=== PATIENT | female | born 1965 | race Caucasian/White ===

== ENCOUNTER 2022-04-09 09:48 | Outpatient (REF) | payer OTHER, SELFPAY ==
--- NOTE | ~2022-04-09 | US_ITS ---
EXAMINATION: US PELVIS CLINICAL INFORMATION: Postmenopausal bleeding. COMPARISON: None TECHNIQUE: Ultrasound of the pelvis was performed using both transabdominal and transvaginal transducers along with Doppler. Transvaginal imaging was performed due to inadequate visualization transabdominally. FINDINGS: UTERUS: The uterus is anteverted and measures 16.5 x 8.7 x 9.6 cm. The double wall endometrial thickness is 1.21 cm. The uterus is smooth in contour and has normal myometrial echogenicity. There are several hypoechoic lesions seen. 1. Lesion in the fundus measures 3.7 x 3.2 x 4.5 cm. 2. Lesion in the mid body of the uterus posteriorly measures 2.9 x 2.7 x 2.7 cm. 3. Posterior lesion in the body of the uterus measures 3.4 x 3.4 x 4.0 cm. 4. Lesion in body of the uterus mid segment measures 3.4 x 2.2 x 3.8 cm. 5. Lesion in the right fundus posteriorly measures 2.8 x 2.3 x 3.4 cm. ADNEXA: Both ovaries are visualized. There is normal color flow to the adnexa. There is no ovarian torsion. There is no pelvic ascites or fluid collection. The right ovary measures 2.2 x 1.8 x 1.5 cm and volume 2.9 mL. The left ovary is not visualized. US/US pelvic and transvaginal IMPRESSION: Slightly bulky, enlarged uterus with multiple fibroids. Mild endometrial thickness measuring 1.2 cm on the limited views. Unremarkable right ovary. The left ovary is not seen.
== END 2022-04-09 09:49 | disposition home or self-care (01) ==
LOC: HO.HMGCX 09:48
PROVIDERS: Visit Provider Student in an Organized Health Care Education/Training Program
DX: N95.0 Postmenopausal bleeding (principal); Z78.0 Asymptomatic menopausal state
CPT/HCPCS: 76830; 76856

== ENCOUNTER 2022-10-02 17:30 | Outpatient (REF) | payer OTHER, SELFPAY | END 2022-10-02 17:31 | disposition home or self-care (01) | LOC: HO.LNP 17:30 | DX: R30.0 Dysuria (principal) | CPT/HCPCS: 87086 ==

== ENCOUNTER 2023-11-06 10:12 | Emergency (ER) | payer OTHER, SELFPAY ==
--- NOTE | ~2023-11-06 | CT_ITS ---
EXAMINATION: CT ABDOMEN AND PELVIS WITHOUT CONTRAST CLINICAL INFORMATION: Constipation for 2 weeks COMPARISON: None available. TECHNIQUE: Multidetector volumetric imaging was performed from the superior aspect of the liver through the pubic symphysis. Sagittal and coronal reformatted images were obtained on the technologist's workstation. This CT examination was performed using dose optimization techniques as appropriate, variously including the following: *Automated exposure control *Adjustment of mA and/or kV according to patient size (this includes techniques or standardized protocols for targeted exams where dose is matched to indication/reason for exam; i.e. extremities or head) *Use of iterative reconstruction technique DLP: 865 mGy-cm FINDINGS: Evaluation of solid organs, vascular structures, and bowel wall limited in the absence of intravenous contrast. LUNG BASES: Coronary artery calcification present, incompletely visualized. Visualized lung bases otherwise unremarkable. LIVER AND BILIARY TREE: Hepatomegaly with liver spanning 20.7 cm in craniocaudal dimension. No focal hepatic lesions identified. GALLBLADDER: Unremarkable. PANCREAS: Unremarkable. SPLEEN: Unremarkable. ADRENAL GLANDS: Unremarkable. KIDNEYS AND URETERS: Unremarkable. GASTROINTESTINAL TRACT: Mild scattered colonic diverticulosis without evidence for acute diverticulitis. Minimal colonic stool burden. Normal appendix. VASCULAR: Mild aortoiliac calcific atherosclerosis. LYMPH NODES: No lymphadenopathy. PERITONEUM: No ascites. BLADDER: Unremarkable. PELVIC VISCERA: Globular enlargement of the uterus with scattered calcifications, suboptimally visualized though likely represents myomas. ABDOMINAL AND PELVIC WALL: Unremarkable. OSSEOUS STRUCTURES: Mild multilevel degenerative spondylosis of the visualized lower thoracic spine. Lower lumbar facet arthropathy. CT/CT abdomen pelvis wo IV con IMPRESSION: 1. No acute abnormality of the abdomen or pelvis within the limitations of noncontrast technique. Minimal colonic stool burden, as clinically queried. 2. Hepatomegaly. 3. Probable coronary artery calcifications. Correlate with cardiac risk factors.
--- NOTE | ~2023-11-06 | XR_ITS ---
EXAMINATION: XR ABDOMEN KUB CLINICAL INDICATION: Constipation COMPARISON: None available. TECHNIQUE: AP view of the abdomen. FINDINGS: The bowel gas pattern is normal with no evidence of ileus or obstruction. No unusual soft tissue calcifications are noted. The bones are unremarkable. XR/XR KUB IMPRESSION: Unremarkable examination.
[2023-11-06 10:20] VITALS: BP 143/63; PULSE 87; RESP 18; TEMP 36.7; O2SAT 97; BMI 47.5
[2023-11-06 11:12] VITALS: BP 149/83; RESP 18; TEMP 36.5; O2SAT 96
--- NOTE | 2023-11-06 11:16 | ED_ITS ---
HPI - General Adult General Chief complaint: Abdominal Pain Stated complaint: constipation 2weeks Time Seen by Provider: 11/06/23 10:54 Source: patient Mode of arrival: ambulatory Limitations: physical limitation (vision impairment) History of Present Illness HPI narrative: 58 year old female with a history of legally blind, IBS, HTN, HLD, anemia on supplemental iron, hemorrhoids, uterine fibroids, heavy menses, urine incontinence, tooth abscess presenting with constipation for 2 weeks. Patient reports her last bowel movement was 2-3 days ago up until yesterday when she took laxatives at home. She reports she had a bowel movement last night following the laxatives that required straining, but it was not the bowel movement I was looking for . Patient denies abdominal pain, but reports discomfort. Patient reports she was taking Metamusal daily, but stopped because it upset her stomach. Patient reports her stools are typically loose and occur 1-2 times per day. Patient denies fever, chills, recent sick contacts, nausea, vomiting, diarrhea or hematochezia. Patient reports pain with defecation, and a history of blood. Patient reports stools last night were dark. Of note, patient was on supplemental iron for anemia caused by heavy menses, but states that she has not had her period in over 1 year. Related Data Home Medications Medication Instructions Recorded Confirmed ferrous sulfate 325 mg (65 mg 325 mg PO DAILY 10/02/22 10/02/22 iron) tablet (FeroSul) lisinopril 10 mg tablet 10 mg PO DAILY 10/02/22 10/02/22 pravastatin 40 mg tablet 40 mg PO DAILY 10/02/22 10/02/22 Previous Rx's Medication Instructions Recorded docusate sodium 100 mg capsule 100 mg PO BID #20 caps 11/06/23 (Colace) sennosides 8.6 mg tablet (senna) 8.6 mg PO BEDTIME #14 tabs 11/06/23 Allergies Allergy/AdvReac Type Severity Reaction Status Date / Time seafood Allergy Itching Verified 11/06/23 10:20 Review of Systems 2 Review of Systems: Constitutional : No Weight loss, No Fever, No Chills, No Fatigue, No Malaise ENT/Mouth : No sore throat, No Rhinorrhea Eyes: No Eye Pain, No Swelling, No Redness Cardiovascular : No Chest Pain, No SOB, No Dyspnea on Exertion, No Orthopnea, No Edema, No Palpitations Respiratory : No Cough, No Sputum, No Wheezing Gastrointestinal :+ Constipation. No Nausea, No Vomiting, No Diarrhea, + abdominal Pain, No Hematochezia, No Melena Genitourinary : No Dysuria, No Urinary Frequency, No Hematuria, Musculoskeletal : No joint pain, No Myalgias, No Joint Swelling Skin : No Skin Lesions, No rash Neuro : No Weakness, No Numbness, No Dizziness, No Headache Psych : No Anxiety/Panic, No Depression Heme/Lymph: No Bruising, No Bleeding,No Lymphadenopathy Endocrine : No Polyuria, No Polydipsia All other systems reviewed and are negative Yes all other systems are reviewed and are negative [facility] Past Medical History Attestation statement: The following information was validated with the patient. Source: old records reviewed and nursing notes reviewed Onset Date is defined in the Problem List Problems that require an onset date and time if occurred within 24 hrs of arrival to the ED Aortic Dissection and Rupture; Neurologic impairment; Cardiopulmonary Arrest; Endotracheal Intubation; Insertion or Replacement of Mechanical Circulatory Assist Device Medical History Dysuria Social History Social History Alcohol intake: former Smoked in Last 30 Days: No Use of substances other than those prescribed or required for medical reasons: No Advance Directives: No Advance Directives Information Provided: Yes Physical Exam ED Vital Signs: Vital Signs - 24 hr 11/06/23 10:20 11/06/23 11:12 11/06/23 15:31 Temperature 98.0 F 97.7 F 97.7 F Pulse Rate 87 81 Respiratory Rate 18 18 18 Blood Pressure 143/63 H 149/83 H 131/64 Pulse Oximetry 97 96 100 Oxygen Delivery Method Room Air Room Air Room Air BMI result Body Mass Index 47.5 Vital signs significant for hypertension Appearance: Alert.? Oriented X3.?Anxious, tapping foot while sitting on the edge of the bed. No acute distress.? Head: Normocephalic, atraumatic, no step-offs or deformities Eyes: Pupils equal, round and reactive to light.? ENT: Pharynx normal.??External ears normal, TMs normal bilaterally and EAC's normal. No pain with manipulation of external ears bilaterally. No mastoid tenderness. Neck: Normal inspection.? Neck supple.? CVS: Normal heart rate and rhythm.? Pulses normal.? Respiratory: No respiratory distress.? Breath sounds normal.? Abdomen: Soft, nondistended with mild discomfort to palpation in the later right and lower quadrants. Bowel sounds present throughout. Skin: Skin warm and dry.? Normal skin color.? Normal skin turgor.? Extremities: No lower extremity edema.? No calf ttp. 5/5 strength to bilateral upper and lower extremities Back: No midline tenderness, no C-spine tenderness, full range of motion, no CVA tenderness bilaterally Neuro: Oriented X 3.? No motor deficit.? No sensory deficit. CN 2-12 intact Course Reevaluation(s) Reevaluation #1: CBC unremarkable. Chemistry unremarkable. UA contaminated no UTI sx. CT no acute abnormality. Hepatomegaly. Coranary artery calcifications. Patient without pain. Will discharge home on senna and Colace. Feeling well. Ambulating without difficulty. Time: 16:18 Medical Decision Making Medical Decision Making [facility] Narrative: 58 year old female presenting with constipation for 2 weeks, last BM yesterday PE significant for LLQ and RLQ abdominal discomfort. Negative McBurneys. Most likely constipation secondary to iron supplementation vs slow transit. Unlikely obstruction, appendicitis, dehydration, IBS, diverticulosis, acute abdomen. Will obtain KUB to rule out obstruction although unlikely Plan labs, imaging. Differential Diagnosis Differential Diagnoses: The differential diagnosis associated with the presentation includes Most likely constipation secondary to iron supplementation vs slow transit. Unlikely obstruction, appendicitis, dehydration, IBS, diverticulosis, acute abdomen. Will obtain KUB to rule out obstruction although unlikely Admission/Observation Consideration of admission/observation: Escalation of care including admission/observation considered Lab Data [facility] Lab Attestation statement: I reviewed the patient's lab results. CBC WNL CMP WNL UA significant for 1+ leukocytes and 2+ bacteria 11/06/23 12:23 11/06/23 12:23 Labs: Lab Results 11/06/23 11/06/23 Range/Units 12:23 12:46 WBC 8.2 (4.8-10.8) X10*3/uL RBC 4.44 (4.20-5.50) X10*6/uL Hgb 13.6 (12.0-16.0) g/dl Hct 41.0 (37.0-47.0) % MCV 92.3 (80.0-98.0) fL MCH 30.6 (27.0-33.0) pg MCHC 33.2 (31.0-35.0) g/dl RDW 12.8 (11.0-16.0) % Plt Count 297 (160-400) X10*3/uL MPV 9.9 (9.4-12.3) fL Immature Gran % (Auto) 0.4 (0.0-0.4) % Neut % (Auto) 57.6 (45-73) % Lymph % (Auto) 31.0 (20-40) % [place] % (Auto) 8.7 (2-11) % Eos % (Auto) 1.8 (0-4) % Baso % (Auto) 0.5 (0-2) % Lymph # (Auto) 2.5 (1.2-4.9) X10*3/uL [place] # (Auto) 0.7 (0.1-1.2) X10*3/uL Eos # (Auto) 0.2 (0.0-0.4) X10*3/uL Baso # (Auto) 0.0 (0.0-0.2) X10*3/uL Abs Immat Gran (auto) 0.03 (0.00-0.03) X10*3/uL Absolute Neuts (auto) 4.7 (2.0-8.3) x10*3/uL Absolute Nucleated RBC 0.000 (0.0-0.012) X10*3/uL Nucleated RBC % (auto) 0.0 (0.0-0.2) /100WBC Sodium 137 (135-145) mmol/L Potassium 4.3 (3.3-5.1) mmol/L Chloride 106 (96-108) mmol/L Carbon Dioxide 21 L (22-29) mmol/L Anion Gap 14 (12-20) BUN 13 (9-16) mg/dL Creatinine 0.74 (0.5-1.4) mg/dL Estim Creat Clear Calc 119.2 Estimated GFR > 60 Random Glucose 105 (60-115) mg/dL Calcium 9.5 (8.4-10.2) mg/dL Total Bilirubin 0.3 (0.0-1.0) mg/dL AST 14 (5-31) U/L ALT 16 (0-31) U/L Alkaline Phosphatase 91 (39-117) U/L Total Protein 7.2 (6.5-8.0) g/dL Albumin 4.1 (3.5-5.0) g/dL Urine Color Yellow Urine Appearance Clear Urine pH 6.5 (5.0-9.0) Ur Specific [place] 1.025 (1.005-1.025) Urine Protein Negative (Neg-Trace) mg/dL Urine Glucose (UA) Negative (Negative) mg/dL Urine Ketones Negative (Negative) mg/dL Urine Blood Negative (Negative) Urine Nitrite Negative (Negative) Ur Leukocyte Esterase Small (1+) H (Negative) Urine RBC 0-2 (0-2) /HPF Urine WBC 0-5 (0-5) /HPF Ur Squamous Epith Cells 11-20 (0-2) /HPF Urine Bacteria 2+ (None Seen) Hyaline Casts 0-2 (0-2) /LPF Independent Interpretation I performed an independent interpretation of an: Plain X-Ray (XR/XR KUB IMPRESSION: Unremarkable examination.) and CT Scan (CT/CT abdomen pelvis wo IV con IMPRESSION: 1. No acute abnormality of the abdomen or pelvis within the limitations of noncontrast technique. Minimal colonic stool burden, as clinically queried. 2. Hepatomegaly. 3. Probable coronary artery calcifications. Correlate with cardiac risk factors) Interpretation: XR/XR KUB IMPRESSION: Unremarkable examination. Radiology Impression Discussion of test interpretation with radiology: I have reviewed the radiologist's reading. Radiologist Impression: XR/XR KUB IMPRESSION: Unremarkable examination. External Record Review External record reviewed: Inpatient record and Outpatient record Critical Care Time Critical Care Time Critical Care Time: No Discharge Plan Discharge Clinical Impression: Constipation, Abdominal pain Patient Disposition: Home, Self-Care Instructions: Constipation (ED) Additional Instructions: Take your medications as prescribed. If you were prescribed antibiotics today, it is important that you take your medication to their entirety, do not skip any doses, do not finish them early. Follow-up with your primary care provider this week. Return to the emergency department with new or worsening symptoms. Such as fevers, chills, chest pain, shortness of breath, nausea, vomiting, dizziness, headache, vision changes, lethargy In case of emergency call 911 Prescriptions: New sennosides [senna] 8.6 mg tablet 8.6 mg PO BEDTIME Qty: 14 0RF docusate sodium [Colace] 100 mg capsule 100 mg PO BID Qty: 20 0RF No Action pravastatin 40 mg tablet 40 mg PO DAILY lisinopril 10 mg tablet 10 mg PO DAILY ferrous sulfate [FeroSul] 325 mg (65 mg iron) tablet 325 mg PO DAILY Referrals: [facility] [place] [facility] [Provider Group] - 3 days Karina Minor MD [Primary Care Provider] - 2 days Stand Alone Forms: Work/School Release
--- NOTE | 2023-11-06 11:16 | PC.NURSE ---
Patient reports has had trouble going to the bathroom lately. Reports gave herself 2 laxatives last night and had diarrhea but still feels as though she has something in her rectum. Reports feeling anxious like she is going to have a panic attack. Reports 01/01 left sided lower abdominal and back pain
[2023-11-06 12:28] LABS: MANUAL DIFF FLAG NO
[2023-11-06 12:30] LABS: Basophils Percent Auto 0.5 % (0-2); Eosinophils Absolute Auto 0.2 X10*3/uL (0.0-0.4); Eosinophils Percent Auto 1.8 % (0-4); Hemoglobin 13.6 g/dl (12.0-16.0); Imm Gran Abs Auto 0.03 X10*3/uL (0.00-0.03); Imm Gran Pct Auto 0.4 % (0.0-0.4); Lymphocytes Absolute Auto 2.5 X10*3/uL (1.2-4.9); Mean Corpuscular HGB Conc 33.2 g/dl (31.0-35.0); Mean Corpuscular Hemoglobin 30.6 pg (27.0-33.0); Mean Corpuscular Volume 92.3 fL (80.0-98.0); Mean Platelet Volume 9.9 fL (9.4-12.3); Monocytes Absolute Auto 0.7 X10*3/uL (0.1-1.2); Monocytes Percent Auto 8.7 % (2-11); Neutrophils Absolute Auto 4.7 x10*3/uL (2.0-8.3); Neutrophils Percent Auto 57.6 % (45-73); Platelet Count 297 X10*3/uL (160-400); Red Blood Count 4.44 X10*6/uL (4.20-5.50); Red Cell Distribution Width 12.8 % (11.0-16.0); White Blood Count 8.2 X10*3/uL (4.8-10.8)
[2023-11-06 12:47] LABS: Alanine Aminotransferase 16 U/L (0-31); Albumin Level 4.1 g/dL (3.5-5.0); Alkaline Phosphatase 91 U/L (39-117); Anion Gap 14 (12-20); Aspartate Amino Transferase 14 U/L (5-31); Bilirubin Total 0.3 mg/dL (0.0-1.0); Blood Urea Nitrogen 13 mg/dL (9-16); Calcium 9.5 mg/dL (8.4-10.2); Carbon Dioxide 21 mmol/L (22-29); Chloride 106 mmol/L (96-108); Creatinine Clr Calc Pharmacy 119.2; Estimated Glomerular Filt Rate > 60; Glucose Random 105 mg/dL (60-115); Potassium 4.3 mmol/L (3.3-5.1); Sodium 137 mmol/L (135-145); Total Protein 7.2 g/dL (6.5-8.0)
[2023-11-06 12:53] LABS: Appearance Urine Clear; Color Urine Yellow; Glucose Urine UA Negative (Negative); Leukocyte Esterase Urine Small (1+) (Negative); Nitrite Urine Negative (Negative); PH 6.5 (5.0-9.0); Specific Gravity - Urine 1.025 (1.005-1.025); UMIC TRIGGER UACC YES; Urine Blood Negative (Negative); Urine Ketones Negative (Negative); Urine Protein Negative (Neg-Trace)
[2023-11-06 13:04] LABS: Bacteria Urine 2+ (None Seen); Hyaline Casts Urine 0-2 /LPF (0-2); RBC Urine 0-2 /HPF (0-2); UACC Culture Trigger YES; WBC Urine 0-5 /HPF (0-5)
[2023-11-06 15:31] VITALS: BP 131/64; PULSE 81; RESP 18; TEMP 36.5; O2SAT 100
--- NOTE | 2023-11-06 17:15 | PC.NURSE ---
Patient with multiple large bms, reports feeling better and ready for discharge
== END 2023-11-06 17:33 | disposition home or self-care (01) ==
PROVIDERS: Physician Assistant; Emergency Provider Emergency Medicine; PCP Student in an Organized Health Care Education/Training Program
DX: K59.00 Constipation, unspecified (principal); R10.31 Right lower quadrant pain; R10.32 Left lower quadrant pain
CPT/HCPCS: 36415; 74018; 74176; 80053; 81001; 85025; 87086; 99284

== ENCOUNTER 2024-01-19 10:47 | Outpatient (AMB) | payer OTHER, SELFPAY ==
[2024-01-19 11:09] VITALS: BP 140/80; PULSE 90; TEMP 36.6; O2SAT 97; BMI 45.8
--- NOTE | 2024-01-19 11:09 | MHC.OFFWIV ---
Intake Vital Signs 01/19/24 11:09 Height 5 ft 6 in Weight 284 lb BMI 45.8 BP 140/80 H Blood Pressure Location Lt brachial Position Sitting Pulse 90 Pulse Source Pulse Oximeter Temp 97.8 F Temp Source Temporal Artery Scan Pulse Oximetry (%) 97 Oxygen Delivery Method Room Air Intake Visit Reasons: EP Cough, mucus Intake Note: pt is here today for cough mucus started 1 week ago Patient Tobacco Use Status: Never used Tobacco Allergies seafood Allergy (Verified 01/19/24 11:37) Itching Do you need a note to return to daycare/school/sports/work: No HPI HPI Comments History of Present Illness Details 58-year-old female comes in today complaining of increasing mucus and cough. She states she has no fever chills sweats or chest pain she is having just excessive mucus. She states she was using [place] cold and flu that was clearing up the symptoms but she has run out PFSH Medical History Dysuria Social History Alcohol intake: former Patient Tobacco Use Status: Never used Tobacco Review of Systems Const All systems reviewed & are unremarkable except as noted in HPI and below Physical Exam Vital Signs: Last Vital Signs Temp 97.8 F 01/19/24 11:09 Pulse 90 01/19/24 11:09 BP 140/80 H 01/19/24 11:09 Pulse Ox 97 01/19/24 11:09 Oxygen Delivery Method Room Air 01/19/24 11:09 BMI result Body Mass Index 45.8 HEENT Head: Yes normal to inspection, Yes normocephalic and Yes atraumatic Ears: hearing grossly normal bilaterally and TM's normal bilaterally General nose exam: Normal external nose present Face and sinus: Yes normal facial exam Throat: Yes posterior oropharynx normal Resp Auscultation: clear to auscultation bilaterally Cardio Rate: regular rate Rhythm: regular rhythm Assessment & Plan Assessment & Plan (1) Cough: Code(s): R05.9 - Cough, unspecified Plan: Push fluids follow up with PCP Plan See plan Orders: Orders SARS-CoV2/FLU/RSV Today R05.9 - Cough, unspecified Medications: New benzonatate 100 mg PO Q4H PRN 14 caps 0RF cough Coding Level of Care Code Est Pt Level 3 (73173) Diagnoses Cough R05.9
== END 2024-01-19 12:41 | disposition home or self-care (01) ==
PROVIDERS: PCP Student in an Organized Health Care Education/Training Program; Visit Provider Physician Assistant Medical
DX: R05.9 Cough, unspecified (principal)
CPT/HCPCS: 99213

== ENCOUNTER 2024-01-19 12:07 | Outpatient (REF) | payer OTHER, SELFPAY ==
[2024-01-19 14:40] LABS: Influenza A PCR NEGATIVE (Negative); Influenza B PCR NEGATIVE (Negative); Resp Syncy Virus RNA Qual PCR NEGATIVE (Negative); SARS COV2 PCR INHOUSE NEGATIVE (Negative)
== END 2024-01-19 12:08 | disposition home or self-care (01) ==
LOC: HO.LAB 12:07
PROVIDERS: Physician Assistant Medical
DX: R05.9 Cough, unspecified (principal)
CPT/HCPCS: 0241U

== ENCOUNTER 2024-02-15 10:56 | Outpatient (AMB) | payer OTHER, SELFPAY ==
--- NOTE | 2024-02-15 10:57 | MHC.OFFVIS ---
Vital Signs 02/15/24 11:06 Height 5 ft 6 in Weight 286 lb 9.615 oz BMI 46.3 BP 144/64 H Blood Pressure Location Lt radial Position Sitting Pulse 101 H Intake Visit Reasons: Constipation Intake Note: Radha presents in the office as a new patient for constipation. CC: She states that she is hard of seeing and states she did have anemia - she was taking iron but was cured of her anemia so that was causing some constipation. Constipation off and on. She states she had to go to Urgent Care and they had to put a saline enema. Allergies seafood Allergy (Verified 02/15/24 11:03) Itching HPI Comments Details: This is a 58y.o F with PMH of HTN, IBS, cone-hayes dystrophy who is here for worsening constipation. Reports that used to go to have BMs that were regular and soft but for the past few months has been noticing BMs are now hard and only goes 3 times a week. Has to take stool softener or suppositories to help which does help very well. Diet is poor in fiber (pop tart, mcdonalds) - fluid intake is around 30-40oz per day. Lifestyle is sedentary. Had a colo when she turned 52 - done at [facility]. Recall 10 years per pt's report. PFSH Medical History Dysuria Surgical History Hx of colonoscopy Social History Alcohol intake: former Patient Tobacco Use Status: Never used Tobacco Review of Systems Const All systems reviewed & are unremarkable except as noted in HPI and below Physical Exam Vital Signs: Last Vital Signs Pulse 101 H 02/15/24 11:06 BP 144/64 H 02/15/24 11:06 BMI result Body Mass Index 46.3 No acute distress, with obesity Nonicteric No overt respiratory effort Abdomen soft, nondistended Const General: comfortable and no acute distress HEENT Head: Yes normocephalic and Yes atraumatic Resp Effort & Inspection: normal respiratory effort and able to speak in complete sentences Assessment & Plan Assessment & Plan (1) Chronic idiopathic constipation: Code(s): K59.04 - Chronic idiopathic constipation Category: Medical Plan Overall assessment consistent with CIC, likely due to lack of dietary fiber, hydration and activity. Plan: -fiber, patient advised to take 25-30 g per day. Can take psyllium/Metamucil supplement -increase fluid intake -increase activity -elevated legs while having bowel movement -add senna 2 tablets at bedtime or in the morning 30-40 minutes before breakfast -if still no response to above, can add MiraLax if needed -up-to-date on colorectal cancer screening -follow-up in 6 weeks to review response Medications: Changed From sennosides (senna) 8.6 mg PO BEDTIME 14 tabs 0RF To sennosides (senna) 17.2 mg (2 x 8.6 mg) PO BEDTIME PRN 60 tabs 0RF constipation 30 days Discontinued docusate sodium (Colace) Discontinued Reason: Doctor's Order 100 mg PO BID 20 caps 0RF Coding Level of Care Code New Pt Level 4 (90194) Diagnoses Chronic idiopathic constipation K59.04
[2024-02-15 11:06] VITALS: BP 144/64; PULSE 101; BMI 46.3
== END 2024-02-15 12:05 | disposition home or self-care (01) ==
PROVIDERS: PCP Student in an Organized Health Care Education/Training Program; Visit Provider Internal Medicine
DX: K59.04 Chronic idiopathic constipation (principal)
CPT/HCPCS: 99204

== ENCOUNTER → 2024-02-15 10:56 | Outpatient (BNVA) | payer OTHER, SELFPAY | PROVIDERS: PCP Student in an Organized Health Care Education/Training Program; Visit Provider Internal Medicine | DX: K59.04 Chronic idiopathic constipation (principal) | CPT/HCPCS: 99202 ==

== ENCOUNTER 2024-07-03 09:33 | Outpatient (AMB) | payer OTHER, SELFPAY ==
--- NOTE | 2024-07-03 11:16 | MHC.OFFWIV ---
Intake Vital Signs 07/03/24 11:18 Height 5 ft 6 in Weight 280 lb BMI 45.2 BP 130/80 Blood Pressure Location Lt brachial Position Sitting Pulse 70 Pulse Source Pulse Oximeter Pulse Oximetry (%) 99 Oxygen Delivery Method Room Air Intake Visit Reasons: EP-rt eye swollen/sore throat Intake Note: pt c/o sore throat and RT eye swollen which has been present for a couple of days. Patient Tobacco Use Status: Never used Tobacco Allergies seafood Allergy (Verified 07/03/24 11:21) Itching Do you need a note to return to daycare/school/sports/work: No HPI HPI Comments History of Present Illness Details Patient is a 59-year-old female complaining of 2 days of eye crusting, she states she is legally blind in that eye so it is difficult to tell what color the crust is. She denies any pain in her eye, she denies any changes to her baseline blurry vision, legal blindness. She states she is not black blind in that eye but she can see stuff that is fuzzy and this has remained unchanged since her symptoms started. She denies any fevers, cough but does endorse a sore throat. She denies any shortness of breath, fevers, ear pain or sinus pain. PFSH Medical History Dysuria Surgical History Hx of colonoscopy Social History Alcohol intake: former Patient Tobacco Use Status: Never used Tobacco Review of Systems Const All systems reviewed & are unremarkable except as noted in HPI and below Physical Exam Vital Signs: Last Vital Signs Pulse 70 07/03/24 11:18 BP 130/80 07/03/24 11:18 Pulse Ox 99 07/03/24 11:18 Oxygen Delivery Method Room Air 07/03/24 11:18 BMI result Body Mass Index 45.2 Const General: cooperative, healthy appearing, comfortable and no acute distress Orientation/consciousness: patient oriented x3 Limitations: no limitations HEENT Head: Yes normal to inspection Ears: hearing grossly normal bilaterally, external ears normal and TM's normal bilaterally General nose exam: Normal external nose present, Normal nares present and No nasal discharge present Face and sinus: Yes normal facial exam Mouth: Normal oral and palatal mucosa present and moist mucous membranes Throat: Yes tonsils normal, Yes uvula midline and Yes posterior oropharynx abnormal (Erythema) Eyes Alignment and Position: alignment normal Periorbital: periorbital findings normal Eyelids: Yes eyelid abnormality (right swelling upper and lower) Conjunctivae: conjunctival abnormal right conjunctival injection and discharge (yellow crusting) Sclerae: sclerae normal Neck Neck: Yes normal visual inspection Resp Effort & Inspection: normal respiratory effort and able to speak in complete sentences Skin General skin exam: no rashes or lesions noted Neuro General: patient oriented x3 Extrem General: Yes normal to inspection and Yes no clubbing, cyanosis or edema Results AMB Rapid Strep AMB Rapid Strep Negative Last Edit by HETAL Carrasco on 07/03/24 11:46 Assessment & Plan Assessment & Plan (1) Bacterial conjunctivitis of right eye: Code(s): H10.9 - Unspecified conjunctivitis Plan: As patient is legally blind, we discussed erythromycin ointment versus eyedrops and we decided eyedrops will be easier for her to administer 2 herself. Recommended if she has any pain in the right eye or has any visual changes from her baseline that she go to the emergency department. Plan see above Orders: Orders AMB Rapid Strep Screen Today Z13.9 - Encounter for screening, unspecified Medications: New polymyxin B sulf-trimethoprim 10,000 unit- 1 mg/mL while awake; do not exceed 5 doses in 24 hours 1 drp ophthalmic (eye) Q4H 5 days 10 mL 0RF Coding Level of Care Code New Pt Level 3 (12949) Diagnoses Bacterial conjunctivitis of right eye H10.9
[2024-07-03 11:18] VITALS: BP 130/80; PULSE 70; O2SAT 99; BMI 45.2
== END 2024-07-03 12:03 | disposition home or self-care (01) ==
PROVIDERS: PCP Student in an Organized Health Care Education/Training Program; Visit Provider Physician Assistant
DX: H10.9 Unspecified conjunctivitis (principal); Z13.9 Encounter for screening, unspecified
CPT/HCPCS: 87880; 99203

== ENCOUNTER 2024-07-03 13:12 | Outpatient (REF) | payer OTHER, SELFPAY ==
[2024-07-03 17:40] LABS: Influenza A PCR NEGATIVE (Negative); Influenza B PCR NEGATIVE (Negative); Resp Syncy Virus RNA Qual PCR NEGATIVE (Negative); SARS COV2 PCR INHOUSE NEGATIVE (Negative)
== END 2024-07-03 13:13 | disposition home or self-care (01) ==
LOC: HO.LAB 13:12
PROVIDERS: Visit Provider Physician Assistant
DX: J06.9 Acute upper respiratory infection, unspecified (principal)
CPT/HCPCS: 0241U

== ENCOUNTER 2024-10-19 09:48 | Outpatient (AMB) | payer OTHER, SELFPAY ==
--- NOTE | 2024-10-19 10:56 | AM.OFFWIN_ITS ---
Intake Vital Signs 10/19/24 10:57 Height 5 ft 6 in Weight 284 lb BMI 45.8 BP 122/84 Blood Pressure Location Lt brachial Position Sitting Pulse 88 Pulse Source Pulse Oximeter Temp 98.1 F Temp Source Oral Pulse Oximetry (%) 97 Oxygen Delivery Method Room Air Intake Visit Reasons: EP-sinus, cough, b/l ears block Intake Note: Patient here for cough and bilat ear pain that has been present for about 1 week. Patient Tobacco Use Status: Never used Tobacco Allergies seafood Allergy (Verified 10/19/24 10:58) Itching Do you need a note to return to daycare/school/sports/work: No HPI EP-sinus, cough, b/l ears block HPI Details This note is constructed using voice recognition software. While every effort has been made to ensure accuracy, charger operator errors may have been included. The patient is a 59 year old female who presents to the clinic today with cough, congestion, bilateral ear offered for the past week. She reports that she has chronic allergies and takes Claritin. She denies fever, chills, dyspnea. She has tried [id number] cold medicine containing antihistamines which seemed to symptoms. She reports the cough is worse in the morning or when she lays down night. [facility] Medical History Dysuria Surgical History Hx of colonoscopy Social History Alcohol intake: former Patient Tobacco Use Status: Never used Tobacco Review of Systems Const All systems reviewed & are unremarkable except as noted in HPI and below Physical Exam Vital Signs: Last Vital Signs Temp 98.1 F 10/19/24 10:57 Pulse 88 10/19/24 10:57 BP 122/84 10/19/24 10:57 Pulse Ox 97 10/19/24 10:57 Oxygen Delivery Method Room Air 10/19/24 10:57 BMI result Body Mass Index 45.8 Const General: cooperative, healthy appearing, comfortable and no acute distress Orientation/consciousness: patient oriented x3 Limitations: no limitations HEENT Head: Yes normal to inspection Ears: hearing grossly normal bilaterally, external ears normal and TM abnormal retracted General nose exam: Normal external nose present, No nasal discharge present and Abnormal mucous membranes and turbinates present boggy and pale Face and sinus: Yes normal facial exam and Yes sinuses nontender Mouth: Normal oral and palatal mucosa present and moist mucous membranes Throat: Yes tonsils normal, Yes uvula midline, Yes posterior oropharynx abnormal (Erythema), Yes postnasal drainage and Yes cobblestoning Eyes General: appearance normal, both eyes and all related structures Neck Neck: Yes normal visual inspection Resp Effort & Inspection: normal respiratory effort, able to speak in complete sentences, Actively coughing, no respiratory distress, not tachypneic, no tripod positioning and no use of accessory muscles Auscultation: clear to auscultation bilaterally Cardio Rate: regular rate Rhythm: regular rhythm Heart sounds: normal S1 and S2 Skin General skin exam: no rashes or lesions noted Neuro General: patient oriented x3 Extrem General: Yes normal to inspection and Yes no clubbing, cyanosis or edema Assessment & Plan Assessment & Plan (1) Allergic rhinitis: Code(s): J30.9 - Allergic rhinitis, unspecified Qualifiers: Allergic rhinitis trigger: unspecified Allergic rhinitis seasonality: unspecified Qualified Code(s): J30.9 - Allergic rhinitis, unspecified Plan: Supportive measures encouraged and reviewed. Advised patient to try a Flonase nasal spray and second-generation antihistamine such as Zyrtec, Claritin, Shannon or similar. Advised consideration of sinus rinse if needed. Advised patient to follow up with primary care provider with worsening or failure to resolve. Viral swab obtained to rule out Covid, Influenza, and RSV based on symptoms. Advised mask wearing while symptomatic and quarantine per current CDC guidelines. Reviewed at home support methods including hydration, humidification, vix vapor rub, sinus rinse, and otc treatment options. Discussed treatment with antiviral therapy for covid with paxlovid and with Tamiflu for influenza, including appropriate use and side effects, and need to start medication within 5 day of symptom onset, preferably within 48 hours of symptom onset. Patient is outside of treatment window with antiviral therapy. Advised follow up with worsening symptoms such as dyspnea at rest, which would require emergent evaluation. Plan See above for full details and plan. Orders: Orders SARS-CoV2/FLU/RSV Today J06.9 - Acute upper respiratory infection, unspecified Medications: New fluticasone propionate 50 mcg/actuation administer into each nostril 1 spray intranasal BID 16 grams 0RF Coding Level of Care Code Est Pt Level 3 (13833) Diagnoses Allergic rhinitis, unspecified seasonality, unspecified trigger J30.9 Allergic rhinitis trigger: unspecified Allergic rhinitis seasonality: unspecified
[2024-10-19 10:57] VITALS: BP 122/84; PULSE 88; TEMP 36.7; O2SAT 97; BMI 45.8
== END 2024-10-19 12:01 | disposition home or self-care (01) ==
PROVIDERS: PCP Student in an Organized Health Care Education/Training Program; Visit Provider Registered Nurse
DX: J30.9 Allergic rhinitis, unspecified (principal)

== ENCOUNTER 2024-10-24 10:47 | Emergency (ER) | payer OTHER, SELFPAY ==
--- NOTE | ~2024-10-24 | XR_ITS ---
EXAMINATION: XR CHEST CLINICAL INFORMATION: cough 1 week COMPARISON: None available. TECHNIQUE: 2 views of the chest were obtained. FINDINGS: No significant abnormality is noted involving the heart, lungs, mediastinum, bony thorax or soft tissues. XR/XR chest 2V IMPRESSION: Unremarkable chest examination. Electronically signed by: Waldemar Kidd MD 10/24/2024 11:56 AM [facility]
--- NOTE | 2024-10-24 11:05 | ED.GENADULT ---
HPI - General Adult General Chief complaint: Upper Respiratory Symptoms Stated complaint: Cough, wheezing Time Seen by Provider: 10/24/24 11:39 Source: patient Mode of arrival: ambulatory Limitations: no limitations History of Present Illness ED Provider: QUANG LANDRY PA-C HPI narrative: 59 year old female presents to the ED today for evaluation of productive cough and nasal congestion x1 week. Reports yellow sputum. symptoms are primarily when she lies down for bed at night. She was evaluated at walk-in clinic a few days ago where she tested negative for covid/flu/rsv and was prescribed flonase. She has been taking this without much improvement. denies fever, chills, sore throat, chest pain, hemoptysis. No recent travel/ long car rides. She does occasionally go out for [employer] and is unsure if she was around anyone who was ill there. No hx asthma/ COPD. Related Data Home Medications ?Medication ?Instructions ?Recorded ?Confirmed lisinopril 10 mg tablet 10 mg PO DAILY 10/02/22 10/02/22 pravastatin 40 mg tablet 40 mg PO DAILY 10/02/22 10/02/22 lisinopril 20 mg tablet 20 mg PO DAILY 07/03/24 Previous Rx's ?Medication ?Instructions ?Recorded sennosides 8.6 mg tablet (senna) 17.2 mg (2 x 8.6 mg) PO BEDTIME 02/15/24 PRN constipation 30 days #60 tabs polymyxin B sulfate 10,000 1 drp ophthalmic (eye) Q4H 5 days 07/03/24 unit-trimethoprim 1 mg/mL eye drops #10 mL fluticasone propionate 50 1 spray intranasal BID #16 grams 10/19/24 mcg/actuation nasal spray,suspension azithromycin 250 mg tablet See Rx Instructions PO .COMPLEX #6 10/24/24 tabs guaifenesin 200 mg tablet 200 mg PO TID PRN cough #10 tabs 10/24/24 prednisone 20 mg tablet 40 mg (2 x 20 mg) PO DAILY 3 days 10/24/24 #6 tabs Allergies Allergy/AdvReac Type Severity Reaction Status Date / Time seafood Allergy Itching Verified 10/24/24 11:09 Review of Systems Review of Systems: Yes all other systems are reviewed and are negative PMFSH Past Medical History Attestation statement: The following information was validated with the patient. Source: old records reviewed and nursing notes reviewed Medical History Dysuria Surgical History Hx of colonoscopy Social History Social History Alcohol intake: former Patient Tobacco Use Status: Never used Tobacco Advance Directives: No Physical Exam ED Vital Signs: Vital Signs - 24 hr 10/24/24 11:06 10/24/24 12:42 10/24/24 14:04 Temperature 98.6 F 98.3 F Pulse Rate 100 92 98 Respiratory Rate 18 19 18 Blood Pressure 157/70 H 142/73 H Pulse Oximetry 96 95 Oxygen Delivery Method Room Air Room Air 10/24/24 14:07 Temperature 98.3 F Pulse Rate 98 Respiratory Rate 18 Blood Pressure 142/73 H Pulse Oximetry 95 Oxygen Delivery Method Room Air BMI result Body Mass Index 44.9 hypertensive, vitals otherwise wnl General: Well appearing, in no acute distress. Skin: Warm, dry, intact. No rashes or lesions. Head: Normocephalic, atraumatic. EENT: Hearing is intact b/l. Conjunctiva clear. PERRLA. EOM intact. Moist mucous membranes.? Neck: Supple without LAD Cardiac: Chest wall symmetric. RRR Lungs: Normal respiratory effort without accessory muscle use. mild inspiratory wheeze Ext: Upper and lower extremities atraumatic, without tenderness, deformity, swelling or erythema Neuro: AOx3. Normal speech. Ambulating with steady gait. Psych: Appropriate mood and affect. Responds appropriately to questions. Course Course Course Narrative: This is a rapid medical exam performed by Maximilian Li NP: Additional HPI, ROS, PE not included below will be deferred to primary provider. Patient is a 59-year-old female presenting with complaint of cough and wheezing since Wednesday night. Seen at urgent care, tested negative for flu/Covid/RSV. Mild inspiratory wheezing. Plan: viral serology, CXR, basic labs Reevaluation(s) Reevaluation #1: CBC without leukocytosis or left shift. no anemia. h&h stable. chemistry without acute electrolyte abnormality requiring intervention. no jennie. liver function at baseline. bnp wnl - chf unlikely. she tested negative for covid/flu/rsv. cxr does not demonstrate pneumonia. treated w/ updraft in ED w/ improvement. > zpak, prednisone and guafenisen sent to pharmacy for suspected bronchitis. Patient has remained stable throughout ED visit today. Discussed worrisome signs and symptoms and when to return to the ED. All questions answered at this time. Patient is agreeable with disposition and stable for discharge. Medications Administered Discontinued Medications Generic Name Dose Route Start Last Admin Trade Name Freq PRN Reason Stop Dose Admin Albuterol Sulfate 2.5 mg 10/24/24 12:33 10/24/24 12:42 Albuterol Sulfate (0.083%) 2.5 Mg/3 Ml Vial.Neb INHALE 10/24/24 12:34 2.5 mg ONCE ONE Administration Medical Decision Making Medical Decision Making [facility] Narrative: 59 year old female presents to the ED today for evaluation of productive cough and nasal congestion x1 week. Patient is hypertensive, her vitals are otherwise wnl. afebrile. she is nontoxic appearing and in NAD. no respiratory distress, minimal inspiratory wheeze. Differential diagnosis includes viral syndrome, bronchitis, pneumonia, chf. unlikely ACS, arrhythmia, PE. Plan for viral testing, CXR, labs, re-evaluation. Differential Diagnosis Differential Diagnoses: The differential diagnosis associated with the presentation includes as above Admission/Observation Not indicated Lab Data [facility] Lab Attestation statement: I reviewed the patient's lab results. as above 10/24/24 11:20 10/24/24 11:20 Labs: Lab Results 10/24/24 Range/Units 11:20 WBC 8.2 (4.8-10.8) X10*3/uL RBC 4.36 (4.20-5.50) X10*6/uL Hgb 13.2 (12.0-16.0) g/dl Hct 40.4 (37.0-47.0) % MCV 92.7 (80.0-98.0) fL MCH 30.3 (27.0-33.0) pg MCHC 32.7 (31.0-35.0) g/dl RDW 13.3 (11.0-16.0) % Plt Count 300 (160-400) X10*3/uL MPV 9.7 (9.4-12.3) fL Immature Gran % (Auto) 0.2 (0.0-0.4) % Neut % (Auto) 57.1 (45-73) % Lymph % (Auto) 29.6 (20-40) % [place] % (Auto) 11.1 H (2-11) % Eos % (Auto) 1.5 (0-4) % Baso % (Auto) 0.5 (0-2) % Lymph # (Auto) 2.4 (1.2-4.9) X10*3/uL [place] # (Auto) 0.9 (0.1-1.2) X10*3/uL Eos # (Auto) 0.1 (0.0-0.4) X10*3/uL Baso # (Auto) 0.0 (0.0-0.2) X10*3/uL Abs Immat Gran (auto) 0.02 (0.00-0.03) X10*3/uL Absolute Neuts (auto) 4.7 (2.0-8.3) x10*3/uL Absolute Nucleated RBC 0.000 (0.0-0.012) X10*3/uL Nucleated RBC % (auto) 0.0 (0.0-0.2) /100WBC Sodium 137 (135-145) mmol/L Potassium 4.1 (3.3-5.1) mmol/L Chloride 107 (96-108) mmol/L Carbon Dioxide 21 L (22-29) mmol/L Anion Gap 13 (12-20) BUN 16 (9-16) mg/dL Creatinine 0.69 (0.5-1.4) mg/dL Estim Creat Clear Calc 118.1 Estimated GFR > 60 Random Glucose 100 (60-115) mg/dL Calcium 9.2 (8.4-10.2) mg/dL Total Bilirubin 0.3 (0.0-1.0) mg/dL AST 27 (5-31) U/L ALT 41 H (0-31) U/L Alkaline Phosphatase 90 (39-117) U/L B-Natriuretic Peptide < 10 (<100) pg/mL Total Protein 7.3 (6.5-8.0) g/dL Albumin 4.0 (3.5-5.0) g/dL Influenza Type A (PCR) NEGATIVE (Negative) Influenza Type B (PCR) NEGATIVE (Negative) RSV RNA Qual (PCR) NEGATIVE (Negative) SARS-CoV-2 RNA (RT-PCR) NEGATIVE (Negative) Independent Interpretation I performed an independent interpretation of an: Plain X-Ray Interpretation: CXR without infiltrate or consolidation Radiology Impression Discussion of test interpretation with radiology: I have reviewed the radiologist's reading. Radiologist Impression: EXAMINATION: XR CHEST CLINICAL INFORMATION: cough 1 week COMPARISON: None available. TECHNIQUE: 2 views of the chest were obtained. FINDINGS: No significant abnormality is noted involving the heart, lungs, mediastinum, bony thorax or soft tissues. XR/XR chest 2V IMPRESSION: Unremarkable chest examination. Electronically signed by: Waldemar Kidd MD 10/24/2024 11:56 AM [facility] External Record Review External record reviewed: Inpatient record Prescription Management I considered prescription management with: Antibiotic (zpak) and Other (prednisone) Social Determinants Patient?s care significantly limited by Social Determinants of Health including: Other Social Determinant of Health Critical Care Time Critical Care Time Critical Care Time: No Discharge Plan Discharge Clinical Impression: Bronchitis, Upper respiratory infection Patient Disposition: Home, Self-Care Instructions: Upper Respiratory Infection (ED), Acute Bronchitis (ED) Additional Instructions: Your blood work today is reassuring. You tested negative for covid, flu, rsv. Your chest xray does not demonstrate pneumonia. Your presentation is consistent with bronchitis. Azithromycin as an antibiotic that has been sent to your pharmacy for treatment. Take this as prescribed over the next 5 days. Guaifenesin cough medicine has been sent to your pharmacy for you to take as needed for cough. This will help expel any phlegm. Prednisone has been sent to your pharmacy for you to take over the next few days to help with your breathing. If you have diabetes, please monitor your blood sugar closely at home as prednisone can elevate blood sugar. Follow up with your primary care provider this week. Return with new or worsening symptoms. In the case of an emergency call 911. Prescriptions: New azithromycin 250 mg tablet See Rx Instructions .ROUTE .COMPLEX Qty: 6 0RF Rx Instructions: For 250 mg dose pack: take 500 mg today (day 1), then 250 mg for 4 days (days 2-5) guaifenesin 200 mg tablet 200 mg PO TID PRN (Reason: cough) Qty: 10 0RF prednisone 20 mg tablet 40 mg PO DAILY 3 Days Qty: 6 0RF No Action lisinopril 20 mg tablet 20 mg PO DAILY polymyxin B sulf-trimethoprim 10,000 unit- 1 mg/mL drops 1 drp ophthalmic (eye) Q4H 5 Days Qty: 10 0RF Rx Instructions: while awake; do not exceed 5 doses in 24 hours pravastatin 40 mg tablet 40 mg PO DAILY lisinopril 10 mg tablet 10 mg PO DAILY fluticasone propionate 50 mcg/actuation spray,suspension 1 spray intranasal BID Qty: 16 0RF Rx Instructions: administer into each nostril sennosides [senna] 8.6 mg tablet 17.2 mg PO BEDTIME PRN (Reason: constipation) 30 Days Qty: 60 0RF Referrals: Karina Minor MD [Primary Care Provider] - Interventions: ED Discharge Assessment Last Done: 10/24/24 14:07 Discharge Date/Time: 10/24/24 14:10 Print Language: Hungarian
[2024-10-24 11:06] VITALS: BP 157/70; PULSE 100; RESP 18; TEMP 37; O2SAT 96; BMI 44.9
[2024-10-24 11:27] LABS: MANUAL DIFF FLAG NO
[2024-10-24 11:33] LABS: Basophils Percent Auto 0.5 % (0-2); Eosinophils Absolute Auto 0.1 X10*3/uL (0.0-0.4); Eosinophils Percent Auto 1.5 % (0-4); Hematocrit 40.4 % (37.0-47.0); Hemoglobin 13.2 g/dl (12.0-16.0); Imm Gran Abs Auto 0.02 X10*3/uL (0.00-0.03); Imm Gran Pct Auto 0.2 % (0.0-0.4); Lymphocytes Absolute Auto 2.4 X10*3/uL (1.2-4.9); Lymphocytes Percent Auto 29.6 % (20-40); Mean Corpuscular HGB Conc 32.7 g/dl (31.0-35.0); Mean Corpuscular Hemoglobin 30.3 pg (27.0-33.0); Mean Corpuscular Volume 92.7 fL (80.0-98.0); Mean Platelet Volume 9.7 fL (9.4-12.3); Monocytes Absolute Auto 0.9 X10*3/uL (0.1-1.2); Monocytes Percent Auto 11.1 % (2-11); Neutrophils Absolute Auto 4.7 x10*3/uL (2.0-8.3); Neutrophils Percent Auto 57.1 % (45-73); Platelet Count 300 X10*3/uL (160-400); Red Blood Count 4.36 X10*6/uL (4.20-5.50); Red Cell Distribution Width 13.3 % (11.0-16.0); White Blood Count 8.2 X10*3/uL (4.8-10.8)
[2024-10-24 11:45] LABS: Alanine Aminotransferase 41 U/L (0-31); Alkaline Phosphatase 90 U/L (39-117); Anion Gap 13 (12-20); Aspartate Amino Transferase 27 U/L (5-31); Bilirubin Total 0.3 mg/dL (0.0-1.0); Blood Urea Nitrogen 16 mg/dL (9-16); Calcium 9.2 mg/dL (8.4-10.2); Carbon Dioxide 21 mmol/L (22-29); Chloride 107 mmol/L (96-108); Creatinine Clr Calc Pharmacy 118.1; Estimated Glomerular Filt Rate > 60; Glucose Random 100 mg/dL (60-115); Potassium 4.1 mmol/L (3.3-5.1); Sodium 137 mmol/L (135-145); Total Protein 7.3 g/dL (6.5-8.0)
[2024-10-24 12:08] LABS: Influenza A PCR NEGATIVE (Negative); Influenza B PCR NEGATIVE (Negative); Resp Syncy Virus RNA Qual PCR NEGATIVE (Negative); SARS COV2 PCR INHOUSE NEGATIVE (Negative)
[2024-10-24 12:42] VITALS: PULSE 92; RESP 19; O2SAT 98
[2024-10-24] MEDS: Albuterol Sulfate (0.083%) 2.5 MG/3 ML VIAL.NEB INHALE (12:42)
[2024-10-24 13:23] LABS: B Type Natriuretic Peptide < 10 pg/mL (<100)
[2024-10-24 14:04] VITALS: BP 142/73; PULSE 98; RESP 18; TEMP 36.8; O2SAT 95
--- NOTE | 2024-10-24 14:04 | PC.NURSE ---
pt a&ox3, vss, pt had updrafts by RT, rr equal/non labored, in/ex wheezing, with cough. pt denies pain/discomfort, will discharge home with scripts.
[2024-10-24 14:07] VITALS: BP 142/73; PULSE 98; RESP 18; TEMP 36.8; O2SAT 95
== END 2024-10-24 14:10 | disposition home or self-care (01) ==
PROVIDERS: Physician Assistant Medical; Registered Nurse Emergency; Emergency Provider Emergency Medicine; PCP Student in an Organized Health Care Education/Training Program
DX: J40 Bronchitis, not specified as acute or chronic (principal); R05.9 Cough, unspecified; J06.9 Acute upper respiratory infection, unspecified; R09.81 Nasal congestion; Z79.899 Other long term (current) drug therapy; Z03.818 Encounter for observation for suspected exposure to other biological agents ruled out
CPT/HCPCS: 0241U; 71046; 80053; 83880; 85025; 94640; 99284

== ENCOUNTER → 2024-10-24 11:08 | Outpatient (BNV) | payer OTHER, SELFPAY | PROVIDERS: PCP Student in an Organized Health Care Education/Training Program; Visit Provider Radiology Diagnostic Radiology | DX: R07.9 Chest pain, unspecified (principal) | CPT/HCPCS: 71046 ==

== ENCOUNTER 2024-11-03 17:39 | Outpatient (REF) | payer OTHER, SELFPAY ==
[2024-11-04 04:05] LABS: CT PCR NOT DETECTED (Not Detect.); NG PCR NOT DETECTED (Not Detect.)
[2024-11-04 10:11] LABS: Bacterial Vaginosis PCR POSITIVE (Negative); Candida Group PCR DETECTED (Not Detect); Candida glab krusei PCR NOT DETECTED (Not Detect); Trichomonas vaginalis PCR NOT DETECTED (Not Detect)
== END 2024-11-03 17:40 | disposition home or self-care (01) ==
LOC: HO.CHCLNP 17:39
PROVIDERS: Visit Provider Registered Nurse
DX: R39.9 Unspecified symptoms and signs involving the genitourinary system (principal); N89.8 Other specified noninflammatory disorders of vagina
CPT/HCPCS: 81515; 87086; 87491; 87591

== ENCOUNTER 2024-11-07 12:36 | Outpatient (AMB) | payer OTHER, SELFPAY ==
[2024-11-07 12:54] VITALS: BP 124/80; PULSE 100; O2SAT 99; BMI 45.8
--- NOTE | 2024-11-07 12:54 | AM.OFFWIN_ITS ---
Intake Vital Signs 11/07/24 12:54 Height 5 ft 5 in Weight 275 lb BMI 45.8 BP 124/80 Blood Pressure Location Lt brachial Position Sitting Pulse 100 Pulse Source Pulse Oximeter Pulse Oximetry (%) 99 Oxygen Delivery Method Room Air Intake Visit Reasons: EP extreme bloating, pain on LT side Intake Note: Pt is here today for a walk in visit. Pt c/o bloating and L abdominal pain. Patient Tobacco Use Status: Never used Tobacco Allergies seafood Allergy (Verified 11/07/24 12:57) Itching HPI HPI Comments History of Present Illness Details History of Present Illness - The patient is a 69-year-old female pr esenting with constipation and abdominal discomfort. - She was recently treated for bronchiti s with antibiotics and prednisone, which she thinks exacerbated her constipation. - She reports having IBS, mainly with di arrhea, adding complexity to managing her bowel habits. - A recent diagnosis of bacterial vagino sis was made, and she is in the process of receiving oral metronidazole after not tolerating the cream. 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 - Past medical history includes a clear colonoscopy (per pt, unable to find records from her [place]) and mild colonic diverticulosis noted on a recent CT scan. - She maintains adequate fluid intake, i ncluding hydration with Gatorade, to support bowel function. -She states she feels like her respirato ry issues are improving Physical Exam General: Cooperative, healthy appearing, comfortable, no acute distress and well developed Orientation: Patient oriented x3 Limitations: No limitations Head: Normal to inspection Ears: Hearing grossly normal bilaterally Nose: Normal external nose present Face and sinus: Normal facial exam Eyes: Appearance normal, both eyes and all related structures Neck: Normal visual inspection and Yes full ROM Respiratory: Normal respiratory effort and able to speak in complete sentences. Clear to auscultation bilaterally Cardiovascular: Heart rate 100 bpm, regular rate and rhythm. Normal S1 and S2 GI: normal BS, soft, slightly TTP in LLQ and RLQ Skin: No rashes or lesions noted Neuro: Patient oriented x3 Extremities: Normal to inspection PFSH Medical History Dysuria Surgical History Hx of colonoscopy Social History Alcohol intake: former Patient Tobacco Use Status: Never used Tobacco Review of Systems Const All systems reviewed & are unremarkable except as noted in HPI and below Physical Exam Vital Signs: Last Vital Signs Pulse 107 H 11/07/24 12:54 BP 124/80 11/07/24 12:54 Pulse Ox 99 11/07/24 12:54 Oxygen Delivery Method Room Air 11/07/24 12:54 BMI result Body Mass Index 45.8 Assessment & Plan Assessment & Plan (1) Chronic idiopathic constipation: Code(s): K59.04 - Chronic idiopathic constipation Plan: VSS, pt well appearing, PE remarkable only for slightly ttp in rlq and llq. To address constipation and abdominal discomfort, she should treatment with oral metronidazole as prescribed by [facility] to treat her bacterial vaginosis, which may help relieve constipation as abx can give you diarrhea. If constipation persists, recommend using laxatives such as Dulcolax or Senna, and if needed, MiraLax. Monitor response and ensure hydration with fluids like water and Gatorade. Monitor pain and bloating, seeking emergency care if fever or increased pain develops. For IBS, encourage hydration and dietary adjustments. A repeated chest X-ray is not needed unless respiratory symptoms worsen. Patient was informed and verbally consented to the use of an ambient scribe for clinic note documentation during this visit. Coding Level of Care Code New Pt Level 4 (13277) Diagnoses Chronic idiopathic constipation K59.04
== END 2024-11-07 14:11 | disposition home or self-care (01) ==
PROVIDERS: PCP Student in an Organized Health Care Education/Training Program; Visit Provider Physician Assistant
DX: K59.04 Chronic idiopathic constipation (principal)

== ENCOUNTER → 2024-11-07 12:36 | Outpatient (BNVA) | payer OTHER, SELFPAY | PROVIDERS: PCP Student in an Organized Health Care Education/Training Program; Visit Provider Physician Assistant | DX: K59.04 Chronic idiopathic constipation (principal) | CPT/HCPCS: 99202 ==

== ENCOUNTER 2024-11-08 10:33 | Emergency (ER) | payer OTHER, SELFPAY ==
--- NOTE | ~2024-11-08 | XR_ITS ---
EXAMINATION: XR CHEST CLINICAL INFORMATION: shortness of breath COMPARISON: 10/24/2024. TECHNIQUE: 2 views of the chest were obtained. FINDINGS: The cardiac, hilar, and mediastinal contours are normal. The lungs are clear bilaterally. There is no pneumothorax or pleural effusion. There is no focal osseous or soft tissue abnormality. XR/XR chest 2V IMPRESSION: Normal chest. Electronically signed by: Sukumar Desai MD 11/08/2024 12:25 PM [facility] [place]
--- NOTE | ~2024-11-08 | XR_ITS ---
EXAMINATION: XR ABDOMEN KUB CLINICAL INDICATION: pain ,? Constipation. COMPARISON: Correlation made with CT abdomen and pelvis 11/06/2023. TECHNIQUE: AP view of the abdomen. FINDINGS: There is a normal bowel gas pattern present. There is no focally dilated loop. There is a mild amount of fecal residue in the right and left colon. There are no abnormal soft tissue calcifications. No indirect evidence of free intraperitoneal air. Mary's lobe of the liver is suspected versus hepatomegaly. No suspicious osseous abnormality. Mild degenerative changes in the spine and bilateral hip joints. Lung bases appear clear allowing for examination confines. XR/XR KUB IMPRESSION: 1. No acute findings in the abdomen/pelvis. Mild constipation is evident. Electronically signed by: Sukumar Desai MD 11/08/2024 12:28 PM [facility] [place]
[2024-11-08 11:24] VITALS: BP 148/64; PULSE 85; RESP 18; TEMP 36.6; O2SAT 98; BMI 43.6
--- NOTE | 2024-11-08 11:28 | ED_ITS ---
HPI - General Adult General Chief complaint: Abdominal Pain Stated complaint: Bloated Abd Pain Time Seen by Provider: 11/08/24 15:44 Source: patient Mode of arrival: ambulatory Limitations: no limitations History of Present Illness ED Provider: Madelaine Williamson PA-C HPI narrative: 59 y/o female with PMHx significant for IBS, bronchitis, HLD, HTN presents with non-radiating LLQ pain and functional constipation. States functional constipation x1-2 weeks, LLQ pain began a few days ago. Describes stool as dark and hard, no blood visualized. Notes one episode of vomiting this morning, describes as vomit with no blood. States she has been on antibiotics & steroids recently for bronchitis, currently still taking metronidazole for bacterial vaginosis. Denies fever/chills, chest pain, SOB, difficult/painful urination, or incontinence. Relieving factors: none Exacerbating factors: none Associated symptoms: nausea/vomiting Treatments prior to arrival: none Related Data Home Medications ?Medication ?Instructions ?Recorded ?Confirmed lisinopril 10 mg tablet 10 mg PO DAILY 10/02/22 10/02/22 pravastatin 40 mg tablet 40 mg PO DAILY 10/02/22 10/02/22 lisinopril 20 mg tablet 20 mg PO DAILY 07/03/24 Previous Rx's ?Medication ?Instructions ?Recorded sennosides 8.6 mg tablet (senna) 17.2 mg (2 x 8.6 mg) PO BEDTIME 02/15/24 PRN constipation 30 days #60 tabs polymyxin B sulfate 10,000 1 drp ophthalmic (eye) Q4H 5 days 07/03/24 unit-trimethoprim 1 mg/mL eye drops #10 mL fluticasone propionate 50 1 spray intranasal BID #16 grams 10/19/24 mcg/actuation nasal spray,suspension azithromycin 250 mg tablet See Rx Instructions PO .COMPLEX #6 10/24/24 tabs Allergies Allergy/AdvReac Type Severity Reaction Status Date / Time seafood Allergy Itching Verified 11/08/24 11:28 Review of Systems 2 Constitutional: Constitutional: Reports no additional constitutional complaints, Denies chills, Denies fever(s) and Denies night sweats Eyes: Eyes: Reports no additional eye complaints, Denies blurry vision, Denies change in vision, Denies diplopia, Denies eye discharge, Denies loss of vision and Denies eye pain ENT: Denies dizziness Cardiovascular: Cardiovascular: Reports no additional cardiovascular complaints, Denies chest pain, Denies lightheadedness, Denies Loss of Consciousness and Denies dyspnea Respiratory: Respiratory: Reports no additional respiratory complaints and Denies dyspnea Gastrointestinal: Gastrointestinal: Reports no additional gastrointestinal complaints, Reports abdominal pain, Denies melena, Denies hematochezia, Denies change in bowel habits, Denies change in stool character and Reports constipation Genitourinary: Genitourinary: Denies hematuria, Denies urinary frequency, Denies dysuria, Denies urinary incontinence, Denies urinary hesitancy and Denies urinary urgency Musculoskeletal: Musculoskeletal: Reports no additional musculoskeletal complaints, Denies numbness and Denies tingling Neurologic: Denies dizziness, Denies loss of vision, Denies numbness and Denies tingling Psychiatric: Psychiatric: Reports no additional psychiatric complaints Endocrine: Endocrine: Reports no additional endocrine complaints Hematologic/Lymphatic: Hematologic/Lymphatic: Reports no additional hematologic/lymphatic complaints Allergic/Immunologic: Allergic/Immunologic: Reports no additional allergic/immunologic complaints PMFSH Past Medical History Attestation statement: The following information was validated with the patient. Source: old records reviewed and nursing notes reviewed Medical History Dysuria Surgical History Hx of colonoscopy Social History Social History Alcohol intake: former Patient Tobacco Use Status: Never used Tobacco Advance Directives: No Advance Directives Information Provided: No Do you have a plan to hurt others: No Plan Physical Exam ED Vital Signs: Vital Signs - 24 hr 11/08/24 11:24 Temperature 97.9 F Pulse Rate 85 Respiratory Rate 18 Blood Pressure 148/64 H Pulse Oximetry 98 Oxygen Delivery Method Room Air BMI result Body Mass Index 43.6 Const General: cooperative, no acute distress, alert and awake Nutritional Appearance: well nourished Orientation/consciousness: patient oriented x3 Limitations: no limitations HENMT Head: Yes normal to inspection and Yes atraumatic Ears: hearing grossly normal bilaterally and external ears normal General nose exam: Normal external nose present, no nasal discharge noted and no epistaxis Face and sinus: Yes normal facial exam, No abrasion and No laceration Mouth: Normal oral and palatal mucosa present, no drooling and no muffled voice Eyes General: appearance normal, both eyes and all related structures Periorbital: periorbital findings normal Eyelids: Yes eyelids normal Conjunctivae: conjunctivae normal Pupils: Equal, round and reactive pupils present EOM: EOMs intact bilaterally Neck Neck: Yes normal visual inspection, Yes full ROM and Yes no lymphadenopathy Chest Chest palpation & inspection: normal inspection of the chest Resp Effort & Inspection: normal respiratory effort and able to speak in complete sentences GI Inspection: Yes normal to inspection Palpation (GI): Soft to palpation, not firm, nontender and no guarding Neuro General: patient oriented x3 and moves all extremities Cranial nerves: Yes Equal, round and reactive pupils present Cognition (Neuro): normal cognition Extrem General: Yes normal to inspection, Yes full ROM and Yes capillary refill normal Psych Appearance: grossly normal Mental Status: mental status grossly normal Affect: normal affect Attitude: cooperative Thought process: Normal thought process present Thought content: Normal thought content present Insight: Good insight present (Psych) Course Course Course Narrative: RME, this is a rapid medical exam performed by Vivek Champion please refer to primary provider for complete H&P- 59-year-old female presents for evaluation of abdominal pain and constipation. She has a history of chronic constipation. She reports left-sided abdominal pain. She vomited this morning. She also is requesting a repeat chest x-ray as she was treated for bronchitis 2 weeks ago. Plan for labs, urinalysis and x-ray Medical Decision Making Medical Decision Making MDM Narrative: Patient is a 59 year old assigned female at with a history of constipation, IBS, HLD, and HTN presenting to the emergency department today with abdominal pain. Patient's physical exam was unremarkable. Patient's blood work was unremarkable. Patient's urine from 11/06/2024 showed no acute process. Patient's chest x-ray showed no acute process. Patient's KUB showed mild constipation. I explained my physical exam findings as well as all test results to the patient. I answered all questions asked by the patient. I stressed the importance of the patient taking her medication as directed (either prescribed or as the over the counter packaging recommends). I stressed the importance of the patient following up with her primary care provider and a GI specialist. I stressed the importance of the patient returning to the emergency department immediately if her symptoms were to worsen or if she were to develop any dizziness, shortness of breath, difficulty breathing, chest pain, blurry vision, loss of vision, nausea, vomiting, abdominal pain, fever, chills, back pain, or any other complaints. Patient verbalized agreement and understanding with this treatment plan and discharge. Differential Diagnosis Differential Diagnoses: The differential diagnosis associated with the presentation includes Constipation Abdominal pain Admission/Observation Consideration of admission/observation: Escalation of care including admission/observation considered Patient would have been admitted to the hospital had her work up had any findings where hospital admission was appropriate and her clinical presentation warranted hospital admission. Lab Data [facility] Lab Attestation statement: I reviewed the patient's lab results. My interpretation of these results are in the [facility] Rationale portion of this note. 11/08/24 12:39 11/08/24 12:39 Labs: Lab Results 11/08/24 Range/Units 12:39 WBC 9.5 (4.8-10.8) X10*3/uL RBC 4.30 (4.20-5.50) X10*6/uL Hgb 13.2 (12.0-16.0) g/dl Hct 40.1 (37.0-47.0) % MCV 93.3 (80.0-98.0) fL MCH 30.7 (27.0-33.0) pg MCHC 32.9 (31.0-35.0) g/dl RDW 13.2 (11.0-16.0) % Plt Count 323 (160-400) X10*3/uL MPV 9.7 (9.4-12.3) fL Immature Gran % (Auto) 0.4 (0.0-0.4) % Neut % (Auto) 60.7 (45-73) % Lymph % (Auto) 27.8 (20-40) % Gilliam % (Auto) 8.3 (2-11) % Eos % (Auto) 2.1 (0-4) % Baso % (Auto) 0.7 (0-2) % Lymph # (Auto) 2.7 (1.2-4.9) X10*3/uL Gilliam # (Auto) 0.8 (0.1-1.2) X10*3/uL Eos # (Auto) 0.2 (0.0-0.4) X10*3/uL Baso # (Auto) 0.1 (0.0-0.2) X10*3/uL Abs Immat Gran (auto) 0.04 H (0.00-0.03) X10*3/uL Absolute Neuts (auto) 5.8 (2.0-8.3) x10*3/uL Absolute Nucleated RBC 0.000 (0.0-0.012) X10*3/uL Nucleated RBC % (auto) 0.0 (0.0-0.2) /100WBC Sodium 138 (135-145) mmol/L Potassium 4.2 (3.3-5.1) mmol/L Chloride 107 (96-108) mmol/L Carbon Dioxide 25 (22-29) mmol/L Anion Gap 10 L (12-20) BUN 10 (9-16) mg/dL Creatinine 0.67 (0.5-1.4) mg/dL Estim Creat Clear Calc 123.7 Estimated GFR > 60 Random Glucose 102 (60-115) mg/dL Calcium 9.3 (8.4-10.2) mg/dL Total Bilirubin 0.3 (0.0-1.0) mg/dL AST 16 (5-31) U/L ALT 17 (0-31) U/L Alkaline Phosphatase 94 (39-117) U/L Total Protein 7.2 (6.5-8.0) g/dL Albumin 3.9 (3.5-5.0) g/dL Lipase 12 (8-78) U/L Independent Interpretation I performed an independent interpretation of an: Plain X-Ray Interpretation: My interpretation is in agreement with the radiologist's impression of these imaging studies. L EXAMINATION: XR ABDOMEN KUB CLINICAL INDICATION: pain ,? Constipation. COMPARISON: Correlation made with CT abdomen and pelvis 11/06/2023. TECHNIQUE: AP view of the abdomen. FINDINGS: There is a normal bowel gas pattern present. There is no focally dilated loop. There is a mild amount of fecal residue in the right and left colon. There are no abnormal soft tissue calcifications. No indirect evidence of free intraperitoneal air. Mary's lobe of the liver is suspected versus hepatomegaly. No suspicious osseous abnormality. Mild degenerative changes in the spine and bilateral hip joints. Lung bases appear clear allowing for examination confines. XR/XR KUB IMPRESSION: 1. No acute findings in the abdomen/pelvis. Mild constipation is evident. Electronically signed by: Sukumar Desai MD 11/08/2024 12:28 PM EST RP Dictated By: Sukumar Desai MD Signed By: Electronically signed by Sukumar Desai MD 11/08/24 1228 EXAMINATION: XR CHEST CLINICAL INFORMATION: shortness of breath COMPARISON: 10/24/2024. TECHNIQUE: 2 views of the chest were obtained. FINDINGS: The cardiac, hilar, and mediastinal contours are normal. The lungs are clear bilaterally. There is no pneumothorax or pleural effusion. There is no focal osseous or soft tissue abnormality. XR/XR chest 2V IMPRESSION: Normal chest. Electronically signed by: Sukumar Desai MD 11/08/2024 12:25 PM EST RP Dictated By: Sukumar Desai MD Signed By: Electronically signed by Sukumar Desai MD 11/08/24 1225 Radiology Impression Discussion of test interpretation with radiology: I have reviewed the radiologist's reading. Tests considered The following testing was considered but not selected: I considered obtaining a CT scan of the abdomen/pelvis however, the patient's current clinical presentation and work up did not warrant this. I discussed this with the patient who verbalized agreement and understanding. Discharge Plan Discharge Clinical Impression: Constipation Patient Disposition: Home, Self-Care Instructions: Constipation (DC) Additional Instructions: Follow up with your primary care provider and a GI specialist. Return to the emergency department immediately if your symptoms worsen or if you develop any dizziness, shortness of breath, difficulty breathing, chest pain, blurry vision, loss of vision, nausea, vomiting, abdominal pain, fever, chills, back pain, or any other complaints. Prescriptions: No Action azithromycin 250 mg tablet See Rx Instructions .ROUTE .COMPLEX Qty: 6 0RF Rx Instructions: For 250 mg dose pack: take 500 mg today (day 1), then 250 mg for 4 days (days 2-5) lisinopril 20 mg tablet 20 mg PO DAILY polymyxin B sulf-trimethoprim 10,000 unit- 1 mg/mL drops 1 drp ophthalmic (eye) Q4H 5 Days Qty: 10 0RF Rx Instructions: while awake; do not exceed 5 doses in 24 hours pravastatin 40 mg tablet 40 mg PO DAILY lisinopril 10 mg tablet 10 mg PO DAILY fluticasone propionate 50 mcg/actuation spray,suspension 1 spray intranasal BID Qty: 16 0RF Rx Instructions: administer into each nostril sennosides [senna] 8.6 mg tablet 17.2 mg PO BEDTIME PRN (Reason: constipation) 30 Days Qty: 60 0RF Referrals: [facility] [Provider Group] (Call to establish and follow up with a GI specialist. ) Karina Minor MD [Primary Care Provider] - Interventions: ED Discharge Assessment Last Done: 11/08/24 17:20 Discharge Date/Time: 11/08/24 17:20 Print Language: Divehi
[2024-11-08 12:44] LABS: MANUAL DIFF FLAG NO
[2024-11-08 12:48] LABS: Basophils Absolute Auto 0.1 X10*3/uL (0.0-0.2); Basophils Percent Auto 0.7 % (0-2); Eosinophils Absolute Auto 0.2 X10*3/uL (0.0-0.4); Eosinophils Percent Auto 2.1 % (0-4); Hematocrit 40.1 % (37.0-47.0); Hemoglobin 13.2 g/dl (12.0-16.0); Imm Gran Abs Auto 0.04 X10*3/uL (0.00-0.03); Imm Gran Pct Auto 0.4 % (0.0-0.4); Lymphocytes Absolute Auto 2.7 X10*3/uL (1.2-4.9); Lymphocytes Percent Auto 27.8 % (20-40); Mean Corpuscular HGB Conc 32.9 g/dl (31.0-35.0); Mean Corpuscular Hemoglobin 30.7 pg (27.0-33.0); Mean Corpuscular Volume 93.3 fL (80.0-98.0); Mean Platelet Volume 9.7 fL (9.4-12.3); Monocytes Absolute Auto 0.8 X10*3/uL (0.1-1.2); Monocytes Percent Auto 8.3 % (2-11); Neutrophils Absolute Auto 5.8 x10*3/uL (2.0-8.3); Neutrophils Percent Auto 60.7 % (45-73); Platelet Count 323 X10*3/uL (160-400); Red Cell Distribution Width 13.2 % (11.0-16.0); White Blood Count 9.5 X10*3/uL (4.8-10.8)
[2024-11-08 12:59] LABS: Alanine Aminotransferase 17 U/L (0-31); Albumin Level 3.9 g/dL (3.5-5.0); Alkaline Phosphatase 94 U/L (39-117); Anion Gap 10 (12-20); Aspartate Amino Transferase 16 U/L (5-31); Bilirubin Total 0.3 mg/dL (0.0-1.0); Blood Urea Nitrogen 10 mg/dL (9-16); Calcium 9.3 mg/dL (8.4-10.2); Carbon Dioxide 25 mmol/L (22-29); Chloride 107 mmol/L (96-108); Creatinine Clr Calc Pharmacy 123.7; Estimated Glomerular Filt Rate > 60; Glucose Random 102 mg/dL (60-115); Lipase 12 U/L (8-78); Potassium 4.2 mmol/L (3.3-5.1); Sodium 138 mmol/L (135-145); Total Protein 7.2 g/dL (6.5-8.0)
[2024-11-08 17:20] VITALS: BP 148/64; PULSE 85; RESP 18; TEMP 36.6; O2SAT 98
== END 2024-11-08 17:20 | disposition home or self-care (01) ==
PROVIDERS: Physician Assistant; Emergency Provider Student in an Organized Health Care Education/Training Program; PCP Student in an Organized Health Care Education/Training Program
DX: K59.00 Constipation, unspecified (principal); R10.2 Pelvic and perineal pain; R10.32 Left lower quadrant pain; R11.2 Nausea with vomiting, unspecified; R06.02 Shortness of breath; Z79.899 Other long term (current) drug therapy
CPT/HCPCS: 36415; 71046; 74018; 80053; 83690; 85025; 99283

== ENCOUNTER → 2024-11-08 11:29 | Outpatient (BNV) | payer OTHER, SELFPAY | PROVIDERS: PCP Student in an Organized Health Care Education/Training Program; Visit Provider Radiology Diagnostic Radiology | DX: R06.02 Shortness of breath (principal); K59.00 Constipation, unspecified | CPT/HCPCS: 71046; 74018 ==

== ENCOUNTER 2025-01-15 10:35 | Outpatient (AMB) | payer OTHER, SELFPAY ==
--- NOTE | 2025-01-15 10:40 | A.OFFVIS_ITS ---
Vital Signs 01/15/25 10:45 01/15/25 10:58 Height 5 ft 6 in Weight 266 lb 12.149 oz BMI 43.1 BP 89/64 L 112/67 Blood Pressure Location Lt radial Lt brachial Position Sitting Sitting Pulse 96 Intake Visit Reasons: stomach pain, cic Intake Note: Radha presents in the office as a follow up for stomach pains and CIC. CC: She states that she is still having some pains in the stomach. She was blocked for a couple weeks with constipation and states she was so bad that she had nausea and vomiting. Allergies seafood Allergy (Verified 11/08/24 11:28) Itching HPI Comments Details: This is a 58y.o F with PMH of HTN, IBS, cone-hayes dystrophy who is here for worsening constipation. Reports that used to go to have BMs that were regular and soft but for the past few months has been noticing BMs are now hard and only goes 3 times a week. Has to take stool softener or suppositories to help which does help very well. Diet is poor in fiber (pop tart, mcdonalds) - fluid intake is around 30-40oz per day. Lifestyle is sedentary. Had a colo when she turned 52 - done at ?[facility]. Recall 10 years per pt's report. 01/15/25: Here for follow up. Was lost to follow up last year. BM frequency is better goes 4-5 times a week. Sometimes takes miralax which helped. Takes glycerin suppositories for impaction. Main concern is intermitte nt blood per rectum which is new. Most recent episode last month. Thinks related to straining. Also has feeling of incomplete evacuation with this. Not on consistent regimen for consiipation. PRN miralax as above or takes sugar free gummies to help her go. has also been having frequent URIs. Was diagnosed with bronchitis recently and given oulse steroids. Pt without any PFTs on file. [facility] Medical History Dysuria Surgical History Hx of colonoscopy Social History Alcohol intake: former Patient Tobacco Use Status: Never used Tobacco Review of Systems Const All systems reviewed & are unremarkable except as noted in HPI and below Physical Exam Vital Signs: Last Vital Signs Pulse 96 01/15/25 10:58 BP 112/67 01/15/25 10:58 BMI result Body Mass Index 43.1 NAD, with obesity Impaired vision, uses cane abd soft, nontender, nondistended mild non pitting AMA Assessment & Plan Assessment & Plan (1) Chronic idiopathic constipation: Code(s): K59.04 - Chronic idiopathic constipation Category: Medical (2) Bright red rectal bleeding: Code(s): K62.5 - Hemorrhage of anus and rectum Category: Medical (3) Dyspnea: Code(s): R06.00 - Dyspnea, unspecified Category: Medical Plan Overall assessment consistent with CIC, likely due to lack of dietary fiber, hydration and activity. Rectal bleeding likely 2/2 hemorrhoids. No anemia noted on labs. However, given recent worsening of constipation - pt describes increased need to strain and feeling of incomplete evacuation will proceed with diagnostic colo. Given recent resp issues, PFTs ordered. Plan: -Cont fiber -elevated legs while having bowel movement -add senna 2 tablets at bedtime or in the morning 30-40 minutes before breakfast -Daily [facility] to be booked. Pt requests miralax/gatorade prep. Handout given as well - pt has a camera based device that can read out instructions to her. -This will be scheduled after PFTs are done and no actionable finding on those Follow up after colo. Orders: Orders PFT pulmonary function test Today R06.00 - Dyspnea, unspecified Medications: New polyethylene glycol 3350 (Miralax) For colonoscopy prep. Mix with 64oz gatorade and drink a cup every 10 minutes 238 grams PO ONCE 238 grams 0RF Coding Level of Care Code Est Pt Level 4 (62353) Diagnoses Chronic idiopathic constipation K59.04 Bright red rectal bleeding K62.5 Dyspnea R06.00
[2025-01-15 10:45] VITALS: BP 89/64; BMI 43.1
[2025-01-15 10:58] VITALS: BP 112/67; PULSE 96
== END 2025-01-15 11:33 | disposition home or self-care (01) ==
PROVIDERS: PCP Student in an Organized Health Care Education/Training Program; Visit Provider Internal Medicine
DX: K59.04 Chronic idiopathic constipation (principal); K62.5 Hemorrhage of anus and rectum; R06.00 Dyspnea, unspecified
CPT/HCPCS: 99214

== ENCOUNTER → 2025-01-15 10:35 | Outpatient (BNVA) | payer OTHER, SELFPAY | PROVIDERS: PCP Student in an Organized Health Care Education/Training Program; Visit Provider Internal Medicine | DX: R10.9 Unspecified abdominal pain (principal); I10 Essential (primary) hypertension; K58.1 Irritable bowel syndrome with constipation; K59.04 Chronic idiopathic constipation; K62.5 Hemorrhage of anus and rectum; R06.00 Dyspnea, unspecified | CPT/HCPCS: 99212 ==

== ENCOUNTER 2025-03-19 10:16 | Emergency (ER) | payer OTHER, SELFPAY ==
--- NOTE | ~2025-03-19 | XR_ITS ---
CLINICAL HISTORY: reported constipation 1 view abdomen Comparison: CR/SR - XR KUB - 11/08/24 12:22 EST Findings: No abnormal bowel dilation to suggest obstruction. No abnormal calcifications. Degenerative change of the spine and hips. IMPRESSION: No evidence of bowel obstruction. Mild colonic stool burden. This document has been electronically signed by: Cameron Forrest DO on 03/19/2025 12:05:37
[2025-03-19 10:22] VITALS: BP 122/62; PULSE 92; RESP 19; TEMP 36.6; O2SAT 98; BMI 42.9
--- NOTE | 2025-03-19 11:08 | PC.NURSE ---
Pt states that she had lose stool yesterday but also needed to get some out of there . Itsn't clear if she self-disimpacted or used OTC med. States she's already tried fiber meds. Reports that her abd is hard . Appears soft, non-distended.
--- NOTE | 2025-03-19 11:32 | ED_ITS ---
HPI - General Adult General Chief complaint: Abdominal Pain Stated complaint: Stomach Digestive Issues Time Seen by Provider: 03/19/25 11:32 History of Present Illness ED Provider: Nancy DE JESUS narrative: The patient is a 59-year-old woman who comes to the emergency room complaining that she does not feel she has been able to have a bowel movement for a week or more. She says that she has been having loose stools but has not had a good solid formed bowel movement for some time. She says that she has chronic problems with bowel habits. She says she has a history of irritable bowel syndrome. She comes today because she is concerned that she is impacted. No fever, sweats, chills. She says she vomited a few weeks ago but no recent vomiting. No chest pain or shortness of breath. Related Data Home Medications ?Medication ?Instructions ?Recorded ?Confirmed pravastatin 40 mg tablet 40 mg PO DAILY 10/02/22 10/02/22 lisinopril 20 mg tablet 20 mg PO DAILY 07/03/24 Previous Rx's ?Medication ?Instructions ?Recorded sennosides 8.6 mg tablet (senna) 17.2 mg (2 x 8.6 mg) PO BEDTIME 02/15/24 PRN constipation 30 days #60 tabs polymyxin B sulfate 10,000 1 drp ophthalmic (eye) Q4H 5 days 07/03/24 unit-trimethoprim 1 mg/mL eye drops #10 mL fluticasone propionate 50 1 spray intranasal BID #16 grams 10/19/24 mcg/actuation nasal spray,suspension polyethylene glycol 3350 17 238 g PO ONCE #238 grams 01/15/25 gram/dose oral powder (Miralax) polyethylene glycol 3350 17 17 g PO DAILY #238 grams 03/19/25 gram/dose oral powder (ClearLax) Allergies Allergy/AdvReac Type Severity Reaction Status Date / Time seafood Allergy Itching Verified 03/19/25 10:25 Review of Systems Review of Systems: Yes all other systems are reviewed and are negative PMFSH Past Medical History Medical History Dysuria Surgical History Hx of colonoscopy Social History Social History Alcohol intake: former Patient Tobacco Use Status: Never used Tobacco Advance Directives: No Advance Directives Information Provided: Yes Do you have a plan to hurt others: No Plan Physical Exam ED Vital Signs: Vital Signs - 24 hr 03/19/25 10:22 03/19/25 12:24 Temperature 98 F 98 F Pulse Rate 92 92 Respiratory Rate 19 19 Blood Pressure 122/62 122/62 Pulse Oximetry 98 98 Oxygen Delivery Method Room Air Room Air BMI result Body Mass Index 42.9 Const Other: The patient is awake and alert. She does not seem in acute distress or seem obviously acutely ill. She does not seem in obvious discomfort. HENMT Other: Face is symmetrical, mucous membranes moist. Eyes General: appearance normal, both eyes and all related structures Neck Neck: Yes normal visual inspection and Yes full ROM Resp Effort & Inspection: normal respiratory effort Auscultation: clear to auscultation bilaterally Cardio Rate: regular rate Rhythm: regular rhythm Heart sounds: S1 normal heart sound present and S2 normal heart sound present GI Other: The abdomen was soft and nontender throughout. Digital rectal exam revealed no stool in the rectum. Skin Other: Skin is dry and unremarkable Neuro Other: The patient is awake and alert with a normal mental status. Cranial nerves 2-12 are grossly intact. She moves her extremities normally and appropriately. Extrem Other: No peripheral edema Medications Administered Discontinued Medications Generic Name Dose Route Start Last Admin Trade Name Freq PRN Reason Stop Dose Admin Magnesium Citrate 300 ml 03/19/25 11:44 03/19/25 12:03 Magnesium Citrate 300 Ml Solution PO 03/19/25 11:45 300 ml ONCE ONE Administration Medical Decision Making Medical Decision Making [facility] Narrative: The patient is a 59-year-old woman who seems to describe chronic problems with intermittent constipation. She says she has a history of irritable bowel syndrome. She comes to the emergency department saying that she has a sense that she may be impacted. Clinically the patient has normal vital signs and does not look acutely ill. She has a soft, benign abdomen. Rectal exam reveals no impaction. I suspect she is having symptoms probably related to constipation without impaction. The patient will be given a bottle of magnesium citrate and I will send a prescription for MiraLax as well. The patient was discharged. She will drink the bottle of magnesium citrate at home today. She should return if worse. Discharge Plan Discharge Clinical Impression: Constipation Patient Disposition: Home, Self-Care Instructions: Constipation (ED) Additional Instructions: Please drink the bottle of magnesium citrate liquid this afternoon. My hope is that this will start to cause you to have bowel movements. Also I have sent a prescription for MiraLax to your pharmacy. Please start taking this every day starting tomorrow. My hope is that your insurance will cover this prescription. Please plan on following up with your primary care doctor in the short run to discuss your bowel regimen. It would also be good for you to try to reschedule your colonoscopy and also to make an appointment with a insurance adjustor regarding your bowel habits. Please contact [facility] tomorrow as well. Return to the emergency room if you feel significantly worse, especially worsening abdominal pain, fever, or vomiting. Prescriptions: New polyethylene glycol 3350 [ClearLax] 17 gram/dose powder 17 g PO DAILY Qty: 238 0RF No Action lisinopril 20 mg tablet 20 mg PO DAILY polymyxin B sulf-trimethoprim 10,000 unit- 1 mg/mL drops 1 drp ophthalmic (eye) Q4H 5 Days Qty: 10 0RF Rx Instructions: while awake; do not exceed 5 doses in 24 hours pravastatin 40 mg tablet 40 mg PO DAILY fluticasone propionate 50 mcg/actuation spray,suspension 1 spray intranasal BID Qty: 16 0RF Rx Instructions: administer into each nostril sennosides [senna] 8.6 mg tablet 17.2 mg PO BEDTIME PRN (Reason: constipation) 30 Days Qty: 60 0RF polyethylene glycol 3350 [Miralax] 17 gram/dose powder 238 g PO ONCE Qty: 238 0RF Rx Instructions: For colonoscopy prep. Mix with 64oz gatorade and drink a cup every 10 minutes Referrals: [facility] [Provider Group] (chronic constipation, needs colonoscopy also) Karina Minor MD [Primary Care Provider] - (constipation) Interventions: ED Discharge Assessment Last Done: 03/19/25 12:24 Discharge Date/Time: 03/19/25 12:25 Print Language: Bahraini
[2025-03-19] MEDS: Magnesium Citrate 300 ML SOLUTION PO (12:03)
[2025-03-19 12:24] VITALS: BP 122/62; PULSE 92; RESP 19; TEMP 36.6; O2SAT 98
== END 2025-03-19 12:25 | disposition home or self-care (01) ==
PROVIDERS: Emergency Provider Emergency Medicine; PCP Student in an Organized Health Care Education/Training Program
DX: K59.00 Constipation, unspecified (principal)
CPT/HCPCS: 74018; 99282; 99283

== ENCOUNTER → 2025-03-19 11:30 | Outpatient (BNV) | payer OTHER, SELFPAY | PROVIDERS: Emergency Provider Emergency Medicine; PCP Student in an Organized Health Care Education/Training Program; Visit Provider Radiology Diagnostic Radiology | DX: K59.00 Constipation, unspecified (principal) | CPT/HCPCS: 74018 ==

== ENCOUNTER 2025-04-23 15:51 | Emergency (ER) | payer OTHER, SELFPAY ==
--- NOTE | ~2025-04-23 | XR_ITS ---
CLINICAL HISTORY: constipation eval Single view of the abdomen. COMPARISON: None provided. FINDINGS: Normal bowel distention. Pelvic phleboliths. No pneumoperitoneum identified. Pgqm-fj-nxlhxocx colonic stool burden most pronounced within the ascending colon. No fracture identified. Visualized portions of the lung bases were unremarkable. IMPRESSION: 1. Nonspecific nonobstructive bowel gas pattern. 2. Btch-mb-puoblyaw colonic stool burden most pronounced within the ascending colon. This document has been electronically signed by: Luis Cabrera MD on 04/23/2025 17:55:24
--- NOTE | 2025-04-23 16:33 | ED_ITS ---
HPI - General Adult General Chief complaint: Abdominal Pain Stated complaint: abd pain,states been passing out Time Seen by Provider: 04/23/25 20:39 Source: patient Mode of arrival: ambulatory Limitations: no limitations History of Present Illness ED Provider: HPI narrative: Patient's history of chronic constipation comes here as been constipated for last 1 week taking stool softener no vomiting no abdominal distention history of same in the past Related Data Home Medications ?Medication ?Instructions ?Recorded ?Confirmed pravastatin 40 mg tablet 40 mg PO DAILY 10/02/22 12/07/16 lisinopril 20 mg tablet 20 mg PO DAILY 07/03/24 Previous Rx's ?Medication ?Instructions ?Recorded sennosides 8.6 mg tablet (senna) 17.2 mg (2 x 8.6 mg) PO BEDTIME 02/15/24 PRN constipation 30 days #60 tabs polymyxin B sulfate 10,000 1 drp ophthalmic (eye) Q4H 5 days 07/03/24 unit-trimethoprim 1 mg/mL eye drops #10 mL fluticasone propionate 50 1 spray intranasal BID #16 g carly 10/19/24 mcg/actuation nasal spray,suspension polyethylene glycol 3350 17 238 g PO ONCE #238 grams 0 01/15/25 gram/dose oral powder (Miralax) polyethylene glycol 3350 17 17 g PO DAILY #238 grams 0 03/19/25 gram/dose oral powder (ClearLax) bisacodyl 5 mg tablet,delayed 10 mg (2 x 5 mg) PO BEDT LUIS PRN 04/23/25 release (Dulcolax (bisacodyl)) constipation #30 tabs Allergies Allergy/AdvReac Type Severity Reaction Status Date / Time seafood Allergy Itching Verified 04/23/25 16:35 Review of Systems 2 Review of Systems: Yes all other systems are reviewed and are negative PMFSH Past Medical History Medical History Dysuria Surgical History Hx of colonoscopy Social History Social History Alcohol intake: former Patient Tobacco Use Status: Never used Tobacco Smoked in Last 30 Days: No Advance Directives: No Advance Directives Information Provided: Yes Do you have a plan to hurt others: No Plan Physical Exam ED Vital Signs: BMI result Body Mass Index 45.9 Appearance: Alert. Oriented X3. No acute distress. Eyes: no pallor or icterus ENT: Pharynx normal Oral Mucosa moist tympanic membrane intact no erythema, Neck: Normal inspection. Neck supple. CVS: Normal heart rate and rhythm. Pulses normal. Respiratory: No respiratory distress. Equal air entry bilateral, no wheezing/rales/rhonchi Abd: soft, not distended no focal tenderness Skin: Skin warm and dry. Normal skin color. Normal skin turgor. Extremities: No lower extremity edema, no calf tenderness rectal: Empty rectum Neuro: Oriented X 3. Course Course Course Narrative: RME performed by Madelaine Williamson PA-C. Patient is a 60 year old assigned female at presenting to the emergency department with continued abdominal pain and difficulties with bowel movements. 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 Labs ordered. Patient placed back in the waiting room pending room availability and results. Medications Administered Discontinued Medications Generic Name Dose Route Start Last Admin Trade Name Freq PRN Reason Stop Dose Admin Bisacodyl 10 mg 04/23/25 21:38 04/23/25 21:52 Bisacodyl 5 Mg Tablet.Dr PO 04/23/25 21:39 10 mg ONCE ONE Administration Magnesium Citrate 300 ml 04/23/25 21:13 04/23/25 21:24 Magnesium Citrate 300 Ml Solution PO 04/23/25 21:14 300 ml ONCE ONE Administration Medical Decision Making Medical Decision Making [facility] Narrative: Patient has chronic constipation will give Mag citrate no findings of acute abdominal findings labs are stable no signs of obstruction Lab Data [facility] Lab Attestation statement: I reviewed the patient's lab results. 04/23/25 17:45 04/23/25 17:45 Labs: Lab Results 04/23/25 Range/Units 17:45 WBC 7.3 (4.8-10.8) X10*3/uL RBC 4.42 (4.20-5.50) X10*6/uL Hgb 13.7 (12.0-16.0) g/dl Hct 41.9 (37.0-47.0) % MCV 94.8 (80.0-98.0) fL MCH 31.0 (27.0-33.0) pg MCHC 32.7 (31.0-35.0) g/dl RDW 13.3 (11.0-16.0) % Plt Count 284 (160-400) X10*3/uL MPV 10.1 (9.4-12.3) fL Immature Gran % (Auto) 0.4 (0.0-0.4) % Neut % (Auto) 47.4 (45-73) % Lymph % (Auto) 37.9 (20-40) % [place] % (Auto) 10.6 (2-11) % Eos % (Auto) 2.6 (0-4) % Baso % (Auto) 1.1 (0-2) % Lymph # (Auto) 2.8 (1.2-4.9) X10*3/uL [place] # (Auto) 0.8 (0.1-1.2) X10*3/uL Eos # (Auto) 0.2 (0.0-0.4) X10*3/uL Baso # (Auto) 0.1 (0.0-0.2) X10*3/uL Abs Immat Gran (auto) 0.03 (0.00-0.03) X10*3/uL Absolute Neuts (auto) 3.5 (2.0-8.3) x10*3/uL Absolute Nucleated RBC 0.000 (0.0-0.012) X10*3/uL Nucleated RBC % (auto) 0.0 (0.0-0.2) /100WBC Sodium 135 (135-145) mmol/L Potassium 4.4 (3.3-5.1) mmol/L Chloride 108 (96-108) mmol/L Carbon Dioxide 16 L (22-29) mmol/L Anion Gap 15 (12-20) BUN 11 (9-16) mg/dL Creatinine 0.69 (0.5-1.4) mg/dL Estim Creat Clear Calc 122.2 Estimated GFR > 60 Random Glucose 90 (60-115) mg/dL Calcium 9.1 (8.4-10.2) mg/dL Magnesium 2.0 (1.6-2.6) mg/dL Total Bilirubin 0.2 (0.0-1.0) mg/dL AST 15 (5-31) U/L ALT 14 (0-31) U/L Alkaline Phosphatase 79 (39-117) U/L Total Protein 6.8 (6.5-8.0) g/dL Albumin 3.7 (3.5-5.0) g/dL Independent Interpretation I performed an independent interpretation of an: Plain X-Ray Discharge Plan Discharge Clinical Impression: Constipation Patient Disposition: Home, Self-Care Instructions: Constipation (ED) Additional Instructions: Continue take senna and MiraLax daily Have lots of fibers Prescriptions: New bisacodyl [Dulcolax (bisacodyl)] 5 mg tablet,delayed release (DR/EC) 10 mg PO BEDTIME PRN (Reason: constipation) Qty: 30 0RF No Action polyethylene glycol 3350 [ClearLax] 17 gram/dose powder 17 g PO DAILY Qty: 238 0RF lisinopril 20 mg tablet 20 mg PO DAILY polymyxin B sulf-trimethoprim 10,000 unit- 1 mg/mL drops 1 drp ophthalmic (eye) Q4H 5 Days Qty: 10 0RF Rx Instructions: while awake; do not exceed 5 doses in 24 hours pravastatin 40 mg tablet 40 mg PO DAILY fluticasone propionate 50 mcg/actuation spray,suspension 1 spray intranasal BID Qty: 16 0RF Rx Instructions: administer into each nostril sennosides [senna] 8.6 mg tablet 17.2 mg PO BEDTIME PRN (Reason: constipation) 30 Days Qty: 60 0RF polyethylene glycol 3350 [Miralax] 17 gram/dose powder 238 g PO ONCE Qty: 238 0RF Rx Instructions: For colonoscopy prep. Mix with 64oz gatorade and drink a cup every 10 minutes Interventions: ED Discharge Assessment Last Done: 04/23/25 21:54 Discharge Date/Time: 04/23/25 21:55 Print Language: Armenian
[2025-04-23 16:34] VITALS: BP 145/76; PULSE 78; RESP 18; TEMP 36.6; O2SAT 99; BMI 45.9
[2025-04-23 17:59] LABS: MANUAL DIFF FLAG NO
[2025-04-23 18:09] LABS: Basophils Absolute Auto 0.1 X10*3/uL (0.0-0.2); Basophils Percent Auto 1.1 % (0-2); Eosinophils Absolute Auto 0.2 X10*3/uL (0.0-0.4); Eosinophils Percent Auto 2.6 % (0-4); Hematocrit 41.9 % (37.0-47.0); Hemoglobin 13.7 g/dl (12.0-16.0); Imm Gran Abs Auto 0.03 X10*3/uL (0.00-0.03); Imm Gran Pct Auto 0.4 % (0.0-0.4); Lymphocytes Absolute Auto 2.8 X10*3/uL (1.2-4.9); Lymphocytes Percent Auto 37.9 % (20-40); Mean Corpuscular HGB Conc 32.7 g/dl (31.0-35.0); Mean Corpuscular Volume 94.8 fL (80.0-98.0); Mean Platelet Volume 10.1 fL (9.4-12.3); Monocytes Absolute Auto 0.8 X10*3/uL (0.1-1.2); Monocytes Percent Auto 10.6 % (2-11); Neutrophils Absolute Auto 3.5 x10*3/uL (2.0-8.3); Neutrophils Percent Auto 47.4 % (45-73); Platelet Count 284 X10*3/uL (160-400); Red Blood Count 4.42 X10*6/uL (4.20-5.50); Red Cell Distribution Width 13.3 % (11.0-16.0); White Blood Count 7.3 X10*3/uL (4.8-10.8)
[2025-04-23 18:15] LABS: Alanine Aminotransferase 14 U/L (0-31); Albumin Level 3.7 g/dL (3.5-5.0); Alkaline Phosphatase 79 U/L (39-117); Anion Gap 15 (12-20); Aspartate Amino Transferase 15 U/L (5-31); Bilirubin Total 0.2 mg/dL (0.0-1.0); Blood Urea Nitrogen 11 mg/dL (9-16); Calcium 9.1 mg/dL (8.4-10.2); Carbon Dioxide 16 mmol/L (22-29); Chloride 108 mmol/L (96-108); Creatinine Clr Calc Pharmacy 122.2; Estimated Glomerular Filt Rate > 60; Glucose Random 90 mg/dL (60-115); Potassium 4.4 mmol/L (3.3-5.1); Sodium 135 mmol/L (135-145); Total Protein 6.8 g/dL (6.5-8.0)
[2025-04-23 20:31] VITALS: BP 110/53; PULSE 82; RESP 20; TEMP 36.7; O2SAT 98
--- OUTSIDE RECORDS SUMMARY | 2025-04-23 21:15 | XMS_ITS | Data Portability ---
Author Organization re[employer] [facility], [place] [employer] [facility] Address [address] [place] [address] Care Team Providers Care Computer Support Technician Name Role Phone [facility] OTHER [facility] OTHER Assessment Encounter Date Assessment Date Assessment LastModified by Organization Details LastModified Time 07/06/2024 07/06/2024 Ms. Radha Miller is a 59yoF w/ a PmHx of HTN who is seen today for further evaluation of throat pain. Ms. Miller reports that over the past week she has had a sore throat that is slightly worse with swallowing. She describes the sensation as a lump in her throat. She presented to an urgent care earlier this week and was tested for COVID/flu/RSV/ strep (negative) but has continued to have pain. She has taken tylenol with some relief. No fevers/chills, cough/congesti on, headaches, or any other concerns. She is able to eat/drink without difficulty. VSS. Medic on site reports no acute distress, unable to visualize posterior oropharynx. Unsure of the etiology of her symptoms. Does not sounds typically bacterial or viral. Recommended seeing her PCP for an in-person evaluation and in the interim utilizing OTC pain medication and salt water gargles. Red flags discussed. Primary team, Ms. Miller would benefit from an in-person evaluation in the next week or so. [email or web address] Not available 07/06/2024 13:48:58 Plan of Treatment Reminders Order Date Submit Date Provider Last Modified By Organization Details Last Modified Time Details Appointments None recorded. Lab unlisted lab - urinalysis w/reflex culture 2021 022 [facility] (Centralized Electronic Ordering - All Locations), Patient Can Go To The Location Of Their Choice, [id number] 11:59:28 urinalysis, dipstick 2021 022 [email or web address] Main - [address], [phone] 13:50:22 Referral None recorded. Procedures None recorded. Surgeries None recorded. Imaging None recorded. Medication Orders Macrobid 100 mg capsule 2021 022 [id number], [address] [place], [place], [phone], 13:35:38 Pyridium 100 mg tablet 2021 022 [facility] #[id number], [address], [place], [phone], 13:35:37 Patient TargetsNo targets recorded. Patient InstructionsNo instructions recorded. Reason for Referral None Reported. Results Created Date Observation Date Name Description Value Unit Range Abnormal Flag Note LastModifiedBy Organization Detail LastModifiedTime 12/27/1912/26/2021 urina lysis , dipst ick Leukocytes ++ Not Available Main - [address], [phone] 12/26/2021 13:49:58 12/27/1912/26/2021 urina lysis , dipst ick Nitrite negati ve Not Available Main - [address], [address] 12/26/2021 13:49:58 12/27/19 22 12/26/2021 urina lysis , dipst ick Protein 30 Not Available Main - Ins [address], [address] 12/26/2021 13:49:58 12/27/19 22 12/26/2021 urina lysis , dipst ick Blood + Not Available Main - Ins [address], [address] 12/26/2021 13:49:58 12/27/19 22 12/26/2021 urina lysis , dipst ick Specific [place] 1.020 Not Available [facility] - [address], [address] 12/26/2021 13:49:58 Result Notes None recorded. Medical Equipment None Reported. Allergies No known drug allergies Medications Name Sig Start Date Stop Date Status Note LastModified by Organization Details LastModified Time pravastatin 40 mg tablet TAKE 1 TABLET BY MOUTH EVERY DAY active Not Available Not Available No t Available fluconazole 150 mg tablet TAKE 1 TABLET BY MOUTH 1 TIME. REPEAT IN 1 WEEK IF STILL SYMPTOMATIC VAGINITIS active Not Available Not Available No t Available acetaminophe n 500 mg tablet active Not Available Not Available Not Available phenazopyrid ine 100 mg tablet TAKE 1 TABLET BY MOUTH THREE TIMES DAILY FOR 2 DAYS active Not Available Not Available N ot Available lisinopril 10 mg tablet TAKE 1 TABLET BY MOUTH EVERY DAY active Not Available Not Available No t Available pravastatin 20 mg tablet TAKE 1 TABLET BY MOUTH EVERY NIGHT AT BEDTIME active Not Available Not Available No t Available amoxicillin 500 mg-potassium clavulanate 125 mg tablet TAKE 1 TABLET BY MOUTH EVERY 12 HOURS active Not Available Not Available No t Available nitrofuranto in monohydrate/ macrocrystal s 100 mg capsule TAKE 1 CAPSULE BY MOUTH EVERY 12 HOURS FOR 3 DAYS active Not Available Not Available N ot Available FeroSul 325 mg (65 mg iron) tablet TAKE 1 TABLET BY MOUTH DAILY active Not Available Not Available Not Available Vitals Date Recorded Heart rate Body temperature Oxygen saturation Oxygen saturation in Arterial blood by Pulse oximetry Systolic blood pressure Diastolic blood pressure Provider Name and Address Organization Details Last Updated DateTime 2 94 /min 98 [degF] 96.03 % 96.03 % 156 mm[Hg] 90 mm[Hg] Keren Chapman MD [address] [place] [address],[address], [place], [address], [place] - [facility] 2 13:32:35 Date Recorded Oxygen saturation Oxygen saturation in Arterial blood by Pulse oximetry Heart rate Respiratory rate Body temperature Body weight Systolic blood pressure Diastolic blood pressure Provider Name and Address Organization Details Last Updated DateTime 4 98 % 98 % 80 /min 16 /min 98.7 [degF] 751192. 76 g 132 mm[Hg] 84 mm[Hg] Not Available [employer] [facility] [employer] 4 10:49:22 Social History None recorded. Functional Status None recorded. Mental Status None recorded. Family History Nothing Reported. Medical History No medical history recorded. Gynecological HistoryNo gynecological history recorded. Obstetrics History GPAL:G 0 P 0 0 0 0 Past Encounters Encounter ID Performer Location Encounter Start Date Encounter Closed Date Diagnosis/Indication Diagnosis SNOMED-CT Code Diagnosis ICD10 Code Diagnosis Note [id number] Keren Chapman MD Main - [facility] [address] [place] [phone] 12/26/2021 13:01:04 06/11/2022 11:56:35 Urinary tract infectious disease 59393300 N39.0 Prsenting w/ sx UTI, no CVA TTP on strip catcher exam, does not meet sepsis criteria. Will empiricall y treat for uncomplica josiane UTI and send urine cx, PCP to f/up result and tailor abx if needed. Red flag symptoms reviewed, pt instructed to call 911 if condition worsens or new symptoms develop, [place]. [id number] Meagan Marina MD Main - [facility] [address] [place] [phone] 07/06/2024 10:49:19 07/06/2024 21:39:38 Pain in throat 346025985 R07.0 Health Concerns Section Related Observation LastModified by Organization Detai ls LastModified Time None Recorded Concern Status LastModified by Organization Details LastModified Time None Recorded Advance Directives Directive None Recorded Payers Insurance Date Sequence Insurance Name Policy Number Policy Vazquez Covered Member ID Vazquez Member ID Guarantor Name 07/06/2024 1 [facility] - DOS PRIOR TO 2023 - DUAL ELIGIBLE (MEDICARE REPLACEMENT/AD VANTAGE - HMO) Radha Miller [id number] Radha Miller 2025 1 [facility] - DOS ON OR AFTER 2023 - DUAL ELIGIBLE - USP OPTIONS AND ONE CARE (MEDICARE REPLACEMENT/AD VANTAGE - HMO) Radha Miller [id number] Radha Miller Notes Date Note Type Note Provider Name and Address Organization Details Recorded Time 12/26/2021 text/html Per request: UTI symptoms Per strip catcher documentation: Evaluated pt c/o x2 weeks or urinary s/s including dysuria at end of stream, general flank discomfort, and increased frequency. Pt denies fevers/chills, hematuria, n/v/d, abd pain. Pt endorses increasing water intake but has not helped. Skin is pink, warm, and dry. Pt is anxious during visit, wants to avoid visit to ER. Pt is speaking in full sentences, is in no acute distress, alert and oriented. No significant tenderness to flank on palpation. Vitals obtained, obtained urine specimen. Urine was yellow cloudy with no malodor. Performed dip and was +leuk, + trace blood, protein 30, SG 1.020. Consulted [facility] who will order scripts to pt's pharmacy and ordered urine to be brought to lab for ua/c&s. Provided pt education and advised she may receive a call back after urine culture to change antibiotics if needed. Went over red flags and no further questions or concerns at this time. Hx I obtained:Urinary frequency, dysuria, malaise x 2 weeksFlank painNo fevers/chillsDip + leuk, blood, sg 1.020 protein 30 Keren Chapman MD [address] [place] [address],[address], [place], [phone], [employer] 12/26/2021 13:59:51 07/06/2024 text/html HPI: Triage call reporting no improvement since seen at local [facility] for sore throat. Continues with pain and swollen in the back of throat Previous STREP and Covid negative. Symptoms present for > 1 week. .................. .................. .................. .................. .................. .................. .................. ............... [facility] Nurse Triage Notes (Carleen Jackson): Chief Complaints: ENT PMH: Hypertension Other Allergies: Seafood, clotrimazole Comments: [facility] RN did not require any additional information to process this visit. .................. .................. .................. .................. .................. .................. .................. ............... Administration Dean Note From Ernie Ivy: Pt co lump in throat. Sts gets scratchy after talking for awhile. Sts doesn t hurt to swallow is able to eat and drink. Denies fever cp sob NC abdominal pain, NVD. Pt was seen by UC and tested for strep RSv and Covid and all negative findings. Pt sts she feels ok. Denies chills body aches. Baseline vitals WNL. Throat appears normal in color. Afebrile, lungs clear. [facility] contacted and advised pt to make appointment with pcp for imagining. Pt education on signs indicating the ER. Consent sent via email. .................. .................. .................. .................. .................. .................. .................. ............... Disposition: Jamila Marina MD [address] [facility],[address], [place], [address], [employer] [facility] 07/06/2024 13:49:07 OBGyn Episode No OBEpisode recorded.
--- OUTSIDE RECORDS SUMMARY | 2025-04-23 21:15 | XMS_ITS | Encounter Summary ---
Author Organization [employer] Address [address] [facility] [address] [place] [address] Care Team Providers Care Industrial Engineering Name Role Phone Karina Minor MD Primary Care Provider [phone] Encounter Details Date Type Department Care Team ([facility] Contact Info) Description 12/11/2022 Orders Only [facility] PEDS [address], [place] [phone] Marisol Brantley RN [address] [place] [address] Social History Tobacco Use Types Packs/Day Years Used Date Smoking Tobacco: Never Assessed Comments Unknown Sex and Gender Information Value Date Recorded Sex Assigned at Female 08/24/2022 10:21 AM EDT Legal Sex Female 10:21 AM EDT Gender Identity Female 08/24/2022 10:21 AM EDT Sexual Orientation Straight 08/24/2022 10 :21 AM EDT documented as of this encounter Plan of Treatment Upcoming Encounters Date Type Department Care Team (Late Contact Info) Description 07/04/2025 9:30 AM EDT Office Visit [facility] [address] [place] [address] Karina Minor MD [address] [place], [place] [phone] documented as of this encounter Visit Diagnoses Not on filedocumented in this encounter Care Teams Industrial Engineering Relationship Specialty Start Date End Date Karina Minor MD [address] [place] [phone] PCP - General Family Medicine 11/01/13 documented as of this encounter
[2025-04-23] MEDS: Magnesium Citrate 300 ML SOLUTION PO (21:24)
--- NOTE | 2025-04-23 21:28 | PC.NURSE ---
provider into to discuss plan of care,medicated per mar, pt awaiting disposition.
[2025-04-23] MEDS: bisacodyL 5 MG TABLET.DR 10 MG PO (21:52)
[2025-04-23 21:54] VITALS: BP 110/53; PULSE 82; RESP 20; TEMP 36.7; O2SAT 98
== END 2025-04-23 21:55 | disposition home or self-care (01) ==
PROVIDERS: Physician Assistant Medical; Emergency Provider Internal Medicine; PCP Student in an Organized Health Care Education/Training Program
DX: K59.09 Other constipation (principal)
CPT/HCPCS: 36415; 74018; 80053; 83735; 85025; 99283; 99284

== ENCOUNTER → 2025-04-23 16:34 | Outpatient (BNV) | payer OTHER, SELFPAY | PROVIDERS: PCP Student in an Organized Health Care Education/Training Program; Visit Provider Radiology Diagnostic Radiology | DX: K56.41 Fecal impaction (principal) | CPT/HCPCS: 74018 ==

== ENCOUNTER 2025-06-11 08:35 | Emergency (ER) | payer OTHER, SELFPAY ==
--- NOTE | ~2025-06-11 | XR_ITS ---
EXAMINATION: XR ABDOMEN 1 VIEW (KUB) HISTORY: constipation COMPARISON: Comparison is made with the prior examination dated 04/23/2025. FINDINGS: Two supine views of the abdomen are submitted. The bowel gas pattern is unremarkable, without evidence of mechanical obstruction. There is a moderate amount of stool in the proximal colon. Multiple phleboliths are noted. There are no abnormal soft tissue masses. The bones are intact. XR/XR KUB IMPRESSION: Moderate stool in the proximal colon. Electronically signed by: Joce Chung MD 06/11/2025 01:23 PM EDT
[2025-06-11 08:54] VITALS: BP 129/60; PULSE 83; RESP 16; TEMP 37; O2SAT 97; BMI 33.3
--- NOTE | 2025-06-11 12:55 | ED.GENADULT ---
HPI - General Adult General Chief complaint: Abdominal Pain Stated complaint: pt states has gut issues and is in pain Time Seen by Provider: 06/11/25 12:50 Source: patient and RN notes reviewed Mode of arrival: ambulatory Limitations: no limitations History of Present Illness ED Provider: Justina Barnard PA-C HPI narrative: This is a 60-year-old female, with a history of degenerative disc disease, hypertension, and hyperlipidemia, who presents emergency department with concerns of constipation. Patient reports that she has had ongoing constipation for the last 8 months or longer. Patient states that she feels as though ?I am backed up , and believes that there is stool trapped in her colon that she is unable to get out. She does report some intermittent lower abdominal pain ranging from a 5/10 to 8/10 in severity. She reports that this discomfort she is experiencing in her lower abdomen is relieved with bowel movements. She states that her bowel movements are exclusively ?loose stool?. She has a bowel movement typically at least once a day if not more. She feels as though not all the stool is fully evacuating. Patient was seen here in February 2025 for constipation, as well as March 2025. MD complaint: Constipation Onset (ago): year(s) Relieving factors: none Exacerbating factors: none Associated symptoms: denies other symptoms Treatments prior to arrival: none Related Data Home Medications ?Medication ?Instructions ?Recorded ?Confirmed pravastatin 40 mg tablet 40 mg PO DAILY 10/02/22 10/02/22 lisinopril 20 mg tablet 20 mg PO DAILY 07/03/24 Previous Rx's ?Medication ?Instructions ?Recorded sennosides 8.6 mg tablet (senna) 17.2 mg (2 x 8.6 mg) PO BEDTIME 02/15/24 PRN constipation 30 days #60 tabs polymyxin B sulfate 10,000 1 drp ophthalmic (eye) Q4H 5 days 07/03/24 unit-trimethoprim 1 mg/mL eye drops #10 mL fluticasone propionate 50 1 spray intranasal BID #16 grams 10/19/24 mcg/actuation nasal spray,suspension polyethylene glycol 3350 17 238 g PO ONCE #238 grams 01/15/25 gram/dose oral powder (Miralax) polyethylene glycol 3350 17 17 g PO DAILY #238 grams 03/19/25 gram/dose oral powder (ClearLax) bisacodyl 5 mg tablet,delayed 10 mg (2 x 5 mg) PO BEDTIME PRN 04/23/25 release (Dulcolax (bisacodyl)) constipation #30 tabs Allergies Allergy/AdvReac Type Severity Reaction Status Date / Time seafood Allergy Itching Verified 06/11/25 08:57 Review of Systems Review of Systems: Yes all other systems are reviewed and are negative Constitutional: Constitutional: Reports as per [facility] Past Medical History Medical History Dysuria Surgical History Hx of colonoscopy Social History Social History Alcohol intake: former Patient Tobacco Use Status: Never used Tobacco Advance Directives: No Advance Directives Information Provided: Yes Physical Exam ED Vital Signs: Vital Signs - 24 hr 06/11/25 08:54 06/11/25 13:29 06/11/25 16:50 Temperature 98.6 F 98.1 F 98.1 F Pulse Rate 83 81 81 Respiratory Rate 16 16 16 Blood Pressure 129/60 121/64 121/64 Pulse Oximetry 97 98 98 Oxygen Delivery Method Room Air Room Air Room Air BMI result Body Mass Index 33.3 Const General: cooperative, comfortable and no acute distress Orientation/consciousness: patient oriented x3 Limitations: no limitations [facility] Head: Yes normal to inspection, Yes normocephalic and Yes atraumatic Ears: hearing grossly normal bilaterally General nose exam: Normal external nose present Face and sinus: Yes normal facial exam Mouth: Normal oral and palatal mucosa present, oropharynx normal and moist mucous membranes Throat: Yes posterior oropharynx normal Eyes General: appearance normal, both eyes and all related structures Eyelids: Yes eyelids normal Conjunctivae: conjunctivae normal Sclerae: sclerae normal Pupils: Equal, round and reactive pupils present EOM: EOMs intact bilaterally Neck Neck: Yes normal visual inspection, Yes full ROM and Yes no lymphadenopathy Lymphatic: no lymphadenopathy noted Chest Chest palpation & inspection: normal inspection of the chest Resp Effort & Inspection: normal respiratory effort and able to speak in complete sentences Auscultation: clear to auscultation bilaterally, no crackles, no rales, no rhonchi and no wheezes Cardio Rate: regular rate Rhythm: regular rhythm Heart sounds: S1 normal heart sound present and S2 normal heart sound present GI Other: Abdomen is soft, nontender, nondistended, normoactive bowel sounds in all 4 quadrants. Inspection: Yes normal to inspection Skin General skin exam: no rashes or lesions noted Trauma: no lacerations or abrasions Wounds: no wounds Neuro General: patient oriented x3 and moves all extremities Cranial nerves: Yes Equal, round and reactive pupils present Extrem General: Yes normal to inspection Right upper extremity: normal to inspection Left upper extremity: normal to inspection Right lower extremity: normal to inspection Left lower extremity: normal to inspection Medical Decision Making Medical Decision Making MDM Narrative: This is a 60-year-old female who presents emergency department for evaluation of constipation for many years. On arrival, vital signs within normal limits. She is speaking in full sentences under no acute distress. Abdomen is soft, nontender, nondistended. Normoactive bowel sounds present in all 4 quadrants. A KUB was obtained prior to my evaluation, revealing moderate stool in the proximal colon. She did express some mild dysuria, therefore a urinalysis was obtained, this was negative. Patient has had this problem for many years, she states that she feels as though she is not able to fully empty her stool. There is no evidence of small-bowel obstruction, her abdomen is soft and nontender. She is eating and drinking without difficulty. She is overall well-appearing. She already has laxatives that she takes at home. I discussed with patient that she needs to follow-up with a GI specialist. She states that she has called there however known answers the phone and she does not leave a message. I stressed the importance that she needs to follow-up with the GI specialist as they are able to further treat her symptoms and manage the symptoms. There is no indication for obtaining any labs at this time. She was given strict return precautions. Educated the importance of lifestyle modifications including increased dietary fiber, drinking plenty of foods, exercise. She understands and agrees with plan. Patient stable for discharge Differential Diagnosis Differential Diagnoses: The differential diagnosis associated with the presentation includes Constipation, small bowel obstruction, UTI Lab Data MDM Lab Attestation statement: I reviewed the patient's lab results. Negative Labs: Lab Results 06/11/25 Range/Units 15:56 Urine Color Yellow Urine Appearance Clear Urine pH 5.5 (5.0-9.0) Ur Specific [place] 1.020 (1.005-1.025) Urine Protein Negative (Neg-Trace) mg/dL Urine Glucose (UA) Negative (Negative) mg/dL Urine Ketones Negative (Negative) mg/dL Urine Blood Negative (Negative) Urine Nitrite Negative (Negative) Ur Leukocyte Esterase Negative (Negative) Radiology Impression Discussion of test interpretation with radiology: I have reviewed the radiologist's reading. Radiologist Impression: EXAMINATION: XR ABDOMEN 1 VIEW (KUB) HISTORY: constipation COMPARISON: Comparison is made with the prior examination dated 04/23/2025. FINDINGS: Two supine views of the abdomen are submitted. The bowel gas pattern is unremarkable, without evidence of mechanical obstruction. There is a moderate amount of stool in the proximal colon. Multiple phleboliths are noted. There are no abnormal soft tissue masses. The bones are intact. XR/XR KUB IMPRESSION: Moderate stool in the proximal colon. Electronically signed by: Joce Chung MD 06/11/2025 01:23 PM EDT Dictated By: Joce Chung MD Signed By: <Electronically signed by Joce Chung MD in OV> Discharge Plan Discharge Clinical Impression: Chronic idiopathic constipation Patient Disposition: Home, Self-Care Instructions: Constipation (ED), High Fiber Diet (ED) Additional Instructions: You were seen in the emergency department for ongoing bowel problems. Your x-ray reveals moderate stool in your colon. Continue using your stool regimen at home. Drink plenty of fluids get plenty of rest, exercise, and eat a well-balanced diet. You need to follow-up with the GI specialist as these are the specialist that can help with your symptoms. If any new or worsening symptoms occur including but not limited to severe abdominal pain, fevers, vomiting, severe chest pain or shortness of breath, please seek emergent care. Your urine was not infected today. Prescriptions: No Action bisacodyl [Dulcolax (bisacodyl)] 5 mg tablet,delayed release (DR/EC) 10 mg PO BEDTIME PRN (Reason: constipation) Qty: 30 0RF polyethylene glycol 3350 [ClearLax] 17 gram/dose powder 17 g PO DAILY Qty: 238 0RF lisinopril 20 mg tablet 20 mg PO DAILY polymyxin B sulf-trimethoprim 10,000 unit- 1 mg/mL drops 1 drp ophthalmic (eye) Q4H 5 Days Qty: 10 0RF Rx Instructions: while awake; do not exceed 5 doses in 24 hours pravastatin 40 mg tablet 40 mg PO DAILY fluticasone propionate 50 mcg/actuation spray,suspension 1 spray intranasal BID Qty: 16 0RF Rx Instructions: administer into each nostril sennosides [senna] 8.6 mg tablet 17.2 mg PO BEDTIME PRN (Reason: constipation) 30 Days Qty: 60 0RF polyethylene glycol 3350 [Miralax] 17 gram/dose powder 238 g PO ONCE Qty: 238 0RF Rx Instructions: For colonoscopy prep. Mix with 64oz gatorade and drink a cup every 10 minutes Referrals: [facility] Gastroenterology Services [Provider Group, Gastroenterology] Interventions: ED Discharge Assessment Last Done: 06/11/25 16:50 Discharge Date/Time: 06/11/25 16:50 Print Language: [place] Citizen
[2025-06-11 13:29] VITALS: BP 121/64; PULSE 81; RESP 16; TEMP 36.7; O2SAT 98
--- OUTSIDE RECORDS SUMMARY | 2025-06-11 13:44 | XMS_ITS | Encounter Summary ---
Author Organization [email or web address] Address [address] [facility] [address] [place] [address] Care Team Providers Care Insole Channeler Name Role Phone Karina Minor MD Primary Care Provider [phone] Encounter Details Date Type Department Care Team ([facility] Contact Info) Description 12/11/2022 Orders Only [facility] MED & PEDS [address] [place], [place] [phone] Marisol Brantley RN [address] [place] [address] Social History Tobacco Use Types Packs/Day Years [...] Description 07/04/2025 9:30 AM EDT Office Visit [facility] [address] [place] [address] Karina Minor MD [address] [place], [place] [phone] documented as of this encounter Visit Diagnoses Not on filedocumented in this encounter Care Teams Insole Channeler Relationship Specialty Start Date End Date Karina Minor MD [address] [place] [id number] PCP - General Family Medicine 11/01/13 documented as of this encounter
[2025-06-11 16:15] LABS: Appearance Urine Clear; Glucose Urine UA Negative (Negative); PH 5.5 (5.0-9.0); Specific Gravity - Urine 1.020 (1.005-1.025)
[2025-06-11 16:50] VITALS: BP 121/64; PULSE 81; RESP 16; TEMP 36.7; O2SAT 98
== END 2025-06-11 16:50 | disposition home or self-care (01) ==
PROVIDERS: Physician Assistant Medical; Emergency Provider Emergency Medicine
DX: K59.04 Chronic idiopathic constipation (principal)
CPT/HCPCS: 74018; 81003; 99283

== ENCOUNTER → 2025-06-11 12:12 | Outpatient (BNV) | payer OTHER, SELFPAY | PROVIDERS: Emergency Provider Emergency Medicine; Visit Provider Radiology Diagnostic Radiology | DX: K59.00 Constipation, unspecified (principal) | CPT/HCPCS: 74018 ==

== ENCOUNTER 2025-08-08 12:39 | Outpatient (AMB) | payer OTHER, SELFPAY ==
--- NOTE | 2025-08-08 12:57 | MHC.OFFVIS ---
Vital Signs 08/08/25 13:03 Height 5 ft 5 in BP 135/61 Blood Pressure Location Lt brachial Position Sitting Pulse 59 Pulse Oximetry (%) 96 Oxygen Delivery Method Room Air Intake Visit Reasons: stomach pain, cic Intake Note: Patient follow up for CIC and abdominal pain. Patient cc: Constipation with bloody hemorrhoids on and off, abdominal pain with bloating and heartburn. Retail Supervisor Required: No Accompanied by: Self / Same As Patient Allergies seafood Allergy (Verified 08/08/25 12:57) Itching HPI Comments Details: This is a 58y.o F with PMH of HTN, IBS, cone-hayes dystrophy who is here for worsening constipation. Reports that used to go to have BMs that were regular and soft but for the past few months has been noticing BMs are now hard and only goes 3 times a week. Has to take stool softener or suppositories to help which does help very well. Diet is poor in fiber (pop tart, mcdonalds) - fluid intake is around 30-40oz per day. Lifestyle is sedentary. Had a colo when she turned 52 - done at [facility]. Recall 10 years per pt's report. 01/15/25: Here for follow up. Was lost to follow up last year. BM frequency is better goes 4-5 times a week. Sometimes takes miralax which helped. Takes glycerin suppositories for impaction. Main concern is intermittent blood per rectum which is new. Most recent episode last month. Thinks related to straining. Also has feeling of incomplete evacuation with this. Not on consistent regimen for consiipation. PRN miralax as above or takes sugar free gummies to help her go. has also been having frequent URIs. Was diagnosed with bronchitis recently and given oulse steroids. Pt without any PFTs on file. 08/08/25: Has been to the ER 2 more times since she was last seen. [facility] on hold due to PFTs. Went in February but was canceled as machine was not functioning. She never got a call back to book this again. Currently taking miralax BID but still has to take mag citrate every day. Along with this also has considerable cramping and abd bloating. [facility] Medical History Dysuria Surgical History Hx of colonoscopy Social History Alcohol intake: former Patient Tobacco Use Status: Never used Tobacco Review of Systems Const All systems reviewed & are unremarkable except as noted in HPI and below Physical Exam Exam Exam: No apparent distress Legally blinf, nonicteric Abdomen soft, nondistended Alert and oriented x3, uses cane (though forgot hers today) Vital Signs: Last Vital Signs Pulse 59 08/08/25 13:03 BP 135/61 08/08/25 13:03 Pulse Ox 96 08/08/25 13:03 Oxygen Delivery Method Room Air 08/08/25 13:03 Assessment & Plan Assessment & Plan (1) Chronic idiopathic constipation: Code(s): K59.04 - Chronic idiopathic constipation Category: Medical (2) Bright red rectal bleeding: Code(s): K62.5 - Hemorrhage of anus and rectum Category: Medical (3) Dyspnea: Code(s): R06.00 - Dyspnea, unspecified Category: Medical Plan Overall assessment consistent with CIC, likely due to lack of dietary fiber, hydration and activity. Rectal bleeding likely 2/2 hemorrhoids. No anemia noted on labs. Pt in considerable distress from abd sx and feeling of icomplete evacuation. [facility] pending from last office visit since PFTs not done. Will get these rebooked. Plan: -Start linzess 145 mcg -Hold miralax and mag supplements unless does not have a BM in 2-3 days with linzess alone -Pt to call office if develops diarrhea with linzess 145, will reduce to 75 mcg -elevated legs while having bowel movement -PFTs to be scheduled -[facility] pending -This will be scheduled after PFTs are done and no actionable finding on those Follow up after colo. Medications: New linaclotide (Linzess) 145 mcg PO DAILY 90 caps 0RF Patient Instructions: - We are going to start you on Linzess once daily. - Please HOLD miralax, magnesium and any other laxatives with this. - If you have no bowel movement on Linzess for 3 days, add back the miralax - Conversely if you have too much diarrhea on Linzess skip a dose and call us to adjust the prescription. Office number is [phone]. - We will also arrange for a colonoscopy after the lung function testing is done Coding Level of Care Code Est Pt Level 4 (49237) Diagnoses Chronic idiopathic constipation K59.04 Bright red rectal bleeding K62.5 Dyspnea R06.00
[2025-08-08 13:03] VITALS: BP 135/61; PULSE 59; O2SAT 96
--- OUTSIDE RECORDS SUMMARY | 2025-08-08 16:00 | XMS_ITS | Encounter Summary ---
Author Organization [employer] Address [address] [facility] [address] [address] [place] [address] Care Team Providers Care Wardrobe Technician Name Role Phone Karina Minor MD Primary Care Provider [phone] Encounter Details Date Type Department Care Team (Late Contact Info) Description 01/19/2023 Orders Only [facility] P[facility] [address] [place] [address] Karina Minor MD [address] [place] [address] Social History Tobacco Use Types Packs/Day Years Used Date Smoking Tobacco: Never Assessed Comments Unknown Sex and Gender Information Value Date Recorded Sex Assigned at Female 08/24/2022 10:21 AM EDT Legal Sex Female 10:21 AM EDT Gender Identity Female 08/24/2022 10:21 AM EDT Sexual Orientation Straight 08/24/2022 10 :21 AM EDT COVID-19 Exposure Response Date Recorded In the last 10 days, have yo u been in contact with someone who was confirmed or suspected to have Coronavirus/COVID-19? No / Unsure 01/08/2023 8:57 AM EDT documented as of this encounter Plan of Treatment Upcoming Encounters Date Type Department Care Team (Late Contact Info) Description 09/04/2025 1:30 PM EST Office Visit [facility] [address] [place] [id number] Angel Alvarez documented as of this encounter Visit Diagnoses Not on filedocumented in this encounter Care Teams Wardrobe Technician Relationship Specialty Start Date End Date Karina Minor MD [address] [place] [id number] PCP - General Family Medicine 11/01/13 documented as of this encounter
--- OUTSIDE RECORDS SUMMARY | 2025-08-08 16:00 | XMS_ITS | Encounter Summary ---
Author Organization [employer] Address [address] 7t [place] [address] Care Team Providers Care Alumni Coordinator Name Role Phone Karina Minor MD Primary Care Provider [phone] Reason for Visit * Reason Onset Date Comments Nurse Triage 04/23/2025 Encounter Details Date Type Department Care Team ([facility] Contact Info) Description 04/23/2025 Telephone [facility] MEDICINE [address] [place] [address] Karina Minor MD [address] [place] [address] Nurse Triage Social History Tobacco Use Types Packs/Day Years Used Date Smoking Tobacco: Never Passive Smoke Exposure: Never Smokeless Tobacco: Never Alcohol Use Standard Drinks/Week Comments Not Currently 0 (1 standard drink = 0.6 oz pur e alcohol) Depression Answer Date Recorded Patient Health Questionnaire-9 Score 6 03/15/2024 Patient Health Questionnaire-9 Score 6 03/15/2024 Last PHQ-9: Questionnaire Data Not on file 0 03/15/2024 Housing Stability Answer Date Recorded What is your housing situation today? I have ranjan phillip 03/07/[address] you li ve. Do you have problems with any of the following? None of the above 03/07/2024 Food Insecurity Answer Date Recorded Within the past 12 months, y ou worried that your food would run out before you got money to buy more: Never True 03/07/2024 Within the past 12 months,th e food you bought just didn't last and you didn't have enough money to get more: Never True Transportation Answer Date Recorded In the past 12 months, has l ack of transportation kept you from medical appts, meetings, work or from getting things needed for daily living? No 03/07/2024 Utilities Answer Date Recorded In the past 12 months, has t he electric, gas, oil or water company threatened to shut off services in your home? No 03/07/2024 Depression Answer Date Recorded Patient Health Questionnaire-2 Score 2 03/15/2024 Comments No Sex and Gender Information Value Date Recorded Sex Assigned at Female 08/24/2022 10:21 AM EDT Legal Sex Female 10:21 AM EDT Gender Identity Female 08/24/2022 10:21 AM EDT Sexual Orientation Straight 08/24/2022 10 :21 AM EDT documented as of this encounter Miscellaneous Notes * Telephone Encounter - Valarie Moore RN - 04/23/2025 10:49 AM EDT Triage call Pt reports constipation. Pt was last seen in OV 04/20/25 for constipation Pt was a dvised to increase fiber in diet , stay active and incresae fluid intake Pt was started on miralax bid. Pt reports only little bits are passed with much straining. Pt reports taking mag citrate 04/20/25 with some stool but much liquid passed. Pt reports Last normal Bowel movement was last month. Pt has been taking adequate liquids and is unable to eat without abdominal pain. Pt is advised to seek evaluation at closest ED. Pt agrees with this disposition and will follow up after ED visit. Protocol Used: Constipation (Adult) Protocol-Based Disposition: Go to Office or Video Visit Now Video visit not offered Positive Triage Questions: * Constant abdominal pain lasting > 2 hours * Constipation persists > 1 week and no improvement after using Care Advice * All higher-acuity triage questions were negative Care Advice Discussed: * Reassurance and Education - Constipation * General Constipation Instructions * High Fiber Diet * Drink Adequate Liquids * Reasons To Call Back - Constipation lasts more than 1 week after using Care Advice - Abdomen swelling, vomiting or fever occur - Constant or increasing abdomen pain - You think you need to be seen - You become worse * Telephone Encounter - Nicole Colon - 04/23/2025 10:27 AM EDT Symptom: Constipation Outcome: Schedule an urgent appointment (within 1 hour) or talk to a nurse or provider soon Reason: Constant stomach pain The caller accepted this outcome. documented in this encounter Plan of Treatment Upcoming Encounters Date Type Department Care Team (Late st Contact Info) Description 09/04/2025 1:30 PM EST Office Visit [facility] ADULT DENTAL [address] [place] [address] Angel Alvarez documented as of this encounter Visit Diagnoses Not on filedocumented in this encounter Additional Health Concerns Assessment Noted Time PHQ-9 Depression Total Score: 6 03/15/20 24 10:13 AM EDT documented as of this encounter Care Teams Alumni Coordinator Relationship Specialty Start Date End Date Karina Minor MD [address] [place] [address] PCP - General Family Medicine 11/01/13 documented as of this encounter
--- OUTSIDE RECORDS SUMMARY | 2025-08-08 16:00 | XMS_ITS | Clinical Summary ---
Author Organization [employer] Address [address] [facility] 7t [place] [address] Care Team Providers Care Butter Liquefier Name Role Phone Karina Minor MD Primary Care Provider [phone] Allergies Active Allergy Reactions Criticality Noted Date Comments Shellfish Allergy Itching 10/26/2023 Medications Estrogens Conjugated (Premarin) 0.625 MG/GM cream Insert into the vagina. 020 Active acetaminophen (Tylenol) 500 MG tablet Take 1 tablet by mouth every 8 (eight) hours. 021 Active fexofenadine (Shannon) 180 MG tablet Take 1 tablet by mouth at bed time. 022 Active Blood Pressure kitIndications: Primary hypertension To check the BP daily 1 kit 024 Active FeroSul 325 (65 Fe) MG tablet TAKE 1 TABLET BY MOUTH EVERY MORNING 90 tablet 1 024 Active budesonide-form oterol (Symbicort) 80-4.5 MCG/ACT inhaler Inhale 2 puffs every 4 (four) hours if needed (wheezing or shortness of breath). Rinse mouth with water after use to reduce aftertaste and incidence of candidiasis. Do not swallow. 1 each 1 025 2025 Active lisinopril (Prinivil) 20 MG tablet Take 1 tablet (20 mg) by mouth Once per day. 90 tablet 3 025 2025 Active docusate sodium (Colace) 100 MG capsule Take 1 tab po bid prn constipation 60 capsule 3 025 Active pravastatin (Pravachol) 40 MG tablet TAKE 1 TABLET(40 MG) BY MOUTH AT BEDTIME 90 tablet 1 025 Active polyethylene glycol, PEG, 3350 (Glycolax) 17 GM/SCOOP powder Take 17 g by mouth 2 times daily. 510 g 2 025 Active polyethylene glycol, PEG, 3350 (MiraLax) 17 GM/SCOOP powder Take 17 g by mouth Once per day. 527 g 2 025 2024 Discontinued polyethylene glycol, PEG, 3350 (Glycolax) 17 GM/SCOOP powder DISSOLVE 17GM INTO LIQUID AND DRINK ONCE A DAY 510 g 2 025 2024 Discontinued(R eorder (will not trigger notification to Pharmacy)) Active Problems Problem Noted Date Diagnosed Date Abdominal pain 10/03/2024 Constipation 10/03/2024 Hypertension 11/01/2013 Hyperlipidemia 08/10/2013 Visual impairment 08/10/2013 Anemia 08/10/2013 Encounters Date Type Department Care Team Description 07/24/2025 10:15 AM EDT Office Visit [facility]ED[facility] [address] [place] [address] Karina Minor MD Primary hypertension (Primary Dx); Mixed hyperlipidemia; Constipation, unspecified constipation type; Blood in stool; Encounter for screening mammogram for breast cancer; Encounter for immunization; Encounter for annual wellness visit 07/24/2025 Travel 07/23/2025 Refill [facility] [address] [place] [address] Karina Minor MD 07/03/2025 Telephone [facility] [address] [place] [address] Karina Minor MD Chart Prep 06/21/[address] [facility] MEDICINE [address] [place] [address] Karina Minor MD from Last 3 Months Immunizations Immunization Administration Dates Next Due Influenza Injectable Quadriv alant Preservative Free IIV4 MDCK 08/16/2022 Influenza injectable quadriv alent IIV4 with preservative 08/04/2016 Influenza injectable quadriv alent preservative free 08/04/2023,07/17/2018,06/15/2017 Influenza, IIV3, injectable 07/15/2021, 4 Influenza, Split (incl. jesica fied surface antigen) 10/13/2013 Influenza, seasonal, injecta ble, preservative free 07/24/2025,07/25/2024 Moderna Covid-19 Vaccine 12+ 10/07/2021 Pfizer Covid-19 Vaccine 12+ 07/25/2024, Pfizer Covid-19 Vaccine 12+ Bivalent 08/16/2022 Tdap 09/27/2024,10/13/2013 Zoster, Recombinant 09/09/2018 Social History Tobacco Use Types Packs/Day Years Used Date Smoking Tobacco: Never Passive Smoke Exposure: Never Smokeless Tobacco: Never Tobacco Cessation:Counseling Given: Not Answered Alcohol Use Standard Drinks/Week Comments Not Currently 0 (1 standard drink = 0.6 oz pur e alcohol) Depression Answer Date Recorded Patient Health Questionnaire-9 Score 6 03/15/2024 Patient Health Questionnaire-9 Score 6 03/15/2024 Last PHQ-9: Questionnaire Data Not on file 0 03/15/2024 Housing Stability Answer Date Recorded What is your housing situation today? I have ranjangiulia phillip 03/07/[address] you [...] Orientation Straight 08/24/2022 10 :21 AM EDT Last Filed Vital Signs Vital Sign Reading Time Taken Comments Blood Pressure 138/88 07/24/2025 10:37 AM EDT Pulse 68 07/24/2025 10:37 AM EDT Temperature 36.9 C (98.4 F) 07/24/2025 10:37 AM EDT Respiratory Rate 20 07/24/2025 10:37 AM EDT Oxygen Saturation 98% 04/17/2025 9:20 AM EDT Inhaled Oxygen Concentration - - Weight 126 kg (277 lb) 07/24/2025 10:37 AM EDT Height 165.1 cm (5' 5 ) 07/24/2025 10:37 AM EDT Body Mass Index 46.1 07/24/2025 10:37 AM EDT Plan of Treatment Upcoming Encounters Date Type Department Care Team (Late st Contact Info) Description 09/04/2025 1:30 PM EST Office Visit [facility] ADULT DENTAL [address] [place] [address] Angel Alvarez Health Maintenance Due Date Last Done Comments CT Colonography 1967 FIT DNA/Cologuard 1967 FIT 1967 FOBT 1967 HIV Screening 1967 Sigmoidoscopy 1967 Disability Screening 1967 Hepatitis C Screening 1985 Hepatitis B Vaccines (1 of 3 - 19+ 3-dose series) 1986 Pap Smear 1988 Pneumococcal Vaccine: 50+ Years (1 of 1 - PCV) 2017 Zoster Vaccines (2 of 2) 11/04/2018 09/09/2018 Cervical Cancer Screening 01/26/2022 HPV/Cotest 01/26/2022 01/26/2017 Mammogram 06/20/2022 06/20/2020, 05/26, 04/06/2018 Dental X-Ray: Full Mouth 09/17/2024 09/16/2021, 09/24 Dental Oral Exam 01/09/2025 07/11/2024, 11/2023, 03/15/2023, Additional history exists Dental Prophylaxis 01/09/2025 07/11/2024, 0 10/26/2023, 03/15/2023, Additional history exists SDOH Screening 03/07/2025 03/07/2024 Depression Screening 03/15/2025 03/15/2024, 03/15/20 Tobacco Screening 07/11/2025 07/11/2024 Dental X-Ray: Bitewings 07/12/2025 07/11/20 24, 03/15/2023, 10/05/2019 Alcohol/Substance Use Screening 09/27/2025 09/27/2024 Colonoscopy 11/09/2027 11/09/2017 Colorectal Cancer Screening 11/09/2027 Lipid Panel 01/19/2028 01/18/2023, 02/10/2022 DTaP/Tdap/Td Vaccines (3 - Td or Tdap) 09/27/2034 09/27/2024, 10/13/2013 RSV Patients and Patients Aged 60 years or older (1 - 1-dose 75+ series) 2042 COVID-19 Vaccine Completed 07/25/2024, 08/2023, 08/16/2022, Additional history exists Influenza Vaccine Completed 07/24/2025, , 08/04/2023, Additional history exists HIB Vaccines Aged Out No longer eligi ble based on patient's age to complete this topic HPV Vaccines Aged Out No longer eligi ble based on patient's age to complete this topic Hepatitis A Vaccines Aged Out No long er eligible based on patient's age to complete this topic IPV Vaccines Aged Out No longer eligi ble based on patient's age to complete this topic Meningococcal B Vaccine Aged Out No l onger eligible based on patient's age to complete this topic Meningococcal Vaccine Aged Out No chris nandini eligible based on patient's age to complete this topic RSV under 20 months Aged Out No longe r eligible based on patient's age to complete this topic Rotavirus Vaccines Aged Out No longer eligible based on patient's age to complete this topic Procedures Procedure Name Priority Date/Time Associated Diagnosis Comments Full PROPHYLAXIS - ADULT Routine 07/11/2024 10:00 AM EDT BITEWINGS - 4 RADIOGRAPHIC IMAGES Routine 07/11/2024 10:00 AM EDT PERIODIC ORAL EVALUATION - ESTABLISHED PATIENT Routine 07/11/2024 10:00 AM EDT LIPID PANEL, STANDARD Routine 01/18/2023 10:17 AM EDT Primary hypertension PANORAMIC RADIOGRAPHIC IMAGE Routine 09/16/2021 12:00 AM EST BI MAMMOGRAM SCREENING BILATERAL Routine 06/20/2020 10:58 AM EDT HM COLONOSCOPY Routine 11/09/2017 [facility] HISTORICAL HPV MRNA E6/E7 Routine 01/26/2017 2:45 PM EDT from Last 3 Months or Most Recently Relevant to Health Maintenance Results * (ABNORMAL) Lipid Panel, Standard (01/18/2023 10:17 AM EDT) Cholesterol, Total 234(H) <200 mg/dL [facility] HDL Cholesterol 50 > OR = 50 mg/dL [facility] Triglycerides 243(H) <150 mg/dL [facility] Comment: If a non-fasting specimen was collected, consider repeat triglyceride testing on a fasting specimen if clinically indicated. Cordell et al. J. of Clin. Lipidol. 2015;9:129-169. LDL Cholesterol 145(H) mg/dL (calc) [facility] Comment: Reference range: <100 Desirable range <100 mg/dL for primary prevention; <70 mg/dL for patients with CHD or diabetic patients with > or = 2 CHD risk factors. LDL-C is now calculated using the Mulugeta-Pavel calculation, which is a validated novel method providing better accuracy than the Friedewald equation in the estimation of LDL-C. Mulugeta FREDERICK et al. SAMIR. 2013;310(19): 2159-4829 (http://education.Briteseed/faq/HMQ532) Chol/HDLC Ratio 4.7 <5.0 (calc) [facility] Non-HDL Cholesterol 184(H) <130 mg/dL (calc) [facility] Comment: For patients with diabetes plus 1 major ASCVD risk factor, treating to a non-HDL-C goal of <100 mg/dL (LDL-C of <70 mg/dL) is considered a therapeutic option. Blood Venous blood specimen / Unknown 01/18/2023 10:17 AM EDT 01/18/2023 10:17 AM EDT Narrative [facility] - 01/19/2023 4:57 AM EDT FASTING:YES FASTING: YES Karina Minor MD LAB BLOOD ORDERABLES Final Resul t [facility] [address], [place] [address] [employer] [address] [place] [address] * 3D DIGITAL BEVERLY SCR MAMMO 1 (06/20/2020 10:58 AM EDT) Anatomical Region Laterality Modality Breast Bilateral Mammography 06/20/2020 10:5 8 AM EDT Narrative 06/20/2020 10:59 AM EDT Refer to the Notes tab for result details [facility] Procedure: 3D DIGITAL BEVERLY SCR MAMMO 1 Procedure Note Provider, Abel, - 01/16/2023 Refer to the Notes tab for result details [facility] Procedure: 3D DIGITAL BEVERLY SCR MAMMO 1 Result [facility] Karina Minor MD IMG BI PROCEDURES Final Result * Hm Colonoscopy (11/09/2017) Pathologist [facility] Colonoscopy Normal Normal Historical Provider HEALTH MAINTENANCE Final Result * HPV mRNA E6/E7 (01/26/2017 2:45 PM EDT) Pathologist [facility] HPV mRNA E6/E7 Not Detected NOT DETECTED [facility] Comment: This test was performed using the APTIMA(R) HPV Assay ([employer] This assay detects E6/E7 viral messenger RNA (mRNA) from 14 high-risk HPV types (16,18,31,33,35,39,45,51, 52,56,58,59,66,68). For additional information please refer to: http://education.[employer]Urban Times/faq/ZTG815n6 (This link is being provided for informational/ educational purposes only.) Test Performed by [employer]Nadya, [employer] Diagnostics [facility], [address] [place] [address] Moreno Nassar M.D., Ph.D., Director of Laboratories , [facility] [id number] Please note: Effective 07/06/2016, HPV testing will be performed using [employer] APTIMA test which targets mRNA. Detecting mRNA instead of DNA, as in older methods, offers significant improvements in specificity. 01/26/2017 2:45 PM EDT Brianna Reyes CNM HISTORICAL/NON ORDERABLE LABS Final Result [facility] Anywhere [address] from Last 3 Months or Most Recently Relevant to Health Maintenance Insurance [facility] ONE CARE < [address] [id number] [facility] Care Teams Butter Liquefier Relationship Specialty Start Date End Date Karina Minor MD [address] [place] [id number] PCP - General Family Medicine 11/01/13
--- OUTSIDE RECORDS SUMMARY | 2025-08-08 16:00 | XMS_ITS | Encounter Summary ---
Author Organization [employer] Address [address] [facility] 7t [place] [address] Care Team Providers Care Acetylene Torch Operator Name Role Phone Karina Minor MD Primary Care Provider [phone] Encounter Details Date Type Department Care Team (Late st Contact Info) Description 12/11/2022 Orders Only [facility] MED & PEDS [address] [place] [address] Marisol Brantley RN [address] [place] [address] Social History Tobacco Use Types Packs/Day Years [...] Description 09/04/2025 1:30 PM EST Office Visit [facility] ADULT DENTAL [address] [place] [address] Angel Alvarez documented as of this encounter Visit Diagnoses Not on filedocumented in this encounter Care Teams Acetylene Torch Operator Relationship Specialty Start Date End Date Karina Minor MD [address] [place] [address] PCP - General Family Medicine 11/01/13 documented as of this encounter
--- OUTSIDE RECORDS SUMMARY | 2025-08-08 16:00 | XMS_ITS | Encounter Summary ---
Author Organization [employer] Address [address] [facility] [address]t [place] [address] Care Team Providers Care Employment Appeals Examiner Name Role Phone Karina Minor MD Primary Care Provider [phone] Encounter Details Date Type Department Care Team (Latest Contact Info) Description 11/10/2019 Abstract [facility] CONVERSIONS Dental, Provider, DDS Social History Tobacco Use Types Packs/Day Years [...] Description 09/04/2025 1:30 PM EST Office Visit [facility] ADULT DENTAL [address] [place] [address] Angel Alvarez documented as of this encounter Visit Diagnoses Not on filedocumented in this encounter Care Teams Employment Appeals Examiner Relationship Specialty Start Date End Date Karina Minor MD [address] [place] [phone] PCP - General Family Medicine 11/01/13 documented as of this encounter
== END 2025-08-08 13:44 | disposition home or self-care (01) ==
LOC: HO.HGI 12:40
PROVIDERS: Visit Provider Internal Medicine
DX: K59.04 Chronic idiopathic constipation (principal); K62.5 Hemorrhage of anus and rectum; R06.00 Dyspnea, unspecified
CPT/HCPCS: 99214

== ENCOUNTER → 2025-08-08 12:39 | Outpatient (BNVA) | payer OTHER, SELFPAY | PROVIDERS: Visit Provider Internal Medicine | DX: K59.04 Chronic idiopathic constipation (principal); K62.5 Hemorrhage of anus and rectum; R06.00 Dyspnea, unspecified | CPT/HCPCS: 99212 ==

== ENCOUNTER 2025-10-11 12:41 | Outpatient (REF) | payer OTHER, SELFPAY ==
--- NOTE | 2025-10-11 12:56 | PFT_ITS ---
Flows: FEV1: 98 % of predicted at 2.57 L FVC: 84 % of predicted at 2.79 L FEV1/FVC: 92 % Bronchodilator response: Absent Volumes: Total lung capacity: 91 % of predicted at 4.83 L Residual volume: 87 % of predicted at 1.53 L Slow vital capacity: 92 % of predicted at 3.30 L Expiratory reserve volume: 15 % of predicted at 0.13 L Diffusion capacity: Normal Impression: No obstructive or restrictive ventilatory defect. No bronchodilator response. Decreased auditory reserve volume suggests extrathoracic restriction likely secondary to abdominal obesity. MTDD
[2025-10-11 13:42] VITALS: PULSE 94
--- OUTSIDE RECORDS SUMMARY | 2025-10-11 16:31 | XMS_ITS | Encounter Summary ---
Author Organization [employer] Address [address] [facility] [address] [place] [address] Care Team Providers Care Project Admin Name Role Phone Karina Minor MD Primary Care Provider [phone] Yolanda Saucdeo CNP Primary Care Provider [phone] Reason for Visit * Reason Onset Date Comments Nurse Triage 04/23/2025 Encounter Details Date Type Department Care Team ([facility] st Contact Info) Description 04/23/2025 Telephone [facility] MEDICINE [address] [place] [address] Karina Minor MD [address] [place] [address] Nurse Triage Social History Tobacco Use Types [...] encounter Miscellaneous Notes * Telephone Encounter - Vaalrie Moore RN - 04/23/2025 10:49 AM EDT Triage call Pt reports constipation. Pt was last seen in OV 04/20/25 for constipation Pt was a dvised to increase fiber in diet , stay active and incresae fluid intake Pt was started on miralax bid. Pt reports only little bits are passed with much straining. Pt reports taking mag citrate 04/20/25 w ith some stool but much liquid passed. Pt reports Last normal Bowel movement was last month. Pt hasbeen taking adequate liquids and is unable to [...] become worse * Telephone Encounter - Nicole Will - 04/23/2025 10:27 AM EDT Symptom: Constipation Outcome: Schedule an urgent appointment (within 1 hour) or talk to a nurse or provider soon Reason: Constant stomach pain The caller accepted this outcome. documented in this encounter Plan of Treatment Upcoming Encounters Date Type Department Care Team (Late st Contact Info) Description 10/22/2025 10:00 AM EST Office Visit [facility] AD[facility] [address] [place] [address] See Feldman, DMD [address] [place] [address] documented as of this encounter Visit Diagnoses Not on filedocumented in this encounter Additional Health Concerns Assessment Noted Time PHQ-9 Depression Total Score: 6 03/15/20 24 10:13 AM EDT documented as of this encounter Care Teams Project Admin Relationship Specialty Start Date End Date Karina Minor MD [address] [place] [id number] PCP - General Family Medicine 11/01/13 08/26/25 Yolanda Saucedo CNP [address] [place] [address] PCP - General Family Medicine 08/27/25 documented as of this encounter
--- OUTSIDE RECORDS SUMMARY | 2025-10-11 16:31 | XMS_ITS | Encounter Summary ---
Author Organization [employer] Address [address] [facility] 7t [place] [address] Care Team Providers Care Teacher'S Assistant Name Role Phone Karina Minor MD Primary Care Provider Yolanda Saucedo CNP Primary Care Provider [phone] Encounter Details Date Type Department Care Team (Late st Contact Info) Description 01/19/2023 Orders Only [facility] [address] [place], [place] [id number] Karina Minor MD [address] [place] [address] Social History Tobacco Use Types Packs/Day Years [...] Description 10/22/2025 10:00 AM EST Office Visit [facility] ADULT DENTAL [address] [place], [place] [phone] See Feldman DMD [address] [place], [place] [phone] documented as of this encounter Visit Diagnoses Not on filedocumented in this encounter Care Teams Teacher'S Assistant Relationship Specialty Start Date End Date Karina Minor MD [address] [place] [id number] PCP - General Family Medicine 11/01/13 08/26/25 Yolanda Saucedo CNP [address] [place] [id number] PCP - General Family Medicine 08/27/25 documented as of this encounter
--- OUTSIDE RECORDS SUMMARY | 2025-10-11 16:31 | XMS_ITS | Data Portability ---
Author Organization [employer] [facility], [employer] [facility] Address [address] [place] [address] Care Team Providers Care Assistant Office Manager Name Role Phone Unavailable OTHER HIM CCA OTHER Assessment Encounter Date Assessment Date Assessment [...] lab - urinalysis w/reflex culture 2021 022 [email or web address] [facility] (Centralized Electronic Ordering - All Locations), Patient Can Go To The Location Of Their Choice, [id number] 11:59:28 urinalysis, dipstick 2021 022 [email or web address] Main - [address], [address] 13:50:22 Referral None recorded. Procedures None recorded. Surgeries None recorded. Imaging None recorded. Medication Orders Macrobid 100 mg capsule 2021 022 [facility][id number], [address], [place], [phone], 13:35:38 Pyridium 100 mg tablet 2021 022 [facility] #[id number], [address], [place], [phone], 13:35:37 Patient TargetsNo targets recorded. Patient InstructionsNo instructions recorded. Reason for Referral None Reported. Results Created Date Observation Date Name Description Value Unit Range Abnormal Flag Note LastModifiedBy Organization Detail LastModifiedTime 12/27/1912/26/2021 urina lysis , dipst ick Leukocytes ++ Not Available Main - [address], [address] 12/26/2021 13:49:58 12/27/1912/26/2021 urina lysis , dipst ick Nitrite negati ve Not Available Main - [address], [address] 12/26/2021 13:49:58 12/27/19 22 12/26/2021 urina lysis , dipst ick Protein 30 Not Available Main - Ins [address], [address] 12/26/2021 13:49:58 12/27/1912/26/2021 urina lysis , dipst ick Blood + Not Available Main - Ins [address], [address] 12/26/2021 13:49:58 12/27/1912/26/2021 urina lysis , dipst ick Specific [place] 1.020 Not Available [facility] - [address], [address] 12/26/2021 13:49:58 Result Notes None recorded. Medical [...] Recorded Heart rate Body temperature Oxygen saturation Systolic And Diastolic Provider Name and Address Organization Details Last Updated DateTime 12/26/2021 94 /min 98 [degF] 96.03 % 156/90 mm[Hg] Keren Chapman MD [address] [place] [address], [place], [address] , [place] - Cycle 2 13:32:35 Date Recorded Oxygen saturation Heart rate Respiratory rate Body temperature Body weight Systolic And Diastolic Provider Name and Address Organization Details Last Updated DateTime 4 98 % 80 /min 16 /min 98.7 [degF] 872579. 76 g 132/84 mm[Hg] Not Available [employer] 4 10:49:22 Social History None recorded. Functional Status None recorded. Mental Status None recorded. Family History Nothing Reported. Medical History No medical history recorded. Gynecological HistoryNo gynecological history recorded. Obstetrics History GPAL:G 0 P 0 0 0 0 Past Encounters Encounter ID Performer Location Encounter Start Date Encounter Closed Date Diagnosis/Indication Diagnosis SNOMED-CT Code Diagnosis ICD10 Code Diagnosis IMO Codes Diagnosis Note [id number] Keren Chapman MD Main - inst[facility] [address] [place] [phone] 12/26/2021 13:01:04 06/11/2022 11:56:35 Urinary tract infectious disease 33210330 N39.0 Prsenting w/ sx UTI, no CVA TTP on assembly lead person exam, does not meet sepsis criteria. Will empiricall y treat for uncomplica josiane UTI and send urine cx, PCP to f/up result and tailor abx if needed. Red flag symptoms reviewed, pt instructed to call 911 if condition worsens or new symptoms develop, [place]. [id number] Meagan Marina MD Main - [facility] [address] [place] [phone] 07/06/2024 10:49:19 07/06/2024 21:39:38 Pain in throat 788253325 R07.0 Health Concerns Section Related Observation LastModified by Organization Detai ls LastModified Time None Recorded Concern Status LastModified by Organization Details LastModified Time None Recorded Advance Directives Directive None Recorded Payers Insurance Date Sequence Insurance Name Policy Number Policy Vazquez Covered Member ID Vazquez Member ID Guarantor Name 07/06/2024 1 [facility] - DOS PRIOR TO 2023 - DUAL ELIGIBLE (MEDICARE REPLACEMENT/AD VANTAGE - HMO) Radha Miller [id number] Radha Miller 2025 1 [facility] - DOS ON OR AFTER 2023 - DUAL ELIGIBLE - SKILLED NURSING OPTIONS AND ONE CARE (MEDICARE REPLACEMENT/AD VANTAGE - HMO) Radha Miller [id number] Radha Miller Notes Date Note Type Note Provider Name and Address Organization Details Recorded Time 12/26/2021 text/html Per request: UTI symptoms Per assembly lead person documentation: Evaluated pt c/o x2 weeks or [...] trace blood, protein 30, SG 1.020. Consulted [facility] who [place] order scripts to pt's pharmacy [...] sg 1.020 protein 30 Keren Chapman MD [address], [place], [address], [employer] 12/26/2021 13:59:51 07/06/2024 text/html HPI: Triage call reporting no improvement since seen at local [facility] for sore throat. Continues with pain and [...] .................. .................. .................. .................. .................. .................. ............... Manager Sales And Marketing Note From Ernie Ivy: Pt co lump in throat. Sts gets scratchy after talking for awhile. Sts doesn t hurt to swallow is able to eat and drink. Denies fever cp sob NC abdominal pain, NVD. Pt was seen by and tested for strep RSv and Covid and all negative findings. Pt sts she feels ok. Denies chills body aches. Baseline vitals WNL. Throat appears normal in color. Afebrile, lungs clear. [facility] contacted and advised pt to make appointment with pcp for imagining. Pt education on signs indicating the ER. Consent sent via email. .................. .................. .................. .................. .................. .................. .................. ............... Disposition: Jamila Marina MD [address], [place], [address], [address] [employer] 07/06/2024 13:49:07 OBGyn Episode No OBEpisode recorded.
--- OUTSIDE RECORDS SUMMARY | 2025-10-11 16:31 | XMS_ITS | Clinical Summary ---
Author Organization [employer] Address [address] [facility] 7t [place] [address] Care Team Providers Care Risk Investigator Name Role Phone Yolanda Saucedo CNP Primary Care Provider [phone] Allergies Active Allergy Reactions Criticality Noted Date Comments Shellfish Allergy Itching 10/26/2023 Medications * This document contains information received from the source organization and may not represent a complete record from that organization. Estrogens Conjugated (Premarin) 0.625 MG/GM cream Insert into the vagina. 020 Active acetaminophen (Tylenol) 500 MG tablet Take 1 tablet by mouth every 8 (eight) hours. 021 Active fexofenadine (Shannon) 180 MG tablet Take 1 tablet by mouth at bed time. 022 Active Blood Pressure kitIndications: Primary hypertension To check the BP daily 1 kit 024 Active budesonide-form oterol (Symbicort) 80-4.5 MCG/ACT [...] AT BEDTIME 90 tablet 1 025 Active Linzess 145 MCG capsule Take 1 capsule by mouth Once per day. 025 Active Sodium Fluoride 1.1 % creamIndication s:Dental caries Copake teeth for 2 minutes, morning and night. Spit, do not rinse. Do not eat or drink anything for 30 minutes following use. 112 g 3 025 Active FeroSul 325 (65 Fe) MG tablet TAKE 1 TABLET BY MOUTH EVERY MORNING 90 tablet 1 025 Active polyethylene glycol, PEG, 3350 (Glycolax) 17 GM/SCOOP powder Take 17 g by mouth 2 times daily. 510 g 2 025 Active FeroSul 325 (65 Fe) MG tablet TAKE 1 TABLET BY MOUTH EVERY MORNING 90 tablet 1 024 2024 Discontinued(R eorder (will not trigger notification to Pharmacy)) polyethylene glycol, PEG, 3350 (Glycolax) 17 GM/SCOOP powder Take 17 g by mouth 2 times daily. 510 g 2 025 2024 Discontinued(R eorder (will not trigger notification to Pharmacy)) Active Problems Problem Noted Date Diagnosed Date Abdominal pain 10/03/2024 Constipation 10/03/2024 Hypertension 11/01/2013 Hyperlipidemia 08/10/2013 Visual impairment 08/10/2013 Anemia 08/10/2013 Encounters * This document contains information received from the source organization and may not represent a complete record from that organization. Date Type Department Care Team Description 10/04/2025 Refill [facility] PEDS [address] [place] [address] Yolanda Saucedo CNP 09/24/2025 10:00 AM EST Office Visit [facility] ADULT DENTAL [address] [place] [address] See Feldman DMD Dental caries (Primary Dx); Fractured dental presybeterian with loss of material 09/21/2025 Refill [facility] [address] [place] [address] Karina Minor MD 09/04/2025 1:30 PM EST Office Visit [facility] ADULT DENTAL [address] [place] [address] Angel Alvarez Dental calculus (Primary Dx); Fractured dental presybeterian with loss of material; Partial edentulism, class III; Dental caries 07/24/2025 10:15 AM EDT Office Visit [facility] [address] [place] [address] Karina Minor MD Primary hypertension (Primary Dx); Mixed hyperlipidemia; Constipation, unspecified constipation type; Blood in stool; Encounter for screening mammogram for breast cancer; Encounter for immunization; Encounter for annual wellness visit 07/24/2025 Travel 07/23/2025 Refill [facility] [address] [place] [address] Karina Minor MD from Last 3 Months [...] Sign Reading Time Taken Comments Blood Pressure 136/80 09/24/2025 9:56 AM EST Pulse 70 09/04/2025 1:25 PM EST Temperature 36.9 C (98.4 F) 07/24/2025 10:37 [...] Description 10/22/2025 10:00 AM EST Office Visit [facility] ADULT DENTAL [address] [place] [address] See Feldman, GAGE [address] [place] [address] Health Maintenance Due Date Last Done Comments CT Colonography 1967 FIT DNA/Cologuard 1967 FIT 1967 FOBT 1967 HIV Screening 1967 Sigmoidoscopy 1967 Disability Screening 1967 Alcohol/Substance Use Screening 1979 Hepatitis C Screening 1985 Hepatitis B Vaccines (1 of 3 - 19+ 3-dose series) 1986 Pap Smear 1988 Pneumococcal Vaccine: 50+ Years (1 of 1 - PCV) 2017 RSV Patients and Patients Aged 60 years or older (1 - Risk 50-74 years 1-dose series) 2017 Zoster Vaccines (2 of 2) 11/04/2018 09/09/2018 Cervical Cancer Screening 01/26/2022 HPV/Cotest 01/26/2022 01/26/2017 Mammogram 06/20/2022 06/20/2020, 05/26, 04/06/2018 SDOH Screening 03/07/2025 03/07/2024 Depression Screening 03/15/2025 03/15/2024, 03/15/20 24 COVID-19 Vaccine ( season) 2025 07/25/2024, 08/04/2023, 08/16/2022, Additional history exists Dental Oral Exam 03/05/2026 09/04/2025, , 10/26/2023, Additional history exists Dental Prophylaxis 03/05/2026 09/04/2025, 0 07/11/2024, 10/26/2023, Additional history exists Dental X-Ray: Bitewings 09/05/2026 09/04/20 25, 07/11/2024, 03/15/2023, Additional history exists Tobacco Screening 09/24/2026 09/24/2025 Colonoscopy 11/09/2027 11/09/2017 Colorectal Cancer Screening 11/09/2027 Lipid Panel 01/19/2028 01/18/2023, 02/10/2022 Dental X-Ray: Full Mouth 09/05/2028 025, 09/16/2021, 10/05/2019 DTaP/Tdap/Td Vaccines (3 - Td or Tdap) 09/27/2034 09/27/2024, 10/13/2013 Influenza Vaccine Completed 07/24/2025, , 08/04/2023, Additional [...] Procedure Name Priority Date/Time Associated Diagnosis Comments CASE PRESENTATION, DETAILED AND EXTENSIVE TREATMENT PLANNING Routine 09/24/2025 10:00 AM EST Fractured dental presybeterian with loss of material Dental caries 18 MOL RESIN-BASED COMPOSITE - 3 SURF, POSTERIOR Routine 09/24/2025 10:00 AM EST Fractured dental presybeterian with loss of material Dental caries 19 DO RESIN-BASED COMPOSITE - 2 SURF, POSTERIOR Routine 09/24/2025 10:00 AM EST Fractured dental presybeterian with loss of material Dental caries PERIODIC ORAL EVALUATION - ESTABLISHED PATIENT Routine 09/04/2025 1:30 PM EST Fractured dental presybeterian with loss of material Partial edentulism, class III CASE PRESENTATION, DETAILED AND EXTENSIVE TREATMENT PLANNING Routine 09/04/2025 1:30 PM EST Fractured dental presybeterian with loss of material Partial edentulism, class III ORAL HYGIENE INSTRUCTIONS Routine 09/04/2025 1:30 PM EST Fractured dental presybeterian with loss of material Partial edentulism, class III PROPHYLAXIS - ADULT Routine 09/04/2025 1 :30 PM EST Fractured dental presybeterian with loss of material Partial edentulism, class III INTRAORAL - COMPLETE SERIES OF RADIOGRAPHIC IMAGES Routine 09/04/2025 1:30 PM EST Fractured dental presybeterian with loss of material Partial edentulism, class III LIPID PANEL, STANDARD Routine 01/18/2023 10:17 AM EDT Primary hypertension BI MAMMOGRAM SCREENING BILATERAL Routine 06/20/2020 10:58 AM EDT HM COLONOSCOPY Routine 11/09/2017 ZZZ HISTORICAL HPV MRNA E6/E7 Routine 01/26/2017 2:45 PM EDT from Last 3 Months or Most Recently Relevant to Health Maintenance Results * (ABNORMAL) Lipid Panel, Standard (01/18/2023 10:17 AM EDT) Pathologist [facility] Cholesterol, Total 234(H) <200 mg/dL [employer] HDL Cholesterol 50 > OR = 50 mg/dL [employer] [place] [employer] Triglycerides 243(H) <150 mg/dL [employer] Comment: If a non-fasting specimen was collected, consider repeat triglyceride testing on a fasting specimen if clinically indicated. Cordell et al. J. of Clin. Lipidol. 2015;9:129-169. LDL Cholesterol 145(H) mg/dL (calc) [employer] Comment: Reference range: <100 Desirable range <100 mg/dL for primary prevention; <70 mg/dL for patients with CHD or diabetic patients with > or = 2 CHD risk factors. LDL-C is now calculated using the Mulugeta-Pavel calculation, which is a validated novel method providing better accuracy than the Friedewald equation in the estimation of LDL-C. Mulugeta SS et al. SAMIR. 2013;310(19): 1378-4127 (http://education.Focus/faq/ODP608) Chol/HDLC Ratio 4.7 <5.0 (calc) [employer] Non-HDL Cholesterol 184(H) <130 mg/dL (calc) [employer] Comment: For patients with diabetes plus 1 major ASCVD risk factor, treating to a non-HDL-C goal of <100 mg/dL (LDL-C of <70 mg/dL) is considered a therapeutic option. Blood Venous blood specimen / Unknown 01/18/2023 10:17 AM EDT 01/18/2023 10:17 AM EDT Narrative [facility] - 01/19/2023 4:57 AM EDT FASTING:YES FASTING: YES Karina Minor MD LAB BLOOD ORDERABLES Final Resul t [facility] [address] [facility], [facility], [place] [address] [facility] [facility] [address] [place] [address] * 3D DIGITAL BEVERLY SCR MAMMO 1 [...] Procedure: 3D DIGITAL BEVERLY SCR MAMMO 1 Karina Minor MD IMG BI PROCEDURES Final Result * Hm Colonoscopy (11/09/2017) Pathologist [facility] Colonoscopy Normal Normal Historical Provider HEALTH MAINTENANCE Final Result * HPV mRNA E6/E7 (01/26/2017 2:45 PM EDT) HPV mRNA E6/E7 Not Detected NOT DETECTED [facility] Comment: This test was performed using the APTIMA(R) HPV Assay ([employer] This assay detects E6/E7 viral messenger RNA (mRNA) from 14 high-risk HPV types (16,18,31,33,35,39,45,51, 52,56,58,59,66,68). For additional information please refer to: http://education.[employer]/faq/MTQ956j0 (This link is being provided for informational/ educational purposes only.) Test Performed by [employer], [employer] [facility], [address] [place] [address] Moreno Nassar M.D., Ph.D., Director of Laboratories , [facility] [id number] Please note: Effective 07/06/2016, HPV testing will be performed using [employer]'s APTIMA test which targets mRNA. Detecting mRNA instead of DNA, as in older methods, offers significant improvements in specificity. 01/26/2017 2:45 PM EDT us Brianna Reyes CNM HISTORICAL/NON ORDERABLE LABS Final Result [facility] [address] from Last 3 Months or Most Recently Relevant to Health Maintenance Insurance [facility] < [address] [facility] Care Teams Risk Investigator Relationship Specialty Start Date End Date Yolanda Saucedo CNP [address] [place] [address] PCP - General Family Medicine 08/27/25
--- OUTSIDE RECORDS SUMMARY | 2025-10-11 16:31 | XMS_ITS | Encounter Summary ---
Author Organization [employer] Address [address] [facility] 7t [place] [address] Care Team Providers Care Gang Miner Name Role Phone Karina Minor MD Primary Care Provider [phone] Yolanda Saucedo CNP Primary Care Provider [phone] Encounter Details Date Type Department Care Team (Late Contact Info) Description 12/11/2022 Orders Only [facility] [address] [place], [place] [id number] Marisol Brantley RN Social History Tobacco Use Types Packs/Day Years [...] Department Care Team (Late Contact Info) Description 10/22/2025 10:00 AM EST Office Visit [facility] ADULT DENTAL [address] [place] [address] See Feldman, DMD [address] [place] [address] documented as of this encounter Visit Diagnoses Not on filedocumented in this encounter Care Teams Gang Miner Relationship Specialty Start Date End Date Karina Minor MD [address] [place] [address] PCP - General Family Medicine 11/01/13 08/26/25 Yolanda Saucedo CNP [address] [place] [address] PCP - General Family Medicine 08/27/25 documented as of this encounter
--- OUTSIDE RECORDS SUMMARY | 2025-10-11 16:31 | XMS_ITS | Encounter Summary ---
Author Organization [employer] Address [address] [facility] 7t [place] [address] Care Team Providers Care Laboratory Worker Name Role Phone Karina Minor MD Primary Care Provider Yolanda Saucedo CNP Primary Care Provider [phone] Encounter Details Date Type Department Care Team (Latest Contact Info) Description 11/10/2019 Abstract [facility] CONVERSIONS Dental, Provider, DDS Social History [...] Description 10/22/2025 10:00 AM EST Office Visit [facility] ADULT DENTAL [address] [place] [address] See Feldman, DMD [address] [place] [address] documented as of this encounter Visit Diagnoses Not on filedocumented in this encounter Care Teams Laboratory Worker Relationship Specialty Start Date End Date Karina Minor MD [address] [place] [address] PCP - General Family Medicine 11/01/13 08/26/25 Yolanda Saucedo CNP [address] [place], [place] [address] [address] PCP - General Family Medicine 08/27/25 documented as of this encounter
== END 2025-10-11 12:42 | disposition home or self-care (01) ==
LOC: HO.RESP 12:41
PROVIDERS: PCP Student in an Organized Health Care Education/Training Program; Visit Provider Internal Medicine
DX: R06.00 Dyspnea, unspecified (principal)
CPT/HCPCS: 94060; 94640; 94727; 94729

== ENCOUNTER → 2025-10-11 12:56 | Outpatient (BNV) | payer OTHER, SELFPAY | PROVIDERS: PCP Student in an Organized Health Care Education/Training Program; Visit Provider Internal Medicine Pulmonary Disease | DX: R06.00 Dyspnea, unspecified (principal) | CPT/HCPCS: 94060; 94727; 94729 ==

== ENCOUNTER 2025-10-12 13:55 | Outpatient (REF) | payer OTHER, SELFPAY ==
--- NOTE | ~2025-10-12 | MM_ITS ---
EXAMINATION: MM SCREENING DIGITAL BREAST TOMOSYNTHESIS, BILATERAL CLINICAL INFORMATION: Screening. Asymptomatic. COMPARISON: Mammography: Comparison is made with available priors TECHNIQUE: Digital breast mammography with tomosynthesis is performed in both the craniocaudal and mediolateral oblique views along with computer-aided detection (CAD). FINDINGS: There are scattered areas of fibroglandular density. Bilateral asymmetries are stable. There are no significant masses, abnormal calcifications, or other abnormalities. MM/MM tomosynthesis screening BI IMPRESSION: No mammographic evidence of malignancy. ASSESSMENT: BI-RADS Category 2: Benign RECOMMENDATION: Routine annual mammography screening. 1 year F/U This examination should not preclude the clinical evaluation of a suspicious palpable abnormality. This patient's information was entered into a reminder system with a target due date for their next mammogram. Electronically signed by: Bev Moore DO 10/16/2025 04:25 PM LIZ
--- OUTSIDE RECORDS SUMMARY | 2025-10-12 15:36 | XMS_ITS | Encounter Summary ---
Author Organization [employer] Address [address] [facility] 7t [place] [address] Care Team Providers Care Digital Archivist Name Role Phone Karina Minor MD Primary Care Provider [phone] Yolanda Saucedo CNP Primary Care Provider [phone] Encounter Details Date Type Department Care Team (Late Contact Info) Description 12/11/2022 Orders Only [facility] MED & PEDS [address] [place], [place] [phone] Marisol Brantley RN Social History Tobacco Use [...] Description 10/22/2025 10:00 AM EST Office Visit [facility] ADULT DENTAL [address] [place] [address] See Feldman, DMD [address] [place] [address] documented as of this encounter Visit Diagnoses Not on filedocumented in this encounter Care Teams Digital Archivist Relationship Specialty Start Date End Date Karina Minor MD [address] [place] [address] PCP - General Family Medicine 11/01/13 08/26/25 Yolanda Saucedo CNP [address] [place] [address] PCP - General Family Medicine 08/27/25 documented as of this encounter
--- OUTSIDE RECORDS SUMMARY | 2025-10-12 15:36 | XMS_ITS | Encounter Summary ---
Author Organization [employer] Address [address] [facility] 7t [place] [address] Care Team Providers Care Facilities Operator Name Role Phone Karina Minor MD Primary Care Provider [phone] Yolanda Saucedo CNP Primary Care Provider [phone] Encounter Details Date Type Department Care Team (Latest Contact Info) Description 11/10/2019 Abstract [facility] CONVERSIONS Dental, Provider, DDS Social History [...] Description 10/22/2025 10:00 AM EST Office Visit [facility] ADULT DENTAL [address] [place] [address] See Feldman, DMD [address] [place] [address] documented as of this encounter Visit Diagnoses Not on filedocumented in this encounter Care Teams Facilities Operator Relationship Specialty Start Date End Date Karina Minor MD [address] [place] [address] PCP - General Family Medicine 11/01/13 08/26/25 Yolanda Saucedo CNP [address] [place], [place] [address] [address] PCP - General Family Medicine 08/27/25 documented as of this encounter
--- OUTSIDE RECORDS SUMMARY | 2025-10-12 15:36 | XMS_ITS | Encounter Summary ---
Author Organization [employer] Address [address] [facility] [address] [place] [address] Care Team Providers Care Torpedo Shooter Name Role Phone Karina Minor MD Primary Care Provider [phone] Yolanda Saucedo CNP Primary Care Provider [phone] Reason for Visit * Reason Onset Date Comments Nurse Triage 04/23/2025 Encounter Details Date Type Department Care Team ([facility] st Contact Info) Description 04/23/2025 Telephone [facility] MED[facility]INE [address] [place] [address] Karina Minor MD [address] [place] [address] Nurse Triage Social History Tobacco Use Types [...] [facility] ADULT DENTAL [address] [place] [address] See Feldman, DMD [address] [place] [address] documented as of this encounter Visit Diagnoses Not on filedocumented in this encounter Additional Health Concerns Assessment Noted Time PHQ-9 Depression Total Score: 6 03/15/20 24 10:13 AM EDT documented as of this encounter Care Teams Torpedo Shooter Relationship Specialty Start Date End Date Karina Minor MD [address] [place] [address] PCP - General Family Medicine 11/01/13 08/26/25 Yolanda Saucedo CNP [address] [place] [address] PCP - General Family Medicine 08/27/25 documented as of this encounter
--- OUTSIDE RECORDS SUMMARY | 2025-10-12 15:36 | XMS_ITS | Clinical Summary ---
Author Organization [email or web address] Address [address] [facility] 7t [place] [address] Care Team Providers Care Mobile Health Vehicle Operator Name Role Phone Yolanda Saucedo CNP Primary Care Provider [phone] Allergies Active Allergy Reactions Criticality Noted Date [...] Sodium Fluoride 1.1 % creamIndication s:Dental caries [place] teeth for 2 minutes, morning and night. [...] Type Department Care Team Description 10/04/2025 Refill [facility] [address] [place] [address] Yolanda Saucedo CNP 09/24/2025 10:00 AM EST Office Visit [facility]ULT [facility] [address] [place] [address] See Feldman DMD Dental caries (Primary Dx); Fractured dental gnosticism with loss of material 09/21/2025 Refill [facility] [address] [place] [address] Karina Minor MD 09/04/2025 1:30 PM EST Office Visit [facility] [address] [place] [address] Angel Alvarez Dental calculus (Primary Dx); Fractured dental gnosticism with loss of material; Partial edentulism, class III; Dental caries 07/24/2025 10:15 AM EDT Office Visit [facility] [address] [place] [address] Karina Minro MD Primary hypertension (Primary Dx); Mixed hyperlipidemia; Constipation, unspecified constipation type; Blood in stool; Encounter for screening mammogram for breast cancer; Encounter for immunization; Encounter for annual wellness visit 07/24/2025 Travel 07/23/2025 Refill [facility] [address] [place] [address] Karina Minor MD from Last 3 Months [...] Description 10/22/2025 10:00 AM EST Office Visit [facility] ADULT DENTAL [address] [place] [address] See Feldman, GAGE [address] [place] [address] Health Maintenance Due Date Last Done Comments [...] Routine 09/24/2025 10:00 AM EST Fractured dental gnosticism with loss of material Dental caries 18 MOL RESIN-BASED COMPOSITE - 3 SURF, POSTERIOR Routine 09/24/2025 10:00 AM EST Fractured dental gnosticism with loss of material Dental caries 19 DO RESIN-BASED COMPOSITE - 2 SURF, POSTERIOR Routine 09/24/2025 10:00 AM EST Fractured dental gnosticism with loss of material Dental caries PERIODIC ORAL EVALUATION - ESTABLISHED PATIENT Routine 09/04/2025 1:30 PM EST Fractured dental gnosticism with loss of material Partial edentulism, class III CASE PRESENTATION, DETAILED AND EXTENSIVE TREATMENT PLANNING Routine 09/04/2025 1:30 PM EST Fractured dental gnosticism with loss of material Partial edentulism, class III ORAL HYGIENE INSTRUCTIONS Routine 09/04/2025 1:30 PM EST Fractured dental gnosticism with loss of material Partial edentulism, class III PROPHYLAXIS - ADULT Routine 09/04/2025 1 :30 PM EST Fractured dental gnosticism with loss of material Partial edentulism, class III INTRAORAL - COMPLETE SERIES OF RADIOGRAPHIC IMAGES Routine 09/04/2025 1:30 PM EST Fractured dental gnosticism with loss of material Partial edentulism, class [...] Emergency Department Cholesterol, Total 234(H) <200 mg/dL [facility] HDL Cholesterol 50 > OR = 50 mg/dL [facility] [place] [facility] Triglycerides 243(H) <150 mg/dL [facility] Comment: If a non-fasting specimen was collected, consider repeat triglyceride testing on a fasting specimen if clinically indicated. Cordell et al. J. of Clin. Lipidol. 2015;9:129-169. LDL Cholesterol 145(H) mg/dL (calc) [facility] Comment: Reference range: <100 Desirable range <100 mg/dL for primary prevention; <70 mg/dL for patients with CHD or diabetic patients with > or = 2 CHD risk factors. LDL-C is now calculated using the Mulugeta-Pavel calculation, which is a validated novel method providing better accuracy than the Friedewald equation in the estimation of LDL-C. Mulugeta SS et al. SAMIR. 2013;310(19): 9748-7691 (http://education.Camero/faq/WMA900) Chol/HDLC Ratio 4.7 <5.0 (calc) [facility] Non-HDL Cholesterol 184(H) <130 mg/dL (calc) [facility] Comment: For patients with diabetes plus 1 major ASCVD risk factor, treating to a non-HDL-C goal of <100 mg/dL (LDL-C of <70 mg/dL) is considered a therapeutic option. Blood Venous blood specimen / Unknown 01/18/2023 10:17 AM EDT 01/18/2023 10:17 AM EDT Narrative [facility] - 01/19/2023 4:57 AM EDT FASTING:YES FASTING: YES Karina Minor MD LAB BLOOD ORDERABLES Final Resul t [facility] [address] [facility], [place] [address] [facility] [address] [place] [address] * 3D DIGITAL BEVERLY SCR MAMMO 1 [...] HPV mRNA E6/E7 Not Detected NOT DETECTED [facility] Comment: This test was performed using the APTIMA(R) HPV Assay ([employer] This assay detects E6/E7 viral messenger RNA (mRNA) from 14 high-risk HPV types (16,18,31,33,35,39,45,51, 52,56,58,59,66,68). For additional information please refer to: http://education.ViFlux/faq/GZY752o4 (This link is being provided for informational/ educational purposes only.) Test Performed by [facility], [facility], [address] [place] [address] Moreno Nassar M.D., Ph.D., Director of Laboratories , [facility] [id number] Please note: Effective 07/06/2016, HPV testing will be performed using [employer]'s APTIMA test which targets mRNA. Detecting mRNA instead of DNA, as in older methods, offers significant improvements in specificity. 01/26/2017 2:45 PM EDT us Brianna Reyes CNM HISTORICAL/NON ORDERABLE LABS Final Result [facility] Anywhere [address] from Last 3 Months or Most Recently Relevant to Health Maintenance Insurance [facility] < 65 [facility] Care Teams Mobile Health Vehicle Operator Relationship Specialty Start Date End Date Yolanda Saucedo CNP [address] [place] [address] PCP - General Family Medicine 08/27/25
--- OUTSIDE RECORDS SUMMARY | 2025-10-12 15:36 | XMS_ITS | Encounter Summary ---
Author Organization [employer] Address [address] [facility] 7t [place] [address] Care Team Providers Care Upholstery Department Supervisor Name Role Phone Karina Minor MD Primary Care Provider [phone] Yolanda Saucedo CNP Primary Care Provider [phone] Encounter Details Date Type Department Care Team (Late st Contact Info) Description 01/19/2023 Orders Only [facility] [address] [place], [place] [phone] Karina Minor MD [address] [place] [address] Social History Tobacco Use Types Packs/Day Years [...] Description 10/22/2025 10:00 AM EST Office Visit [facility] ADULT DENTAL [address] [place], [place] [phone] See Feldman DMD [address] [place], [place] [phone] documented as of this encounter Visit Diagnoses Not on filedocumented in this encounter Care Teams Upholstery Department Supervisor Relationship Specialty Start Date End Date Karina Minor MD [address] [place] [address] PCP - General Family Medicine 11/01/13 08/26/25 Yolanda Saucedo CNP [address] [place] [address] PCP - General Family Medicine 08/27/25 documented as of this encounter
== END 2025-10-12 13:56 | disposition home or self-care (01) ==
LOC: HO.MAMMO 13:55
PROVIDERS: Visit Provider Student in an Organized Health Care Education/Training Program
DX: Z12.31 Encounter for screening mammogram for malignant neoplasm of breast (principal)
CPT/HCPCS: 77063; 77067

== ENCOUNTER → 2025-10-12 14:30 | Outpatient (BNV) | payer OTHER, SELFPAY | PROVIDERS: Visit Provider Internal Medicine | DX: Z12.31 Encounter for screening mammogram for malignant neoplasm of breast (principal) | CPT/HCPCS: 77063; 77067 ==

== ENCOUNTER 2025-10-22 11:02 | Outpatient (REF) | payer OTHER, SELFPAY ==
--- OUTSIDE RECORDS SUMMARY | 2025-10-22 10:00 | XMS_ITS | Encounter Summary ---
Author Organization [employer] Address [address] [facility] [address] 7t [place] [address] Care Team Providers Care Wallpaper Cleaner Name Role Phone Yolanda Saucedo CNP Primary Care Provider [phone] Reason for Visit * Reason Comments Filling Encounter Details Date Type Department Care Team ([facility] Contact Info) Description 10/22/2025 10:00 AM EST Office Visit [facility] CHC ADULT DENTAL [address] [place], [place] [phone] See Feldman, DMD [address] [place] [address] Dental caries (Primary Dx) Social History Tobacco Use Types Packs/Day Years [...] AM EDT documented as of this encounter Last Filed Vital Signs Vital Sign Reading Time Taken Comments Blood Pressure 136/80 10/22/2025 10:12 AM EST Pulse - - Temperature - - Respiratory Rate - - Oxygen Saturation - - Inhaled Oxygen Concentration - - Weight - - Height - - Body Mass Index - - documented in this encounter Progress Notes * See Feldman DMD - 10/22/2025 10:00 AM EST Patient ID: Radha Miller is a 60 y.o. female. Time Out: Timeout Date: 10/22/25, Timeout Time: 1026 ( and last name verified/ fillings) Location: [facility] Tooth: #4 Procedure: Jewish Verified the above with patient, assistant bookkeeper, and provider. Confirmed via patient's chart, intraorally and by radiographs. Sand Operator: not applicable Chief Complaint Patient presents with Filling Medical Hx: Vitals: Blood pressure 136/80. Medications, Med Hx reviewed with patient and updated in chart. Consent Obtained: The risks, benefits, indications, potential complications, and alternatives were explained to the patient and informed consent was obtained with good understanding. Treatment Provided: Dental procedures in this visit D2392 - RESIN-BASED COMPOSITE - 2 SURF, POSTERIOR 4 DO (Completed) Service provider: See Feldman DMD Billing provider: See Feldman DMD D9450 - CASE PRESENTATION, DETAILED AND EXTENSIVE TREATMENT PLANNING (Completed) Service provider: See Feldman DMD Billing provider: See Feldman DMD Diagnosis: #4-DO primary caries into dentin Pt asymptomatic Topical: 20% Benzocaine Anesthesia: 4% Septocaine (Articaine) w/ 1:200,000 epinephrine Number of Cartridges: 0.5 Injection Type: Buccal infiltration Confirmed profound anesthesia. Isolation: cotton rolls and high speed suction Prep: All caries removed and Preparation finalized Matrix: Sectional Matrix and wedge Etch: 37% Phosphoric Acid Etch Desensitizer: Gluma Liner/Base: None Soto: I-Soto Jewish Material: Voco Grandioso Packable Shade: A3 Polished. Occlusion & contacts verified. Patient satisfied with comfort and esthetics. Patient tolerated procedure well. Post-operative instructions were given. Patient departed alert, oriented, and in stable condition. NV: #31 crown prep and #T-MO Jointer Machine: Abbie Campbell Dentist: See Feldman DMD documented in this encounter Plan of Treatment Upcoming Encounters Date Type Department Care Team (Late st Contact Info) Description 11/16/2025 1:00 PM EST Office Visit [facility] ADULT DENTAL [address] [place] [address] See Feldman DMD [address] [place] [address] documented as of this encounter Procedures Procedure Name Priority Date/Time Associated Diagnosis Comments 4 DO RESIN-BASED COMPOSITE - 2 SURF, POSTERIOR Routine 10/22/2025 10:00 AM EST Dental caries CASE PRESENTATION, DETAILED AND EXTENSIVE TREATMENT PLANNING Routine 10/22/2025 10:00 AM EST Dental caries documented in this encounter Visit Diagnoses Diagnosis Dental caries- Primary Unspecified dental caries documented in this encounter Additional Health Concerns Assessment Noted Time PHQ-9 Depression Total Score: 6 03/15/20 24 10:13 AM EDT documented as of this encounter Care Teams Wallpaper Cleaner Relationship Specialty Start Date End Date Yolanda Saucedo CNP [address] [place] [address] PCP - General Family Medicine 08/27/25 documented as of this encounter
--- OUTSIDE RECORDS SUMMARY | 2025-10-22 12:56 | XMS_ITS | Encounter Summary ---
Author Organization [employer] Address [address] [facility] 7t [place] [address] Care Team Providers Care Claims Attorney Name Role Phone Karina Minor MD Primary Care Provider [phone] Yolanda Saucedo CNP Primary Care Provider [phone] Encounter Details Date Type Department Care Team (Latest Contact Info) Description 11/10/2019 Abstract [facility] CONVERSIONS Dental, Provider, DDS Social History [...] Description 11/16/2025 1:00 PM EST Office Visit [facility] CHC ADULT DENTAL [address] [place] [address] See Feldman, DMD [address] [place] [address] documented as of this encounter Visit Diagnoses Not on filedocumented in this encounter Care Teams Claims Attorney Relationship Specialty Start Date End Date Karina Minor MD [address] [place] [address] PCP - General Family Medicine 11/01/13 08/26/25 Yolanda Saucedo CNP [address] [place] [address] [address] PCP - General Family Medicine 08/27/25 documented as of this encounter
--- OUTSIDE RECORDS SUMMARY | 2025-10-22 12:56 | XMS_ITS | Encounter Summary ---
Author Organization [employer] Address [address] [facility] [address] 7[address] [place] [address] Care Team Providers Care Staff Command And Control Officer Name Role Phone Karina Minor MD Primary Care Provider [phone] Yolanda Saucedo CNP Primary Care Provider [phone] Reason for Visit * Reason Onset Date Comments Nurse Triage 04/23/2025 Encounter Details Date Type Department Care Team ([facility] st Contact Info) Description 04/23/2025 Telephone [facility] MED[facility] [address] [place] [address] Karina Minor MD [address] [place] [address] Nurse Triage Social History Tobacco Use Types [...] Description 11/16/2025 1:00 PM EST Office Visit [facility] ADULT DENT[facility] [address] [place] [address] See Feldman, DMD [address] [place] [address] documented as of this encounter Visit Diagnoses Not on filedocumented in this encounter Additional Health Concerns Assessment Noted Time PHQ-9 Depression Total Score: 6 03/15/20 24 10:13 AM EDT documented as of this encounter Care Teams Staff Command And Control Officer Relationship Specialty Start Date End Date Karina Minor MD [address] [place] [address] PCP - General Family Medicine 11/01/13 08/26/25 Yolanda Saucedo CNP [address] [place] [address] PCP - General Family Medicine 08/27/25 documented as of this encounter
--- OUTSIDE RECORDS SUMMARY | 2025-10-22 12:57 | XMS_ITS | Encounter Summary ---
Author Organization [employer] Address [address] [facility] 7t [place] [address] Care Team Providers Care Hospice Chaplain Name Role Phone Karina Minor MD Primary Care Provider [phone] Yolanda Saucedo CNP Primary Care Provider [phone] Encounter Details Date Type Department Care Team (Late Contact Info) Description 12/11/2022 Orders Only [facility] [address] [place], [place] [phone] Marisol Brantley RN Social History Tobacco Use [...] Department Care Team (Late Contact Info) Description 11/16/2025 1:00 PM EST Office Visit [facility] ADULT [facility] [address] [place] [address] See Feldman, DMD [address] [place] [address] documented as of this encounter Visit Diagnoses Not on filedocumented in this encounter Care Teams Hospice Chaplain Relationship Specialty Start Date End Date Karina Minor MD [address] [place] [address] PCP - General Family Medicine 11/01/13 08/26/25 Yolanda Saucedo CNP [address] [place] [address] PCP - General Family Medicine 08/27/25 documented as of this encounter
--- OUTSIDE RECORDS SUMMARY | 2025-10-22 12:57 | XMS_ITS | Clinical Summary ---
Author Organization [employer] Address [address] [facility] [address] [place] [address] Care Team Providers Care Professor Of Chemical Engineering Name Role Phone Yolanda Saucedo CNP Primary Care Provider [phone] Allergies Active Allergy Reactions Criticality Noted Date [...] Sodium Fluoride 1.1 % creamIndication s:Dental caries [place] teeth for 2 minutes, morning and night. [...] organization. Date Type Department Care Team Description 10/22/2025 10:00 AM EST Office Visit [facility] ADULT DENTAL [address] [place] [address] See Feldman DMD Dental caries (Primary Dx) 10/15/2025 Telephone [facility] [address] [place] [address] Yolanda Saucedo CNP 10/15/2025 Telephone [facility]ED[facility] [address] [place] [address] Indu Abreu RN 10/04/2025 Refill [facility] [address] [place] [address] Yolanda Saucedo CNP 09/24/2025 10:00 AM EST Office Visit [facility] ADULT D[facility] [address] [place] [address] See Feldman DMD Dental caries (Primary Dx); 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 09/21/2025 Refill [facility] [address] [place] [address] Karina Minor MD 09/04/2025 1:30 PM EST Office Visit [facility] ADULT [facility] [address] [place] [address] Angel Alvarez Dental calculus (Primary Dx); 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; Partial edentulism, class III; Dental caries 07/24/2025 10:15 AM EDT Office Visit [facility] [address] [place] [address] Karina Minor MD Primary hypertension (Primary Dx); Mixed hyperlipidemia; Constipation, unspecified constipation type; Blood in stool; Encounter for screening mammogram for breast cancer; Encounter for immunization; Encounter for annual wellness visit 07/24/2025 Travel 07/23/2025 Refill [facility] [address] [place] [address] Karina Minor MD from Last 3 Months [...] Pressure 136/80 10/22/2025 10:12 AM EST Pulse 70 09/04/2025 1:25 PM [...] Description 11/16/2025 1:00 PM EST Office Visit [facility] ADULT [facility] [address] [place] [address] See Feldman, DMD [address] [place] [address] Health Maintenance Due Date Last Done Comments [...] Cervical Cancer Screening 01/26/2022 HPV/Cotest 01/26/2022 01/26/2017 SDOH Screening 03/07/2025 03/07/2024 Depression Screening 03/15/2025 03/15/2024, 03/15/20 24 COVID-19 Vaccine ( season) 2025 07/25/2024, 08/04/2023, 08/16/2022, Additional history exists Dental Oral Exam 03/05/2026 09/04/2025, , 10/26/2023, Additional history exists Dental Prophylaxis 03/05/2026 09/04/2025, 0 07/11/2024, 10/26/2023, Additional history exists Dental X-Ray: Bitewings 09/05/2026 09/04/20 25, 07/11/2024, 03/15/2023, Additional history exists Mammogram 10/12/2026 10/12/2025, 05/26, 06/15/2019, Additional history exists Tobacco Screening 10/22/2026 10/22/2025 Colonoscopy 11/09/2027 11/09/2017 Colorectal Cancer Screening 11/09/2027 [...] Routine 10/22/2025 10:00 AM EST Dental caries 4 DO RESIN-BASED COMPOSITE - 2 SURF, POSTERIOR Routine 10/22/2025 10:00 AM EST Dental caries BI MAMMOGRAM SCREENING TOMOSYNTHESIS BILATERAL Routine 10/12/2025 2:10 PM EST Encounter for screening mammogram for breast cancer CASE PRESENTATION, DETAILED AND EXTENSIVE TREATMENT PLANNING Routine 09/24/2025 10:00 AM EST 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 Dental caries 18 MOL RESIN-BASED COMPOSITE - 3 SURF, POSTERIOR Routine 09/24/2025 10:00 AM EST 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 Dental caries 19 DO RESIN-BASED COMPOSITE - 2 SURF, POSTERIOR Routine 09/24/2025 10:00 AM EST 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 Dental caries PERIODIC ORAL EVALUATION - ESTABLISHED PATIENT Routine 09/04/2025 1:30 PM EST 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 Partial edentulism, class III CASE PRESENTATION, DETAILED AND EXTENSIVE TREATMENT PLANNING Routine 09/04/2025 1:30 PM EST 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 Partial edentulism, class III ORAL HYGIENE INSTRUCTIONS Routine 09/04/2025 1:30 PM EST 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 Partial edentulism, class III PROPHYLAXIS - ADULT Routine 09/04/2025 1 :30 PM EST 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 Partial edentulism, class III INTRAORAL - COMPLETE SERIES OF RADIOGRAPHIC IMAGES Routine 09/04/2025 1:30 PM EST 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 [address] Mammography Report Signed Patient: Radha Miller MR#: [id number] : 1965 Acct:[id number] Age/Sex: 60 / F ADM Date: 10/12/25 Loc: HO.MAMMO Attending Dr: Karina Minor MD Ordering Physician: Karina Minor MD Results: 2Benign Date of Service: 10/12/25 Follow Up: 1 Year From Orig inal Mammogram Procedure(s): MM tomosynthesis screening BI Accession Number(s): [id number] cc: Karina Minor MD; Yolanda Saucedo NP Reason For Exam: annual EXAMINATION: MM SCREENING DIGITAL BREAST TOMOSYNTHESIS, BILATERAL CLINICAL INFORMATION: Screening. Asymptomatic. COMPARISON: Mammography: Comparison is made with available priors TECHNIQUE: Digital breast mammography with tomosynthesis is performed in both the craniocaudal and mediolateral oblique views along with computer-aided detection (CAD). FINDINGS: There are scattered areas of fibroglandular density. Bilateral asymmetries are stable. There are no significant masses, abnormal calcifications, or other abnormalities. MM/MM tomosynthesis screening BI IMPRESSION: No mammographic evidence of malignancy. ASSESSMENT: BI-RADS Category 2: Benign RECOMMENDATION: Routine annual mammography screening. 1 year F/U This examination should not preclude the clinical evaluation of a suspicious palpable abnormality. This patient's information was entered into a reminder system with a target due date for their next mammogram. Electronically signed by: Bev Moore DO 10/16/2025 04:25 PM [facility] [place] [place] Dictated By: Bev Moore DO Signed By: <Electronically signed by Bev Moore DO in OV> 10/16/25 1625 DD/ 1410 TD/TT: 10/12/25 1440 [employer]: Procedure Note Donotuseinterpreter, Image - 10/16/2025 [facility] [address] [place] [address] Mammography Report Signed Patient: Radha Miller [facility]#: [id number] : 1965Acct:[id number] Age/Sex: 60 / FADM Date: 10/12/25 Loc: HO.MAMMO Attending Dr: Karina Minor MD Ordering Physician: Karina Minor MDResults: 2Benign Date of Service: 10/12/25Follow Up: 1 Year From Orig inal Mammogram Procedure(s): MM tomosynthesis screening BI Accession Number(s): [id number] cc: Karina Minor MD; Yolanda Saucedo NP Reason For Exam: annual EXAMINATION: MM SCREENING DIGITAL BREAST TOMOSYNTHESIS, BILATERAL CLINICAL INFORMATION: Screening. Asymptomatic. COMPARISON: Mammography: Comparison is made with available priors TECHNIQUE: Digital breast mammography with tomosynthesis is performed in both the craniocaudal and mediolateral oblique views along with computer-aided detection (CAD). FINDINGS: There are scattered areas of fibroglandular density. Bilateral asymmetries are stable. There are no significant masses, abnormal calcifications, or other abnormalities. MM/MM tomosynthesis screening BI IMPRESSION: No mammographic evidence of malignancy. ASSESSMENT: BI-RADS Category 2: Benign RECOMMENDATION: Routine annual mammography screening. 1 year F/U This examination should not preclude the clinical evaluation of a suspicious palpable abnormality. This patient's information was entered into a reminder system with a target due date for their next mammogram. Electronically signed by: Bev Moore DO 10/16/2025 04:25 PM [facility] [place] [place] Dictated By: Bev Moore DO Signed By: <Electronically signed by Bev Moore DO in OV> 10/16/25 1625 DD/ 1410 TD/TT: 10/12/25 1440 [employer]: Karina Minor MD [facility] PROCEDURES Edited Result - Final * (ABNORMAL) Lipid Panel, Standard (01/18/2023 10:17 AM EDT) Cholesterol, Total 234(H) <200 mg/dL [facility] HDL Cholesterol 50 > OR = 50 mg/dL [facility] [place] [facility] Triglycerides 243(H) <150 mg/dL [facility] Comment: If a non-fasting specimen was collected, consider repeat triglyceride testing on a fasting specimen if clinically indicated. Cordell et al. J. of Clin. Lipidol. 2015;9:129-169. LDL Cholesterol 145(H) mg/dL (calc) [facility] [place] [facility] Comment: Reference range: <100 Desirable range <100 mg/dL for primary prevention; <70 mg/dL for patients with CHD or diabetic patients with > or = 2 CHD risk factors. LDL-C is now calculated using the Mulugeta-Zhao calculation, which is a validated novel method providing better accuracy than the Friedewald equation in the estimation of LDL-C. Mulugeta SS et al. SAMIR. 2013;310(19): 4229-4716 (http://Teleborder.Amplitude/faq/DCU050) Chol/HDLC Ratio 4.7 <5.0 (calc) [facility] Non-HDL Cholesterol 184(H) <130 mg/dL (calc) [facility] [place] [facility] Comment: For patients with diabetes plus 1 major ASCVD risk factor, treating to a non-HDL-C goal of <100 mg/dL (LDL-C of <70 mg/dL) is considered a therapeutic option. Blood Venous blood specimen / Unknown 01/18/2023 10:17 AM EDT 01/18/2023 10:17 AM EDT [facility] - 01/19/2023 4:57 AM EDT FASTING:YES FASTING: YES Karina Minor MD LAB BLOOD ORDERABLES Final Resul t [facility] [address], [place] [address] [facility] [place] [facility] [address] [place] [address] * Colonoscopy (11/09/2017) [facility] Colonoscopy Normal Normal Historical Provider HEALTH MAINTENANCE Final Result * HPV mRNA E6/E7 (01/26/2017 2:45 PM EDT) [facility] HPV mRNA E6/E7 Not Detected NOT DETECTED [facility] Comment: This test was performed using the APTIMA(R) HPV Assay ([employer] This assay detects E6/E7 viral messenger RNA (mRNA) from 14 high-risk HPV types (16,18,31,33,35,39,45,51, 52,56,58,59,66,68). For additional information please refer to: http://education.BookMyShow/faq/NJH782r2 (This link is being provided for informational/ educational purposes only.) Test Performed by [facility], [address] [place] [address] Moreno Nassar M.D., Ph.D., Director of Laboratories , [facility] [id number] Please note: Effective 07/06/2016, HPV testing will be performed using [employer]'s APTIMA test which targets mRNA. Detecting mRNA instead of DNA, as in older methods, offers significant improvements in specificity. 01/26/2017 2:45 PM EDT us Brianna Reyes CNM HISTORICAL/NON ORDERABLE LABS Final Result [facility] [address] from Last 3 Months or Most Recently Relevant to Health Maintenance Insurance [facility] ONE CARE < [address] [place] [id number] [facility] Care Teams Professor Of Chemical Engineering Relationship Specialty Start Date End Date Yolanda Saucedo CNP [address] [place] [id number] PCP - General Family Medicine 08/27/25
--- OUTSIDE RECORDS SUMMARY | 2025-10-22 12:57 | XMS_ITS | Encounter Summary ---
Author Organization [employer] Address [address] [facility] 7[address] [place] [address] Care Team Providers Care Monumental Stonemason Name Role Phone Karina Minor MD Primary Care Provider [phone] Yolanda Saucedo CNP Primary Care Provider [phone] Encounter Details Date Type Department Care Team (Late st Contact Info) Description 01/19/2023 Orders Only [facility] [address] [place], [place] [phone] Karina Minor MD [address] [place] [address] Social History Tobacco Use Types Packs/Day Years [...] 11/16/2025 1:00 PM EST Office Visit [facility] ADULT DENTAL [address] [place], [place] [phone] See Feldman DMD [address] [place], [place] [phone] documented as of this encounter Visit Diagnoses Not on filedocumented in this encounter Care Teams Monumental Stonemason Relationship Specialty Start Date End Date Karina Minor MD [address] [place] [phone] PCP - General Family Medicine 11/01/13 08/26/25 Yolanda Saucedo CNP [address] [place] [address] PCP - General Family Medicine 08/27/25 documented as of this encounter
[2025-10-23 07:50] LABS: HIV Num 1 0.05 S/CO (0.00-0.99)
== END 2025-10-22 11:03 ==
LOC: HO.CHCLDS 11:02
PROVIDERS: Referring Provider Registered Nurse
DX: Z11.1 Encounter for screening for respiratory tuberculosis (principal); Z11.4 Encounter for screening for human immunodeficiency virus [HIV]; Z11.59 Encounter for screening for other viral diseases; Z20.2 Contact with and (suspected) exposure to infections with a predominantly sexual mode of transmission; N89.8 Other specified noninflammatory disorders of vagina
CPT/HCPCS: 36415; 86481; 86592; 87389; 87522